=== PATIENT | female | born 1955 | race Caucasian/White ===

== ENCOUNTER 2017-03-21 12:44 | Emergency (ER) | payer MEDICARE ==
[2017-03-21 12:50] VITALS: RESP 18; TEMP 99
--- NOTE | 2017-03-21 13:31 | ED ---
General Adult HPI - General Chief complaint: Psychiatric Symptoms Stated complaint: Petitioned-Mental Health Time Seen by Provider: 03/21/17 13:18 Source: patient, RN notes reviewed Mode of arrival: ambulatory Limitations: no limitations - History of Present Illness Initial comments: Patient is a pleasant 61-year-old female presenting by EMS with police escort for mental health evaluation. Patient is unclear why she is here. Patient admits to not taking her medication. Patient admits to having agitation at times and confrontations with others. Patient admits she does not sleep much. Patient has been eating and showering. Patient denies suicidal or homicidal thoughts. Patient denies hallucinations. No alcohol or street drug use. - Related Data Home Medications Medication Instructions Recorded Confirmed Benazepril [Lotensin] 40 mg PO DAILY 03/04/14 03/21/17 HYDROcodone/APAP 10-325MG [[place] 1 tab PO BID 04/13/15 03/21/17 10-325] Cyclobenzaprine [Flexeril] 10 mg PO TID 03/21/17 03/21/17 QUEtiapine FUMARATE [Seroquel Xr] 300 mg PO HS 03/21/17 03/21/17 Allergies Allergy/AdvReac Type Severity Reaction Status Date / Time No Known Allergies Allergy Verified 03/21/17 14:36 Review of Systems ROS Statement: Those systems with pertinent positive or pertinent negative responses have been documented in the HPI. ROS Other: All systems not noted in ROS Statement are negative. Constitutional: Denies: fever Eyes: Denies: eye pain ENT: Denies: ear pain Respiratory: Denies: cough Cardiovascular: Denies: chest pain Endocrine: Denies: fatigue Gastrointestinal: Denies: abdominal pain Genitourinary: Denies: dysuria Musculoskeletal: Denies: back pain Skin: Denies: rash Neurological: Denies: weakness Psychiatric: Denies: auditory hallucinations, visual hallucinations Past Medical History Past Medical History: Hypertension Additional Past Medical History / Comment(s): chronic pain History of Any Multi-Drug Resistant Organisms: None Reported Past Surgical History: Hysterectomy Additional Past Surgical History / Comment(s): CARPAL TUNNEL, BILATERAL TOTAL KNEE REPLACEMENT Past Psychological History: Anxiety, Bipolar Smoking Status: Never smoker Past Alcohol Use History: Abuse, Daily Past Drug Use History: None Reported General Exam Limitations: no limitations General appearance: alert, in no apparent distress Head exam: Present: atraumatic, normocephalic Eye exam: Present: normal appearance, PERRL ENT exam: Present: normal oropharynx Neck exam: Present: normal inspection Respiratory exam: Present: normal lung sounds bilaterally Cardiovascular Exam: Present: regular rate, normal rhythm GI/Abdominal exam: Present: soft. Absent: tenderness Extremities exam: Present: other (Ecchymosis left leg without tenderness.) Neurological exam: Present: alert Psychiatric exam: Present: normal affect, normal mood Skin exam: Present: other (Left leg ecchymosis) Course Vital Signs 03/21/17 03/21/17 03/21/17 12:47 13:37 15:00 Temperature 99 F Pulse Rate 103 H 96 103 H Respiratory 18 18 18 Rate Blood Pressure 179/95 171/96 166/77 O2 Sat by Pulse 96 97 96 Oximetry 03/21/17 18:20 Temperature Pulse Rate 79 Respiratory 18 Rate Blood Pressure 157/97 O2 Sat by Pulse 97 Oximetry Medical Decision Making - Medical Decision Making Patient was seen by mental health services who does recommend discharge. Patient is agreeable to follow-up with her doctor this week. - Lab Data Lab Results 03/21/17 Range/Units 14:00 Urine Opiates Screen Not Detected (NotDetected) Ur Oxycodone Screen Not Detected (NotDetected) Urine Methadone Screen Not Detected (NotDetected) Ur Propoxyphene Screen Not Detected (NotDetected) Ur Barbiturates Screen Not Detected (NotDetected) U Tricyclic Antidepress Not Detected (NotDetected) Ur Phencyclidine Scrn Not Detected (NotDetected) Ur Amphetamines Screen Not Detected (NotDetected) U Methamphetamines Scrn Detected H (NotDetected) U Benzodiazepines Scrn Detected H (NotDetected) Urine Cocaine Screen Detected H (NotDetected) U Marijuana (THC) Screen Detected H (NotDetected) Disposition Clinical Impression: Poor mental health Disposition: HOME SELF-CARE Condition: Stable Instructions: Depression (ED) Additional Instructions: Please follow-up with your doctor this week. Return for thoughts of self-harm, not eating or sleeping, worsening symptoms or other concerns. Referrals: Adrianna Coates DO [Primary Care Provider] - 1-2 days Time of Disposition: 18:41
[2017-03-21 18:21] VITALS: BP 157/97; PULSE 79
== END 2017-03-21 18:58 | disposition home or self-care (01) ==
LOC: EC 12:44
DX: F99 Mental disorder, not otherwise specified (principal); T50.906A Underdosing of unspecified drugs, medicaments and biological substances, initial encounter; Z91.128 Patient's intentional underdosing of medication regimen for other reason; I10 Essential (primary) hypertension; G89.29 Other chronic pain; F41.9 Anxiety disorder, unspecified; F31.9 Bipolar disorder, unspecified; F14.90 Cocaine use, unspecified, uncomplicated; F12.90 Cannabis use, unspecified, uncomplicated; Z79.891 Long term (current) use of opiate analgesic; Z79.899 Other long term (current) drug therapy; Z72.89 Other problems related to lifestyle
CPT/HCPCS: 80306; 82075; 99285

== ENCOUNTER 2024-07-06 00:05 | Inpatient (IN) | payer MEDICARE, OTHER ==
--- NOTE | 2024-07-06 00:14 | ED ---
Altered Mental Status HPI - General Stated Complaint: AMS Time Seen by Provider: 07/06/24 00:10 Source: family, EMS Mode of arrival: EMS Limitations: altered mental status - History of Present Illness Initial Comments: This patient is a 69-year-old woman who arrives by ambulance to have evaluation of altered mental status. The patient does appear intoxicated/delirious and not able to give history. EMS reports that they were told patient frequently drinks. MD Complaint: altered mental status -: unknown Severity: severe Consistency of Symptoms: unknown Context: alcohol abuse Treatments Prior to Arrival: oxygen - Related Data Previous Rx's Medication Instructions Recorded Acetaminophen Tab [Tylenol] 650 mg PO Q6HR PRN tab 07/12/24 Furosemide [Lasix] 40 mg PO DAILY #7 tablet 07/12/24 HYDROcodone/APAP 5-325MG [[place] 1 tab PO Q4HR PRN 3 Days #18 tab 07/12/24 5-325] Ondansetron Odt [Zofran Odt] 4 mg PO Q8HR PRN #20 tab 07/12/24 Pantoprazole [Protonix] 40 mg PO BID #60 tab 07/12/24 Allergies Allergy/AdvReac Type Severity Reaction Status Date / Time No Known Allergies Allergy Verified 07/06/24 08:15 Review of Systems ROS Statement: Those systems with pertinent positive or pertinent negative responses have been documented in the HPI. ROS Other: All systems not noted in ROS Statement are negative. Limitations: ROS unobtainable due to patients medical condition Past Medical History Past Medical History: Hypertension Additional Past Medical History / Comment(s): chronic pain History of Any Multi-Drug Resistant Organisms: None Reported Past Surgical History: Hysterectomy Additional Past Surgical History / Comment(s): CARPAL TUNNEL, BILATERAL TOTAL KNEE REPLACEMENT Past Psychological History: Anxiety, Bipolar Past Alcohol Use History: Abuse, Daily Past Drug Use History: Cocaine, Marijuana, Methamphetamine General Exam General appearance: appears intoxicated, obtunded Head exam: Present: atraumatic, normocephalic Eye exam: Present: normal appearance, PERRL, EOMI, nystagmus. Absent: scleral icterus, conjunctival injection ENT exam: Present: normal oropharynx, mucous membranes dry Neck exam: Present: normal inspection, full ROM. Absent: tenderness, meningismus Respiratory exam: Present: normal lung sounds bilaterally. Absent: respiratory distress, wheezes, rales, rhonchi, stridor, accessory muscle use Cardiovascular Exam: Present: regular rate, normal rhythm, normal heart sounds. Absent: systolic murmur, diastolic murmur, rubs, gallop GI/Abdominal exam: Present: soft. Absent: distended, tenderness, guarding, rebound, rigid, mass Extremities exam: Present: normal inspection, normal capillary refill. Absent: pedal edema, calf tenderness Back exam: Present: normal inspection. Absent: CVA tenderness (R), CVA tenderness (L) Neurological exam: Present: altered, CN II-XII intact. Absent: motor sensory deficit Expanded Neurological exam: Present: protecting the airway Cranial nerves: EOM's Intact: Normal, Gag Reflex: Normal Motor strength exam: RUE: 5, LUE: 5, RLE: 5, LLE: 5 Eye Response: (3) open to voice Motor Response: (5) localizes to pain Verbal Response: incomprehensible sounds Estephanie Total: 10 Skin exam: Present: warm, dry, intact, pallor. Absent: rash Course Vital Signs 07/06/24 07/06/24 07/06/24 00:10 02:02 03:06 Temperature 97.5 F L Pulse Rate 91 97 96 Respiratory 20 20 20 Rate Blood Pressure 90/44 78/41 76/43 O2 Sat by Pulse 94 L 95 96 Oximetry 07/06/24 07/06/24 07/06/24 04:11 04:21 04:41 Temperature 97.3 F L 98.4 F Pulse Rate 104 H 106 H 102 H Respiratory 20 20 20 Rate Blood Pressure 68/39 82/51 82/47 O2 Sat by Pulse 99 98 Oximetry 07/06/24 07/06/24 07/06/24 05:28 05:57 06:12 Temperature 99 F Pulse Rate 98 104 H 105 H Respiratory 20 20 18 Rate Blood Pressure 88/58 109/61 110/74 O2 Sat by Pulse 100 98 99 Oximetry 07/06/24 07/06/24 07/06/24 06:38 06:48 06:52 Temperature 98.6 F 98.9 F 98.9 F Pulse Rate 105 H 104 H 104 H Respiratory 18 18 18 Rate Blood Pressure 98/55 107/77 107/77 O2 Sat by Pulse 100 98 98 Oximetry 07/06/24 07/06/24 07/06/24 07:42 08:39 17:37 Temperature 98.3 F Pulse Rate 100 98 78 Respiratory 18 18 20 Rate Blood Pressure 116/81 131/79 124/64 O2 Sat by Pulse 98 99 Oximetry Medical Decision Making - Medical Decision Making The patient had chest x-ray that interpreted as negative for acute infiltrate, pneumothorax, congestive heart failure The patient had CT scan of the brain that I interpreted as negative for acute bony injury, negative for acute intracranial hemorrhage or mass effect Patient is 69-year-old woman brought for altered mental status. Patient does appear intoxicated. Also at the initial exam there is dark stool suggestive of GI bleeding and the patient also has pallor. The patient subsequently found to be anemic and transfusion is ordered. IV Protonix ordered. Patient will be admitted for coverage against DTs and also to have additional workup for GI bleeding and anemia. Throughout the course in the emergency department the patient's family subsequently arrived and provided additional history that she is a regular drinker. The patient also became more alert and was able to follow commands. Was pt. sent in by a medical professional or institution ([facility], [employer], urgent care, hospital, or halfway...) When possible be specific @ -[No] Did you speak to anyone other than the patient for history (EMS, parent, family, police, friend...)? What history was obtained from this source @ -[EMS gave the initial history. Family member subsequently arrived and confirmed most details Did you review nursing and triage notes (agree or disagree)? Why? @ -[I reviewed and agree with nursing and triage notes] Were old charts reviewed (outside hosp., previous admission, EMS record, old EKG, old radiological studies, urgent care reports/EKG's, halfway records)? Report findings @ -[No old charts were reviewed] Differential Diagnosis (chest pain, altered mental status, abdominal pain women, abdominal pain men, vaginal bleeding, weakness, fever, dyspnea, syncope, headache, dizziness, GI bleed, back pain, seizure, CVA, palpatations, mental health, musculoskeletal)? @ -[Differential Altered Mental Status: Hypoglycemia, DKA, hypercapnia, ETOH, overdose, CO poisoning, trauma, myxedema coma, HTN encephalopathy, infection, encephalitis, psychosis, intercranial hemorrhage, hepatic encephalopathy, meningitis, CVA, this is not meant to be an all-inclusive list EKG interpreted by me (3pts min.). @ -[I interpreted as above] X-rays interpreted by me (1pt min.). @ -I interpreted as above CT interpreted by me (1pt min.). @ -[I interpreted as above U/S interpreted by me (1pt. min.). @ -[None done] What testing was considered but not performed or refused? (CT, X-rays, U/S, labs)? Why? @ -[None] What meds were considered but not given or refused? Why? @ -[None] Did you discuss the management of the patient with other professionals (professionals i.e. DrTerrance, PA, [employer], lab, RT, psych nurse, social sciences chair, comic artist, teacher, aviation ordnance officer, housing case manager)? Give summary @ -Case discussed with admitting physician and treatment recommendations are incorporated Was smoking cessation discussed for >3mins.? @ -[No] Was critical care preformed (if so, how long)? @ -[Yes, 40 minutes Were there social determinants of health that impacted care today? How? (Homelessness, low income, unemployed, alcoholism, drug addiction, transportation, low edu. Level, literacy, decrease access to med. care, half-way, rehab)? @ -[Suspect alcoholism Was there de-escalation of care discussed even if they declined (Discuss DNR or withdrawal of care, Hospice)? DNR status @ -[No] What co-morbidities impacted this encounter? (DM, HTN, Smoking, COPD, CAD, Cancer, CVA, ARF, Chemo, Hep., AIDS, mental health diagnosis, sleep apnea, morbid obesity)? @ -[None] Was patient admitted / discharged? Hospital course, mention meds given and route, prescriptions, significant lab abnormalities, going to OR and other pertinent info. @ -[Patient is a 69-year-old woman arriving to have evaluation for altered mental status. The patient also found to have significant anemia due to probable GI bleeding. The patient also with electrolyte abnormalities and will be admitted to have DT prophylaxis as well as workup of GI bleeding. Undiagnosed new problem with uncertain prognosis? @ -[No] Drug Therapy requiring intensive monitoring for toxicity (Heparin, Nitro, Insulin, Cardizem)? @ -[Yes, IV potassium, also blood transfusion Were any procedures done? @ -[No] Diagnosis/symptom? @ -[Acute altered mental status Acute alcohol intoxication Acute GI bleeding Acute anemia Acute hypokalemia Acute, or Chronic, or Acute on Chronic? @ -[Acute Uncomplicated (without systemic symptoms) or Complicated (systemic symptoms)? @ -[default] Side effects of treatment? @ -[No] Exacerbation, Progression, or Severe Exacerbation? @ -[No] Poses a threat to life or bodily function? How? (Chest pain, USA, VT, pneumonia, PE, COPD, DKA, ARF, appy, cholecystitis, CVA, Diverticulitis, Homicidal, Suicidal, threat to staff... and all critical care pts) @ -[Yes, there is risk of exsanguination. There is risk of DTs with significant morbidity and mortality. Note that this is a repeat document as the original appears to have been lost from the system - Lab Data Result diagrams: 07/11/24 02:56 07/11/24 02:56 Lab Results 07/06/24 07/06/24 07/06/24 Range/Units 00:21 00:21 00:21 WBC 10.7 H (3.8-10.6) k/uL RBC 1.22 L (3.80-5.40) m/uL Hgb 4.1 L* (11.4-16.0) gm/dL Hct 12.1 L* (34.0-46.0) % MCV 99.5 (80.0-100.0) fL MCH 33.5 (25.0-35.0) pg MCHC 33.6 (31.0-37.0) g/dL RDW 13.6 (11.5-15.5) % Plt Count 220 (150-450) k/uL MPV 8.2 Neutrophils % 67 % Lymphocytes % 24 % Monocytes % 6 % Eosinophils % 1 % Basophils % 0 % Neutrophils # 7.1 (1.3-7.7) k/uL Lymphocytes # 2.5 (1.0-4.8) k/uL Monocytes # 0.7 (0-1.0) k/uL Eosinophils # 0.1 (0-0.7) k/uL Basophils # 0.0 (0-0.2) k/uL PT (10.0-12.5) sec INR (<1.2) APTT (22.0-30.0) sec Sodium 138 (137-145) mmol/L Potassium 2.5 L* (3.5-5.1) mmol/L Chloride 93 L (98-107) mmol/L Carbon Dioxide 38 H (22-30) mmol/L Anion Gap 7 mmol/L BUN 45 H (7-17) mg/dL Creatinine 1.62 H (0.52-1.04) mg/dL Est GFR (CKD-EPI)AfAm 37 (>60 ml/min/1.73 sqM) Est GFR (CKD-EPI)NonAf 32 (>60 ml/min/1.73 sqM) Glucose 146 H (74-99) mg/dL POC Glucose (mg/dL) (70-110) mg/dL POC Glu Finishing Range Feeder ID Calcium 6.6 L (8.4-10.2) mg/dL Total Bilirubin <0.1 L (0.2-1.3) mg/dL AST 18 (14-36) U/L ALT 8 (4-34) U/L Alkaline Phosphatase 37 L (38-126) U/L Ammonia (<30) umol/L Troponin I 0.013 (0.000-0.034) ng/mL Total Protein 3.8 L (6.3-8.2) g/dL Albumin 2.1 L (3.5-5.0) g/dL Serum Alcohol 121 mg/dL Blood Type Blood Type Confirm Blood Type Recheck Bld Type Recheck Status Antibody Screen Crossmatch Spec Expiration Date 07/06/24 07/06/24 07/06/24 Range/Units 00:21 00:27 00:50 WBC (3.8-10.6) k/uL RBC (3.80-5.40) m/uL Hgb (11.4-16.0) gm/dL Hct (34.0-46.0) % MCV (80.0-100.0) fL MCH (25.0-35.0) pg MCHC (31.0-37.0) g/dL RDW (11.5-15.5) % Plt Count (150-450) k/uL MPV Neutrophils % % Lymphocytes % % Monocytes % % Eosinophils % % Basophils % % Neutrophils # (1.3-7.7) k/uL Lymphocytes # (1.0-4.8) k/uL Monocytes # (0-1.0) k/uL Eosinophils # (0-0.7) k/uL Basophils # (0-0.2) k/uL PT 11.8 (10.0-12.5) sec INR 1.1 (<1.2) APTT 22.8 (22.0-30.0) sec Sodium (137-145) mmol/L Potassium (3.5-5.1) mmol/L Chloride (98-107) mmol/L Carbon Dioxide (22-30) mmol/L Anion Gap mmol/L BUN (7-17) mg/dL Creatinine (0.52-1.04) mg/dL Est GFR (CKD-EPI)AfAm (>60 ml/min/1.73 sqM) Est GFR (CKD-EPI)NonAf (>60 ml/min/1.73 sqM) Glucose (74-99) mg/dL POC Glucose (mg/dL) 186 H (70-110) mg/dL POC Glu Finishing Range Feeder ID Burgess Arnold Calcium (8.4-10.2) mg/dL Total Bilirubin (0.2-1.3) mg/dL AST (14-36) U/L ALT (4-34) U/L Alkaline Phosphatase (38-126) U/L Ammonia <9 (<30) umol/L Troponin I (0.000-0.034) ng/mL Total Protein (6.3-8.2) g/dL Albumin (3.5-5.0) g/dL Serum Alcohol mg/dL Blood Type Blood Type Confirm Blood Type Recheck Bld Type Recheck Status Antibody Screen Crossmatch Spec Expiration Date 07/06/24 07/06/24 Range/Units 00:50 01:12 WBC (3.8-10.6) k/uL RBC (3.80-5.40) m/uL Hgb (11.4-16.0) gm/dL Hct (34.0-46.0) % MCV (80.0-100.0) fL MCH (25.0-35.0) pg MCHC (31.0-37.0) g/dL RDW (11.5-15.5) % Plt Count (150-450) k/uL MPV Neutrophils % % Lymphocytes % % Monocytes % % Eosinophils % % Basophils % % Neutrophils # (1.3-7.7) k/uL Lymphocytes # (1.0-4.8) k/uL Monocytes # (0-1.0) k/uL Eosinophils # (0-0.7) k/uL Basophils # (0-0.2) k/uL PT (10.0-12.5) sec INR (<1.2) APTT (22.0-30.0) sec Sodium (137-145) mmol/L Potassium (3.5-5.1) mmol/L Chloride (98-107) mmol/L Carbon Dioxide (22-30) mmol/L Anion Gap mmol/L BUN (7-17) mg/dL Creatinine (0.52-1.04) mg/dL Est GFR (CKD-EPI)AfAm (>60 ml/min/1.73 sqM) Est GFR (CKD-EPI)NonAf (>60 ml/min/1.73 sqM) Glucose (74-99) mg/dL POC Glucose (mg/dL) (70-110) mg/dL POC Glu Finishing Range Feeder ID Calcium (8.4-10.2) mg/dL Total Bilirubin (0.2-1.3) mg/dL AST (14-36) U/L ALT (4-34) U/L Alkaline Phosphatase (38-126) U/L Ammonia (<30) umol/L Troponin I (0.000-0.034) ng/mL Total Protein (6.3-8.2) g/dL Albumin (3.5-5.0) g/dL Serum Alcohol mg/dL Blood Type A Positive Blood Type Confirm A Positive Blood Type Recheck No Previous Record Bld Type Recheck Status CABO Indicated Antibody Screen NEGATIVE Crossmatch See Detail Spec Expiration Date 07/09/20242349 - EKG Data -: EKG Interpreted by Me EKG shows normal: sinus rhythm, axis (Normal), intervals, ST-T waves (Possible inferolateral ischemia, other T waves 1, aVL, 2, aVF, V3 through V6) Rate: normal (89 bpm) Disposition Clinical Impression: Altered mental status, Alcoholic intoxication, Anemia, Hypokalemia Disposition: ADMITTED IP TO THIS [facility] Condition: Serious Is patient prescribed a controlled substance at d/c from ED?: No
[2024-07-06 00:28] LABS: Glucose,Whole Blood 186 mg/dL (70-110)
[2024-07-06 00:32] LABS: Basophils % (A) 0 %; Eosinophils # (A) 0.1 k/uL (0-0.7); Eosinophils % (A) 1 %; Lymphocytes # (A) 2.5 k/uL (1.0-4.8); Lymphocytes % (A) 24 %; MCH 33.5 pg (25.0-35.0); MCHC 33.6 g/dL (31.0-37.0); MCV 99.5 fL (80.0-100.0); Mean Platelet Volume 8.2; Monocytes # (A) 0.7 k/uL (0-1.0); Monocytes % (A) 6 %; Neutrophils # (A) 7.1 k/uL (1.3-7.7); Neutrophils % (A) 67 %; Platelet Count 220 k/uL (150-450); RBC 1.22 m/uL (3.80-5.40); RDW 13.6 % (11.5-15.5); WBC 10.7 k/uL (3.8-10.6)
[2024-07-06 00:49] LABS: HCT 12.1 % (34.0-46.0); HGB 4.1 gm/dL (11.4-16.0)
[2024-07-06 00:54] LABS: ALT 8 U/L (4-34); AST 18 U/L (14-36); African American GFR (CKD) 37 (>60 ml/min/1.73 sqM); Albumin 2.1 g/dL (3.5-5.0); Alkaline Phosphatase 37 U/L (38-126); Blood Urea Nitrogen 45 mg/dL (7-17); Calcium 6.6 mg/dL (8.4-10.2); Chloride 93 mmol/L (98-107); Glucose 146 mg/dL (74-99); Non-African American GFR(CKD) 32 (>60 ml/min/1.73 sqM); Sodium 138 mmol/L (137-145); Total Bilirubin <0.1 mg/dL (0.2-1.3); Total Protein 3.8 g/dL (6.3-8.2)
[2024-07-06 01:00] LABS: Anion Gap 7 mmol/L
[2024-07-06 01:28] LABS: Alcohol 121 mg/dL; Carbon Dioxide 38 mmol/L (22-30); Potassium 2.5 mmol/L (3.5-5.1)
[2024-07-06] MEDS: SODIUM CHLORIDE 0.9% 500 ML 500 ML IV ONE (01:28)
[2024-07-06 01:38] LABS: INR 1.1 (<1.2); Partial Thromboplastin Time 22.8 sec (22.0-30.0); Prothrombin Time 11.8 sec (10.0-12.5)
[2024-07-06] MEDS: LORazepam 2 MG/ML INJ IV STA (01:58)
--- NOTE | 2024-07-06 02:08 | XR ---
EXAMINATION TYPE: XR chest 1V portable DATE OF EXAM: 07/06/2024 COMPARISON: CTA chest 2011 HISTORY: Altered mental status TECHNIQUE: Single frontal view of the chest is obtained. FINDINGS: There is no focal air space opacity, pleural effusion, or pneumothorax seen. The cardiac silhouette size is upper limits of normal. There is a healing or healed fracture of the posterior lef t fifth rib. IMPRESSION: No acute process. [facility], , 07/06/2024 2:05 AM
--- NOTE | 2024-07-06 02:09 | CT ---
EXAMINATION TYPE: CT brain wo con DATE OF EXAM: 07/06/2024 HISTORY: Pt coming from home. Pt AMS. Pt smells strong of alcohol. Pt arrived to the ER soiled with s tool. Automated Exposure Control for Dose Reduction was Utilized. TECHNIQUE: CT scan of the head is performed without contrast. COMPARISON: CT brain 2014. FINDINGS: There is no acute intracranial hemorrhage or midline shift identified. There is mild diff use ventricular and sulcal prominence . There is [id number] low-attenuation in the periventric ular white matter on the current study. The globes are intact and the visualized sinuses are clear. IMPRESSION: No acute intracranial hemorrhage or midline shift. There is mild diffuse age-related ce rebral atrophy and [id number] chronic small vessel ischemic change noted. [facility], , 07/06/2024 2:07 AM
[2024-07-06] MEDS ORDERED: NALOXONE 0.4 MG/ML 1 ML VIAL IV PRN (02:44)
[2024-07-06] MEDS: SODIUM CHLORIDE 0.9% 1,000 ML IV SCH (03:00)
[2024-07-06] MEDS: PANTOPRAZOLE 40 MG/10 ML VIAL IV SCH (03:00)
[2024-07-06] MEDS: LORazepam 2 MG/ML INJ IV PRN ×2 (03:04→04:17)
--- NOTE | 2024-07-06 04:00 | P.HPIM ---
History of Present Illness H&P Date: 07/06/24 Patient is a 69-year-old female with a PMH of alcohol abuse who was brought into the emergency room by EMS after she was found unresponsive at home by family members. The history is provided by the ED provider and from the family at the bedside (2 daughters). The patient was a lifelong history of alcohol abuse had been complaining of feeling somewhat under the weather over the past 2 to 3 days. The patient had cut down her daily alcohol intake during this time and she felt weak. She had also endorsed noticing some blood in her stools over the past several weeks to her daughters. Earlier this evening, the daughters went to her home to find her unresponsive on her couch with minimal bleeding. One of her daughters started CPR and activated EMS. Upon EMS arrival, the patient was noted to have soiled herself with bloody stools. In the emergency room, no meaningful history could be obtained from the patient as she was agitated and oriented only to self and not answering questions appropriately. CT brain was revealed mild to moderate chronic small vessel ischemic changes with chest x-ray unremarkable. EKG revealed sinus rhythm at [address] segment depression in leads V3 to V6 as well as lead II. There was diffuse T wave flattening. Laboratory evaluation was remarkable for hemoglobin 4.1 (previously 12.9 in 2017), potassium 2.5, chloride 93, CO2 38, BUN 45, creatinine 1.62, glucose 146, serum alcohol level 121 with troponin 0.013. Fecal occult blood was positive as per the ED provider. ED documentation reviewed and case discussed with ED provider. Review of systems: Pertinent positives and negatives as discussed in HPI, a complete review of systems was performed and all other systems are negative. Physical examination: Vital signs reviewed General: non toxic, no distress, appears at stated age, normal weight Derm: no unusual rashes/lesions, warm Head: atraumatic, normocephalic, symmetric Eyes: EOMI, no lid lag, anicteric sclera, pupils equal round reactive to light ENT: Nose and ears atraumatic Neck: No cervical lymphadenopathy, trachea midline, supple Mouth: no lip lesion, mucus membranes moist Cardiovascular: S1S2 reg, no murmur, positive dorsalis pedis pulse bilateral, no edema Lungs: CTA bilateral, no rhonchi, no rales, no accessory muscle use Abdominal: soft, nontender to palpation, no guarding Ext: muscle strength 5 out of 5 in all 4 extremities grossly, no gross muscle atrophy, no contractures Neuro: Agitated, no gross focal neuro deficits, moving all extremities, no notable facial droop Psych: Agitated, removing acutely attempting to remove all leads and monitors, oriented only to self Assessment: Severe anemia, suspect due to GI bleeding Altered mental status, suspect delirium tremens in setting of chronic alcohol abuse Hypokalemia Kidney injury, acute versus chronic Imaging: CT brain was revealed mild to moderate chronic small vessel ischemic changes with chest x-ray unremarkable. EKG revealed sinus rhythm at [address] segment depression in leads V3 to V6 as well as lead II. There was diffuse T wave flattening. Data Review: Laboratory evaluation was remarkable for hemoglobin 4.1 (previously 12.9 in 2017), potassium 2.5, chloride 93, CO2 38, BUN 45, creatinine 1.62, glucose 146, serum alcohol level 121 with troponin 0.013. Fecal occult blood was positive as per the ED provider. Plan: 2 unit of PRBCs ordered GI consulted Clear liquid diet Continue with Protonix IV every 12 hourly 40 mg Continue IV fluids with normal saline 125 cc/h Check magnesium levels Replace potassium Monitor BMP Fall and aspiration precautions CIWA protocol DVT prophylaxis: IPCDs The patient is admitted with an anticipated greater than 2 midnight stay for evaluation of anemia CODE STATUS: Full Code Discussed with: Patient Anticipated discharge place: Home Past Medical History Past Medical History: Hypertension Additional Past Medical History / Comment(s): chronic pain History of Any Multi-Drug Resistant Organisms: None Reported Past Surgical History: Hysterectomy Additional Past Surgical History / Comment(s): CARPAL TUNNEL, BILATERAL TOTAL KNEE REPLACEMENT Past Psychological History: Anxiety, Bipolar Past Alcohol Use History: Abuse, Daily Past Drug Use History: Cocaine, Marijuana, Methamphetamine Medications and Allergies Home Medications Medication Instructions Recorded Confirmed Type Amoxicillin/Potassium Clav 1 each PO Q12HR #20 tab 07/23/17 Rx [Augmentin 875-125 Tablet] RX: Naproxen Sodium [Naprelan] 500 mg PO BID #20 tab 07/23/17 Rx Allergies Allergy/AdvReac Type Severity Reaction Status Date / Time No Known Allergies Allergy Verified 07/23/17 10:46 Physical Exam Vitals: Vital Signs Temp Pulse Resp BP Pulse Ox 07/06/24 03:06 96 20 76/43 96 07/06/24 02:02 97 20 78/41 95 07/06/24 00:10 97.5 F L 91 20 90/44 94 L Intake and Output 07/05/24 07/05/24 07/06/24 14:59 22:59 06:59 Other: Weight 65.771 kg Results CBC & Chem 7: 07/06/24 00:21 07/06/24 00:21 Labs: Abnormal Lab Results - Last 24 Hours (Table) 07/06/24 07/06/24 07/06/24 Range/Units 00:21 00:21 00:27 WBC 10.7 H (3.8-10.6) k/uL RBC 1.22 L (3.80-5.40) m/uL Hgb 4.1 L* (11.4-16.0) gm/dL Hct 12.1 L* (34.0-46.0) % Potassium 2.5 L* (3.5-5.1) mmol/L Chloride 93 L (98-107) mmol/L Carbon Dioxide 38 H (22-30) mmol/L BUN 45 H (7-17) mg/dL Creatinine 1.62 H (0.52-1.04) mg/dL Glucose 146 H (74-99) mg/dL POC Glucose (mg/dL) 186 H (70-110) mg/dL Calcium 6.6 L (8.4-10.2) mg/dL Total Bilirubin <0.1 L (0.2-1.3) mg/dL Alkaline Phosphatase 37 L (38-126) U/L Total Protein 3.8 L (6.3-8.2) g/dL Albumin 2.1 L (3.5-5.0) g/dL Crossmatch 07/06/24 Range/Units 00:50 WBC (3.8-10.6) k/uL RBC (3.80-5.40) m/uL Hgb (11.4-16.0) gm/dL Hct (34.0-46.0) % Potassium (3.5-5.1) mmol/L Chloride (98-107) mmol/L Carbon Dioxide (22-30) mmol/L BUN (7-17) mg/dL Creatinine (0.52-1.04) mg/dL Glucose (74-99) mg/dL POC Glucose (mg/dL) (70-110) mg/dL Calcium (8.4-10.2) mg/dL Total Bilirubin (0.2-1.3) mg/dL Alkaline Phosphatase (38-126) U/L Total Protein (6.3-8.2) g/dL Albumin (3.5-5.0) g/dL Crossmatch See Detail
[2024-07-06] MEDS: POTASSIUM CHLORIDE 10 MEQ in WATER FOR INJECTION 1 100ML.BAG IVPB SCH ×2 (04:23→13:16)
[2024-07-06] MEDS: Acetaminophen-Codeine 300-30mg TAB PO STA (07:47)
[2024-07-06 10:25] LABS: HCT 21.1 % (34.0-46.0); MCH 32.3 pg (25.0-35.0); MCHC 33.8 g/dL (31.0-37.0); MCV 95.5 fL (80.0-100.0); Mean Platelet Volume 8.6; Platelet Count 184 k/uL (150-450); RBC 2.21 m/uL (3.80-5.40); RDW 15.6 % (11.5-15.5); WBC 13.4 k/uL (3.8-10.6)
[2024-07-06 10:31] LABS: African American GFR (CKD) 44 (>60 ml/min/1.73 sqM); Anion Gap 0 mmol/L; Blood Urea Nitrogen 47 mg/dL (7-17); Calcium 6.7 mg/dL (8.4-10.2); Carbon Dioxide 34 mmol/L (22-30); Chloride 105 mmol/L (98-107); Glucose 127 mg/dL (74-99); Non-African American GFR(CKD) 38 (>60 ml/min/1.73 sqM); Potassium 3.3 mmol/L (3.5-5.1); Sodium 139 mmol/L (137-145)
[2024-07-06 10:34] LABS: HGB 7.1 gm/dL (11.4-16.0)
--- NOTE | 2024-07-06 11:56 | P.CONS ---
History of Present Illness - Reason for Consult Consult date: 07/06/24 GI bleed Requesting physician: Amador Norton - Chief Complaint GI bleed, altered mental status changes - History of Present Illness This a pleasant 69-year-old white female who was brought into the emergency department yesterday after being found unresponsive by her family. Apparently patient had not been feeling well for last several days with nausea and vomiting as well as diarrhea. Reportedly patient had episode of coffee-ground emesis yesterday and 2 bowel movements that were black. Past medical history includes alcohol abuse, history of drug use, and hypertension. She denies any previous history of GI bleed. States she had no abdominal pain associated with it. States she did feel like she had fevers and chills. She was noted to have a hemoglobin of 4.2 on admission and gastroenterology was consulted for GI bleed. Patient was currently having a bowel movement, she had a small formed brown bowel movement. She has had no further notable dark stool since yesterday. No further emesis. Denies any history of peptic ulcer disease, no previous upper endoscopy. Last colonoscopy she reports in 1995. States that she has been taking quite a bit of Advil over the last couple weeks duration due to not feeling well. Denies any abdominal pain, no nausea or vomiting currently. States that she drinks 2 tall beers daily. States only current drug use is marijuana. States she has been drinking all of her life. She used to be a heavier drinker but has cut back recently. She is status post 2 units of blood Admitting labs WBC 10.7 hemoglobin 4.1 hematocrit 12.1 platelet count 220,000 INR 1.1 sodium 138 potassium 2.5 BUN 45 creatinine 1.6 total bilirubin less than 0.1 AST 18 ALT 8 alkaline phosphatase 37 ammonia less than 9 serum alcohol level 121 Review of Systems REVIEW OF SYSTEMS: CARDIOPULMONARY: No chest pain or shortness of breath. Gastrointestinal: No abdominal pain. No nausea or vomiting. No hematemesis, reported coffee-ground emesis x 1. No rectal bleeding, reported melena. GENITOURINARY: No dysuria or hematuria. MUSCULOSKELETAL: Reports normal range of motion. SKIN: No rashes. No jaundice. ENDOCRINE: No chills, fevers. No excessive weight gain or loss. No polydipsia or polyuria. PSYCHIATRIC: Unremarkable. NEUROLOGY: No change in mental status. Denies dizziness, headache. ENT: Vision unremarkable. CONSTITUTIONAL: No recent weight loss. No fever, chills, night sweats. Past Medical History Past Medical History: Hypertension Additional Past Medical History / Comment(s): chronic pain History of Any Multi-Drug Resistant Organisms: None Reported Past Surgical History: Hysterectomy Additional Past Surgical History / Comment(s): CARPAL TUNNEL, BILATERAL TOTAL KNEE REPLACEMENT Past Psychological History: Anxiety, Bipolar Past Alcohol Use History: Abuse, Daily Past Drug Use History: Cocaine, Marijuana, Methamphetamine Medications and Allergies Home Medications Medication Instructions Recorded Confirmed Type Ibuprofen [Motrin Ib] 200 mg PO Q6H PRN 07/06/24 07/06/24 History Allergies Allergy/AdvReac Type Severity Reaction Status Date / Time No Known Allergies Allergy Verified 07/06/24 08:15 Physical Exam Vitals: Vital Signs Temp Pulse Resp BP Pulse Ox 07/06/24 06:52 98.9 F 104 H 18 107/77 98 07/06/24 06:48 98.9 F 104 H 18 107/77 98 07/06/24 06:38 98.6 F 105 H 18 98/55 100 07/06/24 06:12 99 F 105 H 18 110/74 99 07/06/24 05:57 104 H 20 109/61 98 07/06/24 05:28 98 20 88/58 100 07/06/24 04:41 102 H 20 82/47 07/06/24 04:21 98.4 F 106 H 20 82/51 98 07/06/24 04:11 97.3 F L 104 H 20 68/39 99 07/06/24 03:06 96 20 76/43 96 07/06/24 02:02 97 20 78/41 95 07/06/24 00:10 97.5 F L 91 20 90/44 94 L Intake and Output 07/05/24 07/06/24 07/06/24 22:59 06:59 14:59 Intake Total 310 Balance 310 Intake: Blood Product 310 Rc As-1 Unit 0 [id number] Rc As-1 Unit 310 [id number] Other: Weight 65.771 kg General appearance: The patient is alert, oriented, appears in no acute distress. HET: Head is normocephalic and atraumatic. Pupils are equal and reactive. Neck: Supple. Heart: Regular. Lungs: Equal expansion, normal respiratory effort. Abdomen: Soft, nontender, nondistended. Extremities: Normal skin color and turgor. Neurological: No focal deficits. Alert and oriented x 3 Results CBC & Chem 7: 07/06/24 09:47 07/06/24 09:47 Labs: Abnormal Lab Results - Last 24 Hours (Table) 07/06/24 07/06/24 07/06/24 Range/Units 00:21 00:21 00:27 WBC 10.7 H (3.8-10.6) k/uL RBC 1.22 L (3.80-5.40) m/uL Hgb 4.1 L* (11.4-16.0) gm/dL Hct 12.1 L* (34.0-46.0) % Potassium 2.5 L* (3.5-5.1) mmol/L Chloride 93 L (98-107) mmol/L Carbon Dioxide 38 H (22-30) mmol/L BUN 45 H (7-17) mg/dL Creatinine 1.62 H (0.52-1.04) mg/dL Glucose 146 H (74-99) mg/dL POC Glucose (mg/dL) 186 H (70-110) mg/dL Calcium 6.6 L (8.4-10.2) mg/dL Total Bilirubin <0.1 L (0.2-1.3) mg/dL Alkaline Phosphatase 37 L (38-126) U/L Total Protein 3.8 L (6.3-8.2) g/dL Albumin 2.1 L (3.5-5.0) g/dL Crossmatch 07/06/24 Range/Units 00:50 WBC (3.8-10.6) k/uL RBC (3.80-5.40) m/uL Hgb (11.4-16.0) gm/dL Hct (34.0-46.0) % Potassium (3.5-5.1) mmol/L Chloride (98-107) mmol/L Carbon Dioxide (22-30) mmol/L BUN (7-17) mg/dL Creatinine (0.52-1.04) mg/dL Glucose (74-99) mg/dL POC Glucose (mg/dL) (70-110) mg/dL Calcium (8.4-10.2) mg/dL Total Bilirubin (0.2-1.3) mg/dL Alkaline Phosphatase (38-126) U/L Total Protein (6.3-8.2) g/dL Albumin (3.5-5.0) g/dL Crossmatch See Detail Assessment and Plan (1) GI bleed Narrative/Plan: 69-year-old female who is a daily drinker and was found to be unresponsive was brought into the emergency department also noted to be severely anemic with hemoglobin of 4.1. No previous GI bleed, he has not been feeling well and has been using quite a bit of NSAIDs. No anticoagulation. Reportedly had coffee-gr ound emesis well as hematemesis and dark black stools. Need to consider possible upper GI bleed with patient having hematemesis and black stool especially in the setting of alcohol abuse Current Visit: Yes Status: Acute Code(s): K92.2 - GASTROINTESTINAL HEMORRHAGE, UNSPECIFIED SNOMED Code(s): 42570715 (2) Anemia Current Visit: Yes Status: Acute Code(s): D64.9 - ANEMIA, UNSPECIFIED SNOMED Code(s): 671997831 (3) Hypokalemia Current Visit: Yes Status: Acute Code(s): E87.6 - HYPOKALEMIA SNOMED Code(s): 67975522 (4) Acute kidney injury Current Visit: Yes Status: Acute Code(s): N17.9 - ACUTE KIDNEY FAILURE, UNSPECIFIED SNOMED Code(s): 42933222 (5) Alcohol abuse Current Visit: Yes Status: Acute Code(s): F10.10 - ALCOHOL ABUSE, UNCOMPLICATED SNOMED Code(s): 74293902 Plan: 1. Continue symptomatic and supportive care 2. Protonix 40 mg daily 3. Avoid NSAIDs 4. Avoid anticoagulation 5. Patient may have clear liquid diet 6. Replace potassium per protocol 7. Repeat H&H, transfuse for hemoglobin less than 7 8. Will plan for EGD tomorrow 9. NPO. after midnight Thank you for this consultation, we will continue to follow. Dr. Lucila Singh I agree with the dictator's note, documented as a scribe by Jovita Cabrera.
[2024-07-06] MEDS: MAGNESIUM SULFATE-D5W PMX 1 GM in DEXTROSE/WATER 1 100ML.BAG IVPB SCH (13:17)
[2024-07-06 13:45] LABS: Appearance,Urine Clear (Clear); Bilirubin,Urine Negative (Negative); Blood,Urine Small (Negative); Color,Urine Colorless; Glucose,Urine (UA) Trace (Negative); Ketones,Urine Negative (Negative); Leukocyte Esterase,Urine Large (Negative); Nitrite,Urine Negative (Negative); PH, Urine 8.5 (5.0-8.0); Protein,Urine Trace (Negative); RBC,Urine 6 /hpf (0-5); Specific Gravity,Urine 1.015 (1.001-1.035); Squamous Epithelial Cell,Urine 4 /hpf (0-4); Urobilinogen,Urine <2.0 mg/dL (<2.0); WBC,Urine 23 /hpf (0-5)
[2024-07-06] MEDS: ACETAMINOPHEN TAB 325 MG TAB PO PRN (13:47)
[2024-07-06 13:58] LABS: Amphetamine Screen,Urine Not Detected (NotDetected); Barbiturate Screen,Urine Not Detected (NotDetected); Benzodiazepines Screen,Urine Detected (NotDetected); Cocaine Screen,Urine Not Detected (NotDetected); Methadone Screen, Urine Not Detected (NotDetected); Opiate Screen,Urine Detected (NotDetected); Oxycodone Screen, Urine Not Detected (NotDetected); Phencyclidine Screen,Urine Not Detected (NotDetected); Tricyclic Antidepressant,Urine Detected (NotDetected); Urn Cannabinoid Scrn Detected (NotDetected)
[2024-07-06 14:47] LABS: HCT 21.5 % (34.0-46.0); HGB 7.4 gm/dL (11.4-16.0); MCH 32.9 pg (25.0-35.0); MCHC 34.5 g/dL (31.0-37.0); MCV 95.5 fL (80.0-100.0); Mean Platelet Volume 9.4; Platelet Count 181 k/uL (150-450); Poikilocytosis Slight; RBC 2.25 m/uL (3.80-5.40); RDW 15.9 % (11.5-15.5); WBC 14.7 k/uL (3.8-10.6)
[2024-07-06] MEDS ORDERED: PEG 3350 (236 GM/BTL) + LYTES 4,000 ML BOTTLE PO ONE (17:00)
[2024-07-06] MEDS: LACTATED RINGERS 1,000 ML IV SCH (18:50)
[2024-07-06 23:27] LABS: Anisocytosis Slight; HGB 7.2 gm/dL (11.4-16.0); MCH 33.4 pg (25.0-35.0); MCHC 34.5 g/dL (31.0-37.0); MCV 96.7 fL (80.0-100.0); Macrocytosis Slight; Mean Platelet Volume 8.8; Platelet Count 182 k/uL (150-450); Poikilocytosis Slight; RBC 2.17 m/uL (3.80-5.40); RDW 16.4 % (11.5-15.5); WBC 15.7 k/uL (3.8-10.6)
[2024-07-07] MEDS: LORazepam 2 MG/ML INJ IV PRN (04:02)
[2024-07-07 04:04] LABS: Glucose,Whole Blood 110 mg/dL (70-110)
[2024-07-07] MEDS: PANTOPRAZOLE 40 MG/10 ML VIAL IV SCH (09:27)
[2024-07-07] MEDS: THIAMINE 100 MG TAB PO SCH (09:27)
[2024-07-07 09:40] LABS: Anisocytosis Slight; HGB 7.4 gm/dL (11.4-16.0); MCH 32.5 pg (25.0-35.0); MCHC 33.6 g/dL (31.0-37.0); MCV 96.8 fL (80.0-100.0); Macrocytosis Slight; Platelet Count 181 k/uL (150-450); Poikilocytosis Slight; RBC 2.27 m/uL (3.80-5.40); RDW 16.3 % (11.5-15.5); WBC 14.1 k/uL (3.8-10.6)
[2024-07-07 09:59] LABS: African American GFR (CKD) 70 (>60 ml/min/1.73 sqM); Anion Gap 1 mmol/L; Blood Urea Nitrogen 27 mg/dL (7-17); Calcium 7.6 mg/dL (8.4-10.2); Carbon Dioxide 24 mmol/L (22-30); Chloride 111 mmol/L (98-107); Glucose 83 mg/dL (74-99); Non-African American GFR(CKD) 61 (>60 ml/min/1.73 sqM); Potassium 3.9 mmol/L (3.5-5.1); Sodium 136 mmol/L (137-145)
--- NOTE | 2024-07-07 11:58 | P.PN ---
Subjective Progress Note Date: 07/07/24 69-year-old female with a PMH of alcohol abuse who was brought into the emergency room by EMS after she was found unresponsive at home by family members. Endorsed noticing some blood in her stools over the past several weeks to her daughters. Earlier this evening, the daughters went to her home to find her unresponsive on her couch with minimal bleeding. One of her daughters started CPR and activated EMS. Upon EMS arrival, the patient was noted to have soiled herself with bloody stools. CT brain was revealed mild to moderate chronic small vessel ischemic changes with chest x-ray unremarkable. EKG revealed sinus rhythm at [address] segment depression in leads V3 to V6 as well as lead II. There was diffuse T wave flattening. Laboratory evaluation was remarkable for hemoglobin 4.1 (previously 12.9 in 2017), potassium 2.5, chloride 93, CO2 38, BUN 45, creatinine 1.62, glucose 146, serum alcohol level 121 with troponin 0.013. Fecal occult blood was positive as per the ED provider. Patient was transfused 2 unit PRBC and started on Protonix IV. GI consulted, plans for EGD and C-scope. 07/07 Patient was seen and examined. No more bloody bowel movements or emesis. CBC, BMP this AM significant for WBC 14.1, RBC 2.27, Hg 7.4, Hct 22, Na 136, Cl 111, BUN 27, Ca 7.6. Mag 2. Plans for EGD + C-scope at 1PM. General: non toxic, no distress, appears at stated age Derm: warm, dry Head: atraumatic, normocephalic, symmetric Eyes: EOMI, no lid lag, anicteric sclera Mouth: no lip lesion, mucus membranes moist Cardiovascular: S1S2 reg, no murmur Lungs: Clear to auscultation bilateral, no rhonchi, no rales, no accessory muscle use Ext: no gross muscle atrophy, no edema, no contractures Neuro: no focal neuro deficits Psych: Alert, oriented, appropriate affect Based on my assessment of this patient, this patient meets a high complexity level of care. GI bleed: Protonix 40 mg IV QD. CBC Q8H. Transfuse if Hg < 7. Obtain Iron studies. GI plans for C-scope and EGD today. Acute metabolic encephalopathy: Likely related to EtOH withdrawal. Improving. Aspiration and Fall precautions. Obtain TSH, B12, Folate. Alcohol withdrawal: CIWA protocol with ativan PRN. Leukocytosis: Likely reactive. No signs of active infection. Monitor fever profile. Kidney injury, acute versus chronic: Continue NS at 130 cc/hr. Resolved: HypoMg, HypoK, Met alk CODE STATUS: FULL CODE DVT Prophylaxis: SCD GI Prophylaxis: Protonix. Designated medical POA if patient is not able to make medical decisions for themselves: I have reviewed the following strategy execution consultant notes: GI. I have reviewed the results of the following tests: CBC, BMP, Mag. I have ordered the following tests: I have discussed the care of this patient with the following independent historian: LEXUS Melchor. I have independently interpreted the following test below: Objective - Vital Signs Vital signs: Vital Signs Temp 98.3 F 07/07/24 08:07 Pulse 94 07/07/24 08:07 Resp 20 07/07/24 08:07 BP 174/87 07/07/24 08:07 Pulse Ox 95 07/07/24 08:07 FiO2 Intake & Output 07/06/24 07/07/24 07/07/24 18:59 06:59 18:59 Intake Total 310 Balance 310 Weight 65.771 kg 67.5 kg Intake: Blood Product 310 Rc As-1 Unit 310 [id number] Other: Voiding Method Bedpan # Voids 1 # Bowel Movements 1 - Labs CBC & Chem 7: 07/07/24 08:42 07/07/24 08:42 Labs: Abnormal Lab Results - Last 24 Hours (Table) 07/06/24 07/06/24 07/06/24 Range/Units 09:47 09:47 09:47 WBC 13.4 H (3.8-10.6) k/uL RBC 2.21 L (3.80-5.40) m/uL Hgb 7.1 L D (11.4-16.0) gm/dL Hct 21.1 L (34.0-46.0) % RDW 15.6 H (11.5-15.5) % Potassium 3.3 L (3.5-5.1) mmol/L Carbon Dioxide 34 H (22-30) mmol/L BUN 47 H (7-17) mg/dL Creatinine 1.42 H (0.52-1.04) mg/dL Glucose 127 H (74-99) mg/dL Calcium 6.7 L (8.4-10.2) mg/dL Magnesium 1.5 L (1.6-2.3) mg/dL Urine pH (5.0-8.0) Urine Protein (Negative) Urine Glucose (UA) (Negative) Urine Blood (Negative) Ur Leukocyte Esterase (Negative) Urine RBC (0-5) /hpf Urine WBC (0-5) /hpf Stool Occult Blood (Negative) Urine Opiates Screen (NotDetected) U Tricyclic Antidepress (NotDetected) U Benzodiazepines Scrn (NotDetected) U Marijuana (THC) Screen (NotDetected) 07/06/24 07/06/24 07/06/24 Range/Units 13:33 13:33 14:30 WBC 14.7 H (3.8-10.6) k/uL RBC 2.25 L (3.80-5.40) m/uL Hgb 7.4 L (11.4-16.0) gm/dL Hct 21.5 L (34.0-46.0) % RDW 15.9 H (11.5-15.5) % Potassium (3.5-5.1) mmol/L Carbon Dioxide (22-30) mmol/L BUN (7-17) mg/dL Creatinine (0.52-1.04) mg/dL Glucose (74-99) mg/dL Calcium (8.4-10.2) mg/dL Magnesium (1.6-2.3) mg/dL Urine pH 8.5 H (5.0-8.0) Urine Protein Trace H (Negative) Urine Glucose (UA) Trace H (Negative) Urine Blood Small H (Negative) Ur Leukocyte Esterase Large H (Negative) Urine RBC 6 H (0-5) /hpf Urine WBC 23 H (0-5) /hpf Stool Occult Blood (Negative) Urine Opiates Screen Detected H (NotDetected) U Tricyclic Antidepress Detected H (NotDetected) U Benzodiazepines Scrn Detected H (NotDetected) U Marijuana (THC) Screen Detected H (NotDetected) 07/06/24 07/06/24 Range/Units 20:29 22:58 WBC 15.7 H (3.8-10.6) k/uL RBC 2.17 L (3.80-5.40) m/uL Hgb 7.2 L (11.4-16.0) gm/dL Hct 21.0 L (34.0-46.0) % RDW 16.4 H (11.5-15.5) % Potassium (3.5-5.1) mmol/L Carbon Dioxide (22-30) mmol/L BUN (7-17) mg/dL Creatinine (0.52-1.04) mg/dL Glucose (74-99) mg/dL Calcium (8.4-10.2) mg/dL Magnesium (1.6-2.3) mg/dL Urine pH (5.0-8.0) Urine Protein (Negative) Urine Glucose (UA) (Negative) Urine Blood (Negative) Ur Leukocyte Esterase (Negative) Urine RBC (0-5) /hpf Urine WBC (0-5) /hpf Stool Occult Blood Positive H (Negative) Urine Opiates Screen (NotDetected) U Tricyclic Antidepress (NotDetected) U Benzodiazepines Scrn (NotDetected) U Marijuana (THC) Screen (NotDetected)
[2024-07-07] MEDS: IV FLUID CONTINUATION 1,000 ML IV ONE (12:30)
[2024-07-07] MEDS ORDERED: LIDOCAINE 1% INJ 10MG/ML (20 ML MDV) ONE ×2 (12:32→18:13)
[2024-07-07] MEDS ORDERED: PROPOFOL 10 MG/ML 20 ML VIAL IV ONE ×2 (12:32→18:13)
--- NOTE | 2024-07-07 12:51 | P.PCN ---
Date of Procedure: 07/07/24 Procedure(s) Performed: BRIEF HISTORY: Patient is a 69-year-old, pleasant, white female admitted to hospital with severe symptomatic anemia and hemoglobin of 4.5 g/dL requiring 3 years of biopsy transfusion. She has been having nausea vomiting coffee-ground emesis and black tarry stools for 2 days. History of alcohol abuse. Also takes Motrin on a regular basis.. PROCEDURE PERFORMED: Esophagogastroduodenoscopy with biopsy. PREOPERATIVE DIAGNOSIS: Acute upper GI bleed. IV sedation per anesthesia. PROCEDURE: After informed consent was obtained, the patient was brought into the endoscopy unit. IV sedation was administered by Anesthesia under continuous monitoring. Initially the Olympus GIF-140 video endoscope was inserted into the mouth. Esophagus intubated without any difficulty. It was gradually advanced into the stomach and duodenum and carefully examined. The bulb and the second part of the duodenum appeared normal. The scope at this time was withdrawn to the stomach, adequately insufflated with air, and upon careful examination, mucosa of the antrum, normal. There was a 2 cm deep ulceration along the incisura angularis with a brown pigmented spot but no active bleeding. Biopsies were done from the margin of the ulcer. Rest of the body, cardia and the fundus appeared normal. The scope was then withdrawn into the esophagus. Small hiatal hernia. The GE junction was located at 39 cm from the incisors. There was a short segment of Anaya's esophagus extending 3 mm proximal to the GE junction that was biopsied. The esophagus appeared normal. There were no erosions or ulcerations seen and the patient tolerated the procedure well. IMPRESSION: 1. 2 cm deep gastric ulceration with a brown pigmented spot but no active bleeding along the incisura angularis status post biopsy. 2. Short segment Anaya's esophagus s/p biopsy and small hiatal hernia RECOMMENDATIONS: The findings of this examination were discussed with the patient as well as her family. Follow-up with the biopsy results. She will continue with Protonix 40 mg twice daily.. Avoid NSAIDs. Start on a clear liquid diet and advance as tolerated. Recommend repeat upper endoscopy in 3 months to evaluate for ulcer healing.
[2024-07-07 14:12] LABS: Anisocytosis Slight; HCT 22.2 % (34.0-46.0); HGB 7.4 gm/dL (11.4-16.0); MCH 32.3 pg (25.0-35.0); MCHC 33.5 g/dL (31.0-37.0); MCV 96.3 fL (80.0-100.0); Mean Platelet Volume 8.7; Platelet Count 195 k/uL (150-450); Poikilocytosis Slight; RDW 16.3 % (11.5-15.5); WBC 14.2 k/uL (3.8-10.6)
[2024-07-07 17:14] LABS: Glucose,Whole Blood 132 mg/dL (70-110)
[2024-07-07 18:13] LABS: Anisocytosis Slight; MCH 32.6 pg (25.0-35.0); MCHC 33.9 g/dL (31.0-37.0); MCV 96.3 fL (80.0-100.0); Mean Platelet Volume 9.3; Platelet Count 203 k/uL (150-450); Poikilocytosis Slight; RBC 1.99 m/uL (3.80-5.40); RDW 16.3 % (11.5-15.5)
[2024-07-07 18:21] LABS: HCT 19.2 % (34.0-46.0); HGB 6.5 gm/dL (11.4-16.0)
[2024-07-07] MEDS: EPINEPHrine (PF) 1 MG/ML AMP MISCELLANE ONE (18:22)
--- NOTE | 2024-07-07 19:01 | P.PCN ---
Date of Procedure: 07/07/24 Procedure(s) Performed: BRIEF HISTORY: Patient is a 63-year-old, pleasant, white female admitted to hospital with acute upper GI bleed. She had an upper endoscopy done this afternoon around 1 PM and was noted to have a 2 cm deep antral ulcer along the incisura angularis with no active bleeding. There was a small pigmented spot noted but since there was no active bleeding no endoscopy intervention was performed except for biopsies. At 5:30 PM she had an episode of massive hematemesis and was transferred to the intensive care unit. Repeat CBC was 6.5 g/dL. Currently receiving 2 units of PRBC transfusion. She is scheduled for a repeat upper endoscopy in an emergency basis in the intensive care unit. PROCEDURE PERFORMED: Esophagogastroduodenoscopy with injection epinephrine and Endo Clip placement. PREOPERATIVE DIAGNOSIS: Acute upper GI bleed. IV sedation per anesthesia. PROCEDURE: After informed consent was obtained, the patient was brought into the endoscopy unit. IV sedation was administered by Anesthesia under continuous monitoring. Initially the Olympus GIF-140 video endoscope was inserted into the mouth. Esophagus intubated without any difficulty. It was gradually advanced into the stomach and duodenum and carefully examined. The bulb and the second part of the duodenum appeared normal. The scope at this time was withdrawn to the stomach, adequately insufflated with air, and upon careful examination, mucosa of the antrum, appeared normal. The previously noted gastric ulcer along the incisura angularis was noted which was actively bleeding. There was large clots noted in the fundus of the stomach with very aspirated. Therapeutic upper scope was used to aspirate all the clots. Following this the regular scope was used and was advanced into the stomach. 1 in 10,000 epinephrine was injected at the base of the ulcer until hemostasis was achieved. Following this 3 endoclips were placed on the bleeding ulcer and no further bleeding was noted and at this time the procedure was terminated. . Patient tolerated the procedure well. IMPRESSION: 1. Actively bleeding gastric ulceration measuring 2 cm in size along the incisura angularis status post injection epinephrine followed by Endo Clip placement with good hemostasis. RECOMMENDATIONS: The findings of this examination were discussed with the patient as well as her family. NG tube was placed. CBC will be performed every 6 hours. Transfused 2 units of blood. Continue IV Protonix 40 mg every 12 h ours. Surgical consultation is being requested as a standby at this time.
[2024-07-07] MEDS: PANTOPRAZOLE 40 MG/10 ML VIAL IVP STA (20:56)
--- NOTE | 2024-07-07 21:31 | XR ---
EXAMINATION TYPE: XR chest 1V portable DATE OF EXAM: 07/07/2024 9:15 PM CLINICAL INDICATION: Female, 69 years old with history of NG placement; COMPARISON: 07/06/2024 TECHNIQUE: XR chest 1V portable Frontal view of the chest. FINDINGS: Lungs/Pleura: There is no evidence of pleural effusion, focal consolidation, or pneumothorax. Pulmonary vascularity: Unremarkable. Heart/mediastinum: Cardiomediastinal silhouette is unremarkable. Musculoskeletal: No acute osseous pathology. Other findings: None IMPRESSION: No acute cardiopulmonary disease/process. [facility] Clare Murrell, , 07/07/2024 9:28 PM
[2024-07-08] MEDS: ACETAMINOPHEN IV (For NPO) 1,000 MG in EMPTY BAG 1 BAG IVPB ONE (01:44)
[2024-07-08 02:48] LABS: Basophils % (A) 0 %; Eosinophils # (A) 0.1 k/uL (0-0.7); Eosinophils % (A) 1 %; HCT 24.5 % (34.0-46.0); Lymphocytes # (A) 1.3 k/uL (1.0-4.8); Lymphocytes % (A) 11 %; MCH 32.1 pg (25.0-35.0); MCHC 34.3 g/dL (31.0-37.0); MCV 93.7 fL (80.0-100.0); Mean Platelet Volume 9.7; Monocytes # (A) 0.4 k/uL (0-1.0); Monocytes % (A) 3 %; Neutrophils # (A) 9.7 k/uL (1.3-7.7); Neutrophils % (A) 84 %; Platelet Count 153 k/uL (150-450); RBC 2.62 m/uL (3.80-5.40); RDW 15.6 % (11.5-15.5); WBC 11.5 k/uL (3.8-10.6)
[2024-07-08 03:08] LABS: HGB 8.4 gm/dL (11.4-16.0)
--- NOTE | 2024-07-08 04:56 | P.CNPUL ---
History of Present Illness Consult date: 07/08/24 Requesting physician: Yesenia Singh Reason for consult: other Chief complaint: GI bleeding, ICU management History of present illness: Patient is a 69-year-old white female with past medical history significant for alcoholism, polysubstance abuse. Patient has not followed with a primary care provider in over 4 years. Reportedly was found unresponsive on the ground by her family at home. Family briefly attempted CPR before calling EMS. According to the patient, she was having several days worth of black tarry stools. Apparently, had some abdominal discomfort and was treating this with Motrin [id number] every 4 hours. Denies anticoagulants. She denies any history of GI bleed. On arrival to the ED on 07/06/2024, her hemoglobin was critically low at 4.1 g/dL. Dr. Manjarrez did take the patient for EGD yesterday found a 2 cm deep gastric ulceration, but no active bleeding. This area was biopsied. There was also short segment Anaya esophagus. Patient was admitted to the selective care unit for observation. While on the floor, developed hematemesis. Rapid response team was initiated. Underwent bedside EGD, and is status post epinephrine injection and Endo Clip placement. Patient has received a total of 3 units PRBCs, an additional unit of packed red blood cells was infusing at the moment. She is now being evaluated in the intensive care unit. No further GI bleeding noted by nursing staff. Most recent hemoglobin is up to 6.5 g/dL. Denies shortness of breath, chest pain, lightheadedness. Blood pressure normotensive. Nontachycardic. Patient is currently tearful. Reportedly drinks 2, 24 ounce beers per day. Serum alcohol level was 121 on arrival. Patient is on the [facility] protocol. Urine toxicology screen positive for opiates, TCAs, benzodiazepines, and marijuana. CBC: WBC count 13, hemoglobin 6.5, hematocrit 19.2, platelets 203. CMP: Sodium 136, potassium 3.9, chloride 111, serum bicarb 24, BUN 27, creatinine 0.96, glucose 132. LFTs unremarkable on arrival. Ammonia less than 9. Troponin 0.013. Normal saline infusing at 125 mL/h. Not on any vasopressors. Review of Systems Constitutional: Denies chills, Denies fever, Denies weight gain, Denies weight loss Ears, nose, mouth and throat: Denies dysphagia (Still waiting Bella or having any trouble swallowing at home), Denies nasal discharge (Throat pain into because of the then NG tube because of the tube going 9-year-old), Denies swelling in mouth ( no), Denies swelling in throat, Denies sore throat Cardiovascular: Reports syncope, Denies chest pain, Denies leg edema, Denies lightheadedness, Denies shortness of breath Respiratory: Denies cough, Denies dyspnea, Denies hemoptysis Gastrointestinal: Reports abdominal pain, Reports diarrhea, Reports hematemesis, Reports melena, Reports nausea, Reports vomiting, Denies coffee ground emesis, Denies hematochezia Genitourinary: Denies dysuria Musculoskeletal: Denies limitation of motion Integumentary: Denies rash Neurological: Reports memory loss, Reports syncope, Denies confusion Psychiatric: Reports anxiety, Denies depression, Denies suicidal ideation Past Medical History Past Medical History: Hypertension Additional Past Medical History / Comment(s): chronic pain, ETOH, GI bleed. History of Any Multi-Drug Resistant Organisms: None Reported Past Surgical History: Hysterectomy Additional Past Surgical History / Comment(s): CARPAL TUNNEL, BILATERAL TOTAL KNEE REPLACEMENT Past Anesthesia/Blood Transfusion Reactions: No Reported Reaction Past Psychological History: Anxiety, Bipolar Smoking Status: Current some day smoker Past Alcohol Use History: Abuse, Daily Additional Past Alcohol Use History / Comment(s): Per pt. and daughter, pt. has been sober x1 year and relapsed today Past Drug Use History: Cocaine, Marijuana, Methamphetamine Medications and Allergies Home Medications Medication Instructions Recorded Confirmed Type Ibuprofen [Motrin Ib] 200 mg PO Q6H PRN 07/06/24 07/06/24 History Allergies Allergy/AdvReac Type Severity Reaction Status Date / Time No Known Allergies Allergy Verified 07/06/24 08:15 Physical Exam Vitals: Vital Signs Temp Pulse Pulse Resp BP BP Pulse Ox 07/07/24 23:19 98.5 F 85 23 177/90 96 07/07/24 23:00 86 15 144/76 97 07/07/24 22:45 84 23 148/70 99 07/07/24 22:30 84 23 138/74 97 07/07/24 22:15 85 22 143/68 99 07/07/24 22:00 85 24 151/76 98 07/07/24 21:45 86 22 159/78 99 07/07/24 21:39 99.1 F 88 18 159/78 99 07/07/24 21:30 88 24 171/86 100 07/07/24 21:19 98.6 F 91 16 171/86 98 07/07/24 21:15 89 22 162/85 99 07/07/24 21:07 98.5 F 90 24 165/87 98 07/07/24 21:04 98.4 F 90 24 162/85 96 07/07/24 21:00 86 22 97 07/07/24 20:45 118 H 24 98 07/07/24 20:30 85 16 97 07/07/24 20:15 83 22 97 07/07/24 20:00 98.5 F 89 17 155/79 96 07/07/24 19:45 85 22 144/77 97 07/07/24 19:30 86 24 130/66 97 07/07/24 19:15 84 24 139/68 96 07/07/24 19:00 84 12 115/61 98 07/07/24 18:45 79 12 91/46 96 07/07/24 18:39 98.1 F 85 12 100/58 07/07/24 18:30 87 12 101/53 97 07/07/24 18:19 97.6 F 87 18 133/72 97 07/07/24 18:15 93 27 H 129/65 96 07/07/24 18:00 92 36 H 131/74 94 L 07/07/24 17:45 97.4 F L 95 19 131/74 96 07/07/24 17:08 97.5 F L 110 H 20 148/76 97 07/07/24 16:00 97.3 F L 87 20 149/70 96 07/07/24 10:48 98.6 F 85 24 164/83 95 07/07/24 08:07 98.3 F 94 20 174/87 95 07/07/24 08:00 98.3 F 94 20 174/87 95 07/07/24 04:00 85 22 149/76 92 L 07/07/24 02:00 87 18 Intake and Output 07/07/24 07/07/24 07/08/24 14:59 22:59 06:59 Intake Total 100 907 435 Output Total 600 0 0 Balance -500 907 435 Intake: IV 100 625 125 Sodium Chloride 0.9% 1, 625 125 000 ml @ 125 mls/hr IV . Q8H [facility] Rx#:[id number] Blood Product 282 310 Rc As-1 Unit 0 310 [id number] Rc Pheresis 2 As3 Unit 282 [id number] Output: Urine 600 0 0 Other: Voiding Method Bedpan GENERAL EXAM: Alert, 69-year-old white female, laying on her left lateral side, NG tube to LIS, comfortable in no apparent distress. HEAD: Normocephalic and atraumatic EYES: Normal reaction of pupils, equal size. NOSE: Clear with pink turbinates. THROAT: No erythema or exudates. NECK: No masses, no JVD. CHEST: No chest wall deformity. LUNGS: Equal air entry with no crackles, wheeze, rhonchi or dullness. On room air. No conversational dyspnea or accessory muscle use.. CVS: S1 and S2 normal with no audible murmur, regular rhythm. No extra heart sounds ABDOMEN: No hepatosplenomegaly, active bowel sounds, no guarding or rigidity. SPINE: No scoliosis or deformity SKIN: No rashes CENTRAL NERVOUS SYSTEM: No focal deficits, tone is normal in all 4 extremities. EXTREMITIES: There is no peripheral edema, clubbing, or cyanosis. Peripheral pulses are intact. Results - Laboratory Findings CBC and BMP: 07/08/24 01:24 07/07/24 08:42 PT/INR, D-dimer PT 11.8 sec (10.0-12.5) 07/06/24 00:50 INR 1.1 (<1.2) 07/06/24 00:50 Abnormal lab findings: Abnormal Labs 07/06/24 07/06/24 07/06/24 00:21 00:21 00:27 WBC 10.7 H RBC 1.22 L Hgb 4.1 L* Hct 12.1 L* RDW Sodium Potassium 2.5 L* Chloride 93 L Carbon Dioxide 38 H BUN 45 H Creatinine 1.62 H Glucose 146 H POC Glucose (mg/dL) 186 H Calcium 6.6 L Magnesium Total Bilirubin <0.1 L Alkaline Phosphatase 37 L Total Protein 3.8 L Albumin 2.1 L Urine pH Urine Protein Urine Glucose (UA) Urine Blood Ur Leukocyte Esterase Urine RBC Urine WBC Stool Occult Blood Urine Opiates Screen U Tricyclic Antidepress U Benzodiazepines Scrn U Marijuana (THC) Screen Crossmatch 07/06/24 07/06/24 07/06/24 00:50 09:47 09:47 WBC 13.4 H RBC 2.21 L Hgb 7.1 L D Hct 21.1 L RDW 15.6 H Sodium Potassium Chloride Carbon Dioxide BUN Creatinine Glucose POC Glucose (mg/dL) Calcium Magnesium 1.5 L Total Bilirubin Alkaline Phosphatase Total Protein Albumin Urine pH Urine Protein Urine Glucose (UA) Urine Blood Ur Leukocyte Esterase Urine RBC Urine WBC Stool Occult Blood Urine Opiates Screen U Tricyclic Antidepress U Benzodiazepines Scrn U Marijuana (THC) Screen Crossmatch See Detail 07/06/24 07/06/24 07/06/24 09:47 13:33 13:33 WBC RBC Hgb Hct RDW Sodium Potassium 3.3 L Chloride Carbon Dioxide 34 H BUN 47 H Creatinine 1.42 H Glucose 127 H POC Glucose (mg/dL) Calcium 6.7 L Magnesium Total Bilirubin Alkaline Phosphatase Total Protein Albumin Urine pH 8.5 H Urine Protein Trace H Urine Glucose (UA) Trace H Urine Blood Small H Ur Leukocyte Esterase Large H Urine RBC 6 H Urine WBC 23 H Stool Occult Blood Urine Opiates Screen Detected H U Tricyclic Antidepress Detected H U Benzodiazepines Scrn Detected H U Marijuana (THC) Screen Detected H Crossmatch 07/06/24 07/06/24 07/06/24 14:30 20:29 22:58 WBC 14.7 H 15.7 H RBC 2.25 L 2.17 L Hgb 7.4 L 7.2 L Hct 21.5 L 21.0 L RDW 15.9 H 16.4 H Sodium Potassium Chloride Carbon Dioxide BUN Creatinine Glucose POC Glucose (mg/dL) Calcium Magnesium Total Bilirubin Alkaline Phosphatase Total Protein Albumin Urine pH Urine Protein Urine Glucose (UA) Urine Blood Ur Leukocyte Esterase Urine RBC Urine WBC Stool Occult Blood Positive H Urine Opiates Screen U Tricyclic Antidepress U Benzodiazepines Scrn U Marijuana (THC) Screen Crossmatch 07/07/24 07/07/24 07/07/24 08:42 08:42 13:52 WBC 14.1 H 14.2 H RBC 2.27 L 2.30 L Hgb 7.4 L 7.4 L Hct 22.0 L 22.2 L RDW 16.3 H 16.3 H Sodium 136 L Potassium Chloride 111 H Carbon Dioxide BUN 27 H Creatinine Glucose POC Glucose (mg/dL) Calcium 7.6 L Magnesium Total Bilirubin Alkaline Phosphatase Total Protein Albumin Urine pH Urine Protein Urine Glucose (UA) Urine Blood Ur Leukocyte Esterase Urine RBC Urine WBC Stool Occult Blood Urine Opiates Screen U Tricyclic Antidepress U Benzodiazepines Scrn U Marijuana (THC) Screen Crossmatch 07/07/24 07/07/24 17:13 17:22 WBC 13.0 H RBC 1.99 L Hgb 6.5 L* Hct 19.2 L* RDW 16.3 H Sodium Potassium Chloride Carbon Dioxide BUN Creatinine Glucose POC Glucose (mg/dL) 132 H Calcium Magnesium Total Bilirubin Alkaline Phosphatase Total Protein Albumin Urine pH Urine Protein Urine Glucose (UA) Urine Blood Ur Leukocyte Esterase Urine RBC Urine WBC Stool Occult Blood Urine Opiates Screen U Tricyclic Antidepress U Benzodiazepines Scrn U Marijuana (THC) Screen Crossmatch - Diagnostic Findings Chest x-ray: image reviewed Assessment and Plan Assessment: Acute upper GI bleeding, status post EGD x 2, found to have antral gastric ulcer status post epi injection and Endo Clip. Hemostasis achieved. No further active bleeding noted per nursing staff. Has received a total of 3 units PRBCs so far Acute blood loss anemia, secondary to above, most recent hemoglobin up to 6.5 g/dL, an additional unit of PRBCs is infusing at the moment Syncopal event Anaya's esophagus Acute alcohol intoxication, reportedly drinks 2, 24 ounce beers per day, serum EtOH level was 121 on arrival History of alcoholism Polysubstance abuse, urine toxicology screen positive for opiates, TCAs, benzodiazepines, and marijuana. History of cocaine/methamphetamine use in the past Remote history of tobacco use Plan: Patient's medications, labs, imaging were reviewed Patient was admitted for acute upper GI bleed, status post EGD x 2. Currently being monitored in the intensive care unit. Most recent hemoglobin up to 6.5 grams per deciliter, and patient is receiving an additional unit of packed red blood cells. Blood pressure and hemodynamics have remained stable throughout, not requiring any vasopressor support. Patient's gastric ulcer likely exacerbated by frequent NSAID use, Patient was educated on abstaining from further NSAID use Continue Protonix twice daily Monitor CIWA per protocol We will continue to follow the patient while in the intensive care unit I have personally seen and examined the patient, performed the documentation and the assessment and plan as written. Number of minutes spent on the visit:20 Time with Patient: Greater than 30
[2024-07-08 06:48] LABS: HCT 23.8 % (34.0-46.0); HGB 8.4 gm/dL (11.4-16.0); MCH 33.3 pg (25.0-35.0); MCHC 35.2 g/dL (31.0-37.0); MCV 94.5 fL (80.0-100.0); Mean Platelet Volume 8.8; Platelet Count 140 k/uL (150-450); Poikilocytosis Slight; RBC 2.52 m/uL (3.80-5.40); RDW 15.8 % (11.5-15.5)
[2024-07-08 07:30] LABS: African American GFR (CKD) 78 (>60 ml/min/1.73 sqM); Anion Gap 3 mmol/L; Blood Urea Nitrogen 26 mg/dL (7-17); Calcium 7.1 mg/dL (8.4-10.2); Carbon Dioxide 20 mmol/L (22-30); Chloride 114 mmol/L (98-107); Glucose 87 mg/dL (74-99); Non-African American GFR(CKD) 68 (>60 ml/min/1.73 sqM); Potassium 3.6 mmol/L (3.5-5.1); Sodium 137 mmol/L (137-145)
[2024-07-08] MEDS: ONDANSETRON 4 MG/2 ML VIAL IVP PRN (09:13)
[2024-07-08] MEDS: THIAMINE 100 MG/ML 2 ML VIAL IVP SCH (11:05)
--- NOTE | 2024-07-08 13:27 | P.GSCN ---
History of Present Illness Consult date: 07/08/24 History of present illness: CHIEF COMPLAINT: Altered mental status HISTORY OF PRESENT ILLNESS: This is a 69-year-old female who was found unresponsive by her family. She had not been feeling well for the last several days with nausea and vomiting. Patient was having coffee ground emesis with melanotic stools. She was initially evaluated by GI service and had EGD c ompleted yesterday which did reveal a 2 cm deep gastric ulceration with no active bleeding and a short segment of Anaya's esophagus and a small hiatal hernia. In the evening patient had a massive episode of hematemesis and required transfer to the ICU. Hemoglobin at that time was 6.5 and she received 2 units of blood. Another emergent EGD done yesterday ending by GI service that had shown an active bleeding gastric ulcer and is status post epinephrine injection with clip. Patient's hemoglobin on admission was 4.1. Patient has received a total of 4 units of blood during this admission and is currently in the ICU. Likely will be transferred out of the ICU this afternoon. She did have another black stool and a small amount of maroon output through NG tube. Surgical service has been consulted remain on standby due to patient's GI bleed. Patient does have history of alcohol dependence. PAST MEDICAL HISTORY: See below PAST SURGICAL HISTORY: See below MEDICATIONS: See below ALLERGIES: See below SOCIAL HISTORY: No illicit drug use. Daily alcohol use, cocaine, marijuana and methamphetamines REVIEW OF SYSTEMS: CONSTITUTIONAL: Denies fever or chills. HEENT: Denies blurred vision, vision changes, or eye pain. Denies hemoptysis CARDIOVASCULAR: Denies chest pain or pressure. RESPIRATORY: No shortness of breath. GASTROINTESTINAL: See HPI for pertinent findings HEMATOLOGIC: Denies bleeding disorders. GENITOURINARY: Denies any blood in urine or increased urinary frequency. SKIN: Denies pruitis. Denies rash. PHYSICAL EXAM: VITAL SIGNS: Reviewed GENERAL: Well-developed in no acute distress. HEENT: No sclera icterus. Extraocular movements grossly intact. Moist buccal mucosa. Head is atraumatic, normocephalic. No nasal drainage. ABDOMEN: Soft. Nondistended. Mild tenderness epigastric area NEUROLOGIC: Alert and oriented. Cranial nerves II through XII grossly intact. LABORATORY DATA: WBC 11 Hgb 4.1 and did go up to 7.4 then down to 6.5 yesterday and now up to 8.4 after blood transfusion Platelets 140 Sodium 137 potassium 3.6 creatinine 0.88 IMAGING: ASSESSMENT: 1. Acute GI bleed with a 2 cm bleeding gastric ulcer status post epinephrine injection and clip by GI service 2. Acute blood loss anemia due to bleeding gastric ulcer 3. Daily alcohol use 4. Polysubstance abuse PLAN: -Surgical service will remain on standby -Continue to follow -Continue to monitor for any signs or symptoms of bleeding -Continue to monitor hemoglobin -Continue IV Protonix -Keep patient n.p.o. Physician Counter Hand note has been reviewed by physician. Signing provider agrees with the documented findings, assessment, and plan of care. Past Medical History Past Medical History: Hypertension Additional Past Medical History / Comment(s): chronic pain, ETOH, GI bleed. History of Any Multi-Drug Resistant Organisms: None Reported Past Surgical History: Hysterectomy Additional Past Surgical History / Comment(s): CARPAL TUNNEL, BILATERAL TOTAL KNEE REPLACEMENT Past Anesthesia/Blood Transfusion Reactions: No Reported Reaction Past Psychological History: Anxiety, Bipolar Smoking Status: Current some day smoker Past Alcohol Use History: Abuse, Daily Additional Past Alcohol Use History / Comment(s): Per pt. and daughter, pt. has been sober x1 year and relapsed today Past Drug Use History: Cocaine, Marijuana, Methamphetamine Medications and Allergies Home Medications Medication Instructions Recorded Confirmed Type Ibuprofen [Motrin Ib] 200 mg PO Q6H PRN 07/06/24 07/06/24 History Allergies Allergy/AdvReac Type Severity Reaction Status Date / Time No Known Allergies Allergy Verified 07/06/24 08:15 Surgical - Exam Osteopathic Statement: *. No significant issues noted on an osteopathic structural exam other than those noted in the History and Physical/Consult. Vital Signs Temp Pulse Resp BP Pulse Ox 97.5 F L 91 20 90/44 94 L 07/06/24 00:10 07/06/24 00:10 07/06/24 00:10 07/06/24 00:10 07/06/24 00:10 Results - Labs 07/08/24 06:17 07/08/24 06:17 Abnormal Lab Results - Last 24 Hours (Table) 07/06/24 07/07/24 07/07/24 Range/Units 00:50 13:52 17:13 WBC 14.2 H (3.8-10.6) k/uL RBC 2.30 L (3.80-5.40) m/uL Hgb 7.4 L (11.4-16.0) gm/dL Hct 22.2 L (34.0-46.0) % RDW 16.3 H (11.5-15.5) % Plt Count (150-450) k/uL Neutrophils # (1.3-7.7) k/uL Chloride (98-107) mmol/L Carbon Dioxide (22-30) mmol/L BUN (7-17) mg/dL POC Glucose (mg/dL) 132 H (70-110) mg/dL Calcium (8.4-10.2) mg/dL Crossmatch See Detail 07/07/24 07/08/24 07/08/24 Range/Units 17:22 01:24 06:17 WBC 13.0 H 11.5 H 11.0 H (3.8-10.6) k/uL RBC 1.99 L 2.62 L 2.52 L (3.80-5.40) m/uL Hgb 6.5 L* 8.4 L D 8.4 L (11.4-16.0) gm/dL Hct 19.2 L* 24.5 L 23.8 L (34.0-46.0) % RDW 16.3 H 15.6 H 15.8 H (11.5-15.5) % Plt Count 140 L (150-450) k/uL Neutrophils # 9.7 H (1.3-7.7) k/uL Chloride (98-107) mmol/L Carbon Dioxide (22-30) mmol/L BUN (7-17) mg/dL POC Glucose (mg/dL) (70-110) mg/dL Calcium (8.4-10.2) mg/dL Crossmatch 07/08/24 Range/Units 06:17 WBC (3.8-10.6) k/uL RBC (3.80-5.40) m/uL Hgb (11.4-16.0) gm/dL Hct (34.0-46.0) % RDW (11.5-15.5) % Plt Count (150-450) k/uL Neutrophils # (1.3-7.7) k/uL Chloride 114 H (98-107) mmol/L Carbon Dioxide 20 L (22-30) mmol/L BUN 26 H (7-17) mg/dL POC Glucose (mg/dL) (70-110) mg/dL Calcium 7.1 L (8.4-10.2) mg/dL Crossmatch Diabetes panel 07/08/24 Range/Units 06:17 Sodium 137 (137-145) mmol/L Potassium 3.6 (3.5-5.1) mmol/L Chloride 114 H (98-107) mmol/L Carbon Dioxide 20 L (22-30) mmol/L BUN 26 H (7-17) mg/dL Creatinine 0.88 (0.52-1.04) mg/dL Glucose 87 (74-99) mg/dL Calcium 7.1 L (8.4-10.2) mg/dL Calcium panel 07/08/24 Range/Units 06:17 Calcium 7.1 L (8.4-10.2) mg/dL Pituitary panel 07/08/24 Range/Units 06:17 Sodium 137 (137-145) mmol/L Potassium 3.6 (3.5-5.1) mmol/L Chloride 114 H (98-107) mmol/L Carbon Dioxide 20 L (22-30) mmol/L BUN 26 H (7-17) mg/dL Creatinine 0.88 (0.52-1.04) mg/dL Glucose 87 (74-99) mg/dL Calcium 7.1 L (8.4-10.2) mg/dL Adrenal panel 07/08/24 Range/Units 06:17 Sodium 137 (137-145) mmol/L Potassium 3.6 (3.5-5.1) mmol/L Chloride 114 H (98-107) mmol/L Carbon Dioxide 20 L (22-30) mmol/L BUN 26 H (7-17) mg/dL Creatinine 0.88 (0.52-1.04) mg/dL Glucose 87 (74-99) mg/dL Calcium 7.1 L (8.4-10.2) mg/dL Assessment and Plan Assessment: 69 yo female w/ 2cm gastric ulcer s/p clip/injection -will continue to monitor for signs of perforation -no surgical intervention at this time, defer to GI for diet Time with Patient: Less than 30
[2024-07-08] MEDS: BENZOCAINE/MENTHOL LOZENG 1 EACH LOZENGE MUCOUS MEM PRN (13:28)
--- NOTE | 2024-07-08 13:33 | P.PN ---
Subjective Progress Note Date: 07/08/24 69-year-old female with a PMH of alcohol abuse who was brought into the emergency room by EMS after she was found unresponsive at home by family members. Endorsed noticing some blood in her stools over the past several weeks to her daughters. Earlier this evening, the daughters went to her home to find her unresponsive on her couch with minimal bleeding. One of her daughters started CPR and activated EMS. Upon EMS arrival, the patient was noted to have soiled herself with bloody stools. CT brain was revealed mild to moderate chronic small vessel ischemic changes with chest x-ray unremarkable. EKG revealed sinus rhythm at [address] segment depression in leads V3 to V6 as well as lead II. There was diffuse T wave flattening. Laboratory evaluation was remarkable for hemoglobin 4.1 (previously 12.9 in 2017), potassium 2.5, chloride 93, CO2 38, BUN 45, creatinine 1.62, glucose 146, serum alcohol level 121 with troponin 0.013. Fecal occult blood was positive as per the ED provider. Patient was transfused 2 unit PRBC and started on Protonix IV. GI consulted, underwent EGD which showed 2 cm deep gastric ulceration with a brown pigmented spot but no active bleeding along the incisura angularis. Around 5:30PM, she started to have profuse hematemesis (2L per RN). Patient was transferred to the ICU and transfused another [address] Singh performed a bedside EGD which showed actively bleeding gastric ulceration measuring 2 cm in size along the incisura angularis status post injection epinephrine followed by Endo Clip placement with good hemostasis. 07/08 Patient was seen and examined. No more hematemesis since EGD. Currently with NG tube. CBC, BMP significant for WBC 11, RBC 2.52, Hg 8.4, Hct 23.8, Plt 140, Cl 114, bicarb 20, BUN 26, Ca 7.1. General: non toxic, no distress, appears at stated age Derm: warm, dry Head: atraumatic, normocephalic, symmetric, NG tube in place. Eyes: EOMI, no lid lag, anicteric sclera Mouth: no lip lesion, mucus membranes moist Cardiovascular: S1S2 reg, no murmur Lungs: Clear to auscultation bilateral, no rhonchi, no rales, no accessory muscle use Ext: no gross muscle atrophy, no edema, no contractures Neuro: no focal neuro deficits Psych: Alert, oriented, appropriate affect Based on my assessment of this patient, this patient meets a high complexity level of care. GI bleed: Status post 4 unit PRBC. Status post GD which showed actively bleeding gastric ulceration measuring 2 cm in size along the incisura angularis status post injection epinephrine followed by Endo Clip placement with good hemostasis. Protonix 40 mg IV BID. Transfuse if Hg < 7. GI on board. Acute metabolic encephalopathy: Likely related to EtOH withdrawal and severe anemia. Improved. Aspiration and Fall precautions. Alcohol withdrawal: CIWA protocol with ativan PRN. Leukocytosis: Likely reactive. No signs of active infection. Monitor fever profi le. Prerenal azotemia: DC IVF and encourage hydration by mouth. Resolved: HypoMg, HypoK, Acute metabolic encephalopathy CODE STATUS: FULL CODE DVT Prophylaxis: SCD GI Prophylaxis: Protonix. Designated medical POA if patient is not able to make medical decisions for themselves: I have reviewed the following valuation consultant notes: GI, Pulmonary I have reviewed the results of the following tests: CBC, BMP I have ordered the following tests: CBC I have discussed the care of this patient with the following independent historian: I have independently interpreted the following test below: Objective - Vital Signs Vital signs: Vital Signs Temp 98.6 F 07/08/24 08:00 Pulse 82 07/08/24 08:00 Resp 25 H 07/08/24 08:00 BP 164/91 07/08/24 08:00 Pulse Ox 95 07/08/24 08:00 FiO2 Intake & Output 07/07/24 07/08/24 07/08/24 18:59 06:59 18:59 Intake Total 225 2092 125 Output Total 600 2000 0 Balance -375 92 125 Weight 67.3 kg Intake: IV 225 1500 125 Sodium Chloride 0.9% 1, 125 1500 125 000 ml @ 125 mls/hr IV . Q8H [facility] Rx#:[id number] Blood Product 0 592 Rc As-1 Unit 310 [id number] Rc Pheresis 2 As3 Unit 0 282 [id number] Output: Urine 600 2000 0 Other: Voiding Method Bedpan # Voids 1 # Bowel Movements 1 - Labs CBC & Chem 7: 07/08/24 06:17 07/08/24 06:17 Labs: Abnormal Lab Results - Last 24 Hours (Table) 07/06/24 07/07/24 07/07/24 Range/Units 00:50 08:42 08:42 WBC 14.1 H (3.8-10.6) k/uL RBC 2.27 L (3.80-5.40) m/uL Hgb 7.4 L (11.4-16.0) gm/dL Hct 22.0 L (34.0-46.0) % RDW 16.3 H (11.5-15.5) % Plt Count (150-450) k/uL Neutrophils # (1.3-7.7) k/uL Sodium 136 L (137-145) mmol/L Chloride 111 H (98-107) mmol/L Carbon Dioxide (22-30) mmol/L BUN 27 H (7-17) mg/dL POC Glucose (mg/dL) (70-110) mg/dL Calcium 7.6 L (8.4-10.2) mg/dL Crossmatch See Detail 07/07/24 07/07/24 07/07/24 Range/Units 13:52 17:13 17:22 WBC 14.2 H 13.0 H (3.8-10.6) k/uL RBC 2.30 L 1.99 L (3.80-5.40) m/uL Hgb 7.4 L 6.5 L* (11.4-16.0) gm/dL Hct 22.2 L 19.2 L* (34.0-46.0) % RDW 16.3 H 16.3 H (11.5-15.5) % Plt Count (150-450) k/uL Neutrophils # (1.3-7.7) k/uL Sodium (137-145) mmol/L Chloride (98-107) mmol/L Carbon Dioxide (22-30) mmol/L BUN (7-17) mg/dL POC Glucose (mg/dL) 132 H (70-110) mg/dL Calcium (8.4-10.2) mg/dL Crossmatch 07/08/24 07/08/24 07/08/24 Range/Units 01:24 06:17 06:17 WBC 11.5 H 11.0 H (3.8-10.6) k/uL RBC 2.62 L 2.52 L (3.80-5.40) m/uL Hgb 8.4 L D 8.4 L (11.4-16.0) gm/dL Hct 24.5 L 23.8 L (34.0-46.0) % RDW 15.6 H 15.8 H (11.5-15.5) % Plt Count 140 L (150-450) k/uL Neutrophils # 9.7 H (1.3-7.7) k/uL Sodium (137-145) mmol/L Chloride 114 H (98-107) mmol/L Carbon Dioxide 20 L (22-30) mmol/L BUN 26 H (7-17) mg/dL POC Glucose (mg/dL) (70-110) mg/dL Calcium 7.1 L (8.4-10.2) mg/dL Crossmatch
--- NOTE | 2024-07-08 13:42 | P.PN ---
Subjective Progress Note Date: 07/08/24 Principal diagnosis: GI bleed This a pleasant 69-year-old white female who was brought into the emergency department yesterday after being found unresponsive by her family. Apparently patient had not been feeling well for last several days with nausea and vomiting as well as diarrhea. Reportedly patient had episode of coffee-ground emesis yesterday and 2 bowel movements that were black. Past medical history includes alcohol abuse, history of drug use, and hypertension. She denies any previous history of GI bleed. States she had no abdominal pain associated with it. S tates she did feel like she had fevers and chills. She was noted to have a hemoglobin of 4.2 on admission and gastroenterology was consulted for GI bleed. Patient was currently having a bowel movement, she had a small formed brown bowel movement. She has had no further notable dark stool since yesterday. No further emesis. Denies any history of peptic ulcer disease, no previous upper endoscopy. Last colonoscopy she reports in 1995. States that she has been taking quite a bit of Advil over the last couple weeks duration due to not feeling well. Denies any abdominal pain, no nausea or vomiting currently. States that she drinks 2 tall beers daily. States only current drug use is marijuana. States she has been drinking all of her life. She used to be a heavier drinker but has cut back recently. She is status post 2 units of blood Admitting labs WBC 10.7 hemoglobin 4.1 hematocrit 12.1 platelet count 220,000 INR 1.1 sodium 138 potassium 2.5 BUN 45 creatinine 1.6 total bilirubin less than 0.1 AST 18 ALT 8 alkaline phosphatase 37 ammonia less than 9 serum alcohol level 121 07/08/2024 Patient seen and examined today as a follow-up. Yesterday evening she ended up going back for another endoscopy as she had vomited blood yesterday. She was found to have an actively bleeding gastric ulcer measuring 2 cm in size status post injection of epinephrine followed by Endo Clip placement with good hemostasis. Patient denies any further vomiting. She has 100 cc of dark maroon-colored output from NG tube. Does complain of some epigastric pain. Objective - Vital Signs Vital signs: Vital Signs Temp 98.6 F 07/08/24 08:00 Pulse 82 07/08/24 08:00 Resp 25 H 07/08/24 08:00 BP 164/91 07/08/24 08:00 Pulse Ox 95 07/08/24 08:00 FiO2 Intake & Output 07/07/24 07/08/24 07/08/24 18:59 06:59 18:59 Intake Total 225 2092 125 Output Total 600 2000 0 Balance -375 92 125 Weight 67.3 kg Intake: IV 225 1500 125 Sodium Chloride 0.9% 1, 125 1500 125 000 ml @ 125 mls/hr IV . Q8H [facility] Rx#:[id number] Blood Product 0 592 Rc As-1 Unit 310 [id number] Rc Pheresis 2 As3 Unit 0 282 [id number] Output: Urine 600 2000 0 Other: Voiding Method Bedpan # Voids 1 # Bowel Movements 1 - Exam General appearance: The patient is alert, oriented, appears in no acute distress. HET: Head is normocephalic and atraumatic. Conjunctiva pink. Sclera anicteric. Neck: Supple without lymphadenopathy. Abdomen: Soft, epigastric tenderness, nondistended. Extremities: Normal skin color and turgor. No pedal edema Skin: No rashes, no jaundice Neurological: No focal deficits. Alert and oriented. - Labs CBC & Chem 7: 07/08/24 06:17 07/08/24 06:17 Labs: Abnormal Lab Results - Last 24 Hours (Table) 07/06/24 07/07/24 07/07/24 Range/Units 00:50 08:42 08:42 WBC 14.1 H (3.8-10.6) k/uL RBC 2.27 L (3.80-5.40) m/uL Hgb 7.4 L (11.4-16.0) gm/dL Hct 22.0 L (34.0-46.0) % RDW 16.3 H (11.5-15.5) % Plt Count (150-450) k/uL Neutrophils # (1.3-7.7) k/uL Sodium 136 L (137-145) mmol/L Chloride 111 H (98-107) mmol/L Carbon Dioxide (22-30) mmol/L BUN 27 H (7-17) mg/dL POC Glucose (mg/dL) (70-110) mg/dL Calcium 7.6 L (8.4-10.2) mg/dL Crossmatch See Detail 07/07/24 07/07/24 07/07/24 Range/Units 13:52 17:13 17:22 WBC 14.2 H 13.0 H (3.8-10.6) k/uL RBC 2.30 L 1.99 L (3.80-5.40) m/uL Hgb 7.4 L 6.5 L* (11.4-16.0) gm/dL Hct 22.2 L 19.2 L* (34.0-46.0) % RDW 16.3 H 16.3 H (11.5-15.5) % Plt Count (150-450) k/uL Neutrophils # (1.3-7.7) k/uL Sodium (137-145) mmol/L Chloride (98-107) mmol/L Carbon Dioxide (22-30) mmol/L BUN (7-17) mg/dL POC Glucose (mg/dL) 132 H (70-110) mg/dL Calcium (8.4-10.2) mg/dL Crossmatch 07/08/24 07/08/24 07/08/24 Range/Units 01:24 06:17 06:17 WBC 11.5 H 11.0 H (3.8-10.6) k/uL RBC 2.62 L 2.52 L (3.80-5.40) m/uL Hgb 8.4 L D 8.4 L (11.4-16.0) gm/dL Hct 24.5 L 23.8 L (34.0-46.0) % RDW 15.6 H 15.8 H (11.5-15.5) % Plt Count 140 L (150-450) k/uL Neutrophils # 9.7 H (1.3-7.7) k/uL Sodium (137-145) mmol/L Chloride 114 H (98-107) mmol/L Carbon Dioxide 20 L (22-30) mmol/L BUN 26 H (7-17) mg/dL POC Glucose (mg/dL) (70-110) mg/dL Calcium 7.1 L (8.4-10.2) mg/dL Crossmatch Assessment and Plan (1) GI bleed Narrative/Plan: 69-year-old female who is a daily drinker and was found to be unresponsive was brought into the emergency department also noted to be severely anemic with hemoglobin of 4.1. No previous GI bleed, he has not been feeling well and has been using quite a bit of NSAIDs. No anticoagulation. Reportedly had coffee- ground emesis well as hematemesis and dark black stools. Need to consider possible upper GI bleed with patient having hematemesis and black stool especially in the setting of alcohol abuse Current Visit: Yes Status: Acute Code(s): K92.2 - GASTROINTESTINAL HEMORRHAGE, UNSPECIFIED SNOMED Code(s): 44477617 (2) Anemia Current Visit: Yes Status: Acute Code(s): D64.9 - ANEMIA, UNSPECIFIED SNOMED Code(s): 255886231 (3) Hypokalemia Current Visit: Yes Status: Acute Code(s): E87.6 - HYPOKALEMIA SNOMED Code(s): 30324880 (4) Acute kidney injury Current Visit: Yes Status: Acute Code(s): N17.9 - ACUTE KIDNEY FAILURE, UNSPECIFIED SNOMED Code(s): 98154212 (5) Alcohol abuse Current Visit: Yes Status: Acute Code(s): F10.10 - ALCOHOL ABUSE, UNCOMPLICATED SNOMED Code(s): 48409677 (6) Gastric ulcer Narrative/Plan: Patient had second look endoscopy for hematemesis with findings of a 2 cm actively bleeding gastric ulcer status post epinephrine injection and Endo Clip placement Current Visit: Yes Status: Acute Code(s): K25.9 - GASTRIC ULCER, UNSP ACUTE OR CHRONIC, W/O HEMOR OR PERF SNOMED Code(s): 819381579 Plan: 1. Continue symptomatic and supportive care 2. Protonix 40 mg twice daily 3. Avoid NSAIDs 4. Avoid anticoagulation 5. DC NG tube 6. Advance to clear liquid diet 7. Daily CBC, transfuse for hemoglobin less than 7 Thank you for this consultation, we will continue to follow. Dr. Lucila Singh I agree with the dictator's note, documented as a scribe by Jovita Cabrera.
[2024-07-08] MEDS: MORPHINE SULFATE 2 MG/ML SYRINGE IVP PRN (14:03)
[2024-07-08] MEDS ORDERED: Potassium Replacement Protocol 1 EACH MISC MISCELLANE PRN (19:11)
[2024-07-08] MEDS: POTASSIUM BICARBONATE/CIT AC 20 MEQ TABLET.EFF NG-TUBE SCH (20:02)
[2024-07-09 07:42] LABS: Basophils % (A) 0 %; Eosinophils # (A) 0.2 k/uL (0-0.7); Eosinophils % (A) 3 %; HCT 25.2 % (34.0-46.0); HGB 8.1 gm/dL (11.4-16.0); Hypochromasia Slight; Lymphocytes # (A) 0.9 k/uL (1.0-4.8); Lymphocytes % (A) 10 %; MCH 31.3 pg (25.0-35.0); MCHC 32.2 g/dL (31.0-37.0); MCV 97.3 fL (80.0-100.0); Mean Platelet Volume 8.5; Monocytes # (A) 0.3 k/uL (0-1.0); Monocytes % (A) 4 %; Neutrophils # (A) 7.1 k/uL (1.3-7.7); Neutrophils % (A) 81 %; Platelet Count 170 k/uL (150-450); RBC 2.59 m/uL (3.80-5.40); RDW 15.6 % (11.5-15.5); WBC 8.8 k/uL (3.8-10.6)
[2024-07-09 08:00] LABS: African American GFR (CKD) 84 (>60 ml/min/1.73 sqM); Anion Gap 3 mmol/L; Blood Urea Nitrogen 16 mg/dL (7-17); Calcium 7.6 mg/dL (8.4-10.2); Carbon Dioxide 20 mmol/L (22-30); Chloride 111 mmol/L (98-107); Glucose 79 mg/dL (74-99); Non-African American GFR(CKD) 73 (>60 ml/min/1.73 sqM); Potassium 3.5 mmol/L (3.5-5.1); Sodium 134 mmol/L (137-145)
[2024-07-09] MEDS ORDERED: POTASSIUM CHLORIDE 10 MEQ in WATER FOR INJECTION 1 100ML.BAG IVPB SCH (09:00)
[2024-07-09] MEDS: POTASSIUM CHLORIDE 10 MEQ in SODIUM CHLORIDE 0.9% 100 ML IVPB SCH (09:44)
--- NOTE | 2024-07-09 11:35 | P.PN ---
Subjective Progress Note Date: 07/09/24 SURGICAL PROGRESS NOTE CHIEF COMPLAINT: 2 cm bleeding gastric ulcer HISTORY OF PRESENT ILLNESS: Patient is status post epinephrine injection and clipping yesterday by GI service for the 2 cm bleeding gastric ulcer. Patient reports no further bleeding. Hemoglobin is stable at 8.1. Her main complaint i s she is going through DTs. Vital stable. PHYSICAL EXAM: VITAL SIGNS: Reviewed. GENERAL: Well-developed in no acute distress. ABDOMEN: Soft. Nondistended. NEUROLOGIC: Alert and oriented. Cranial nerves II through XII grossly intact. ASSESSMENT: 1. Acute GI bleed with a 2 cm bleeding gastric ulcer status post epinephrine injection and clip by GI service 2. Acute blood loss anemia due to bleeding gastric ulcer 3. Daily alcohol use 4. Polysubstance abuse PLAN: -Surgical service will continue to follow -Continue to monitor for any signs or symptoms of bleeding -Continue to monitor hemoglobin -Continue IV Protonix Physician Grill Attendant note has been reviewed by physician. Signing provider agrees with the documented findings, assessment, and plan of care. Attestation Patient seen and examined at bedside. Hemoglobin currently 8.1. Patient denying any further blood in her stool. She is complaining that she is going through DTs and is being managed by ICU for this. Continue with IV Protonix. Continue to monitor hemoglobin. Continue GI recommendations. Will continue to follow. Yony Rhoades, Objective - Vital Signs Vital signs: Vital Signs Temp 98.9 F 07/09/24 08:00 Pulse 85 07/09/24 09:00 Resp 25 H 07/09/24 09:00 BP 157/91 07/09/24 09:00 Pulse Ox 95 07/09/24 09:00 FiO2 Intake & Output 07/08/24 07/09/24 07/09/24 18:59 06:59 18:59 Intake Total 1150 240 Output Total 1802 1400 400 Balance -652 -1160 -400 Weight 67.3 kg Intake: IV 850 Sodium Chloride 0.9% 1, 850 000 ml @ 125 mls/hr IV . Q8H [facility] Rx#:[id number] Oral 300 240 Output: Gastric Drainage 100 Urine 1700 1400 400 Stool 2 Other: Voiding Method Bedside Commode Bedside Commode Bedside Commode Bedpan # Voids 1 1 # Bowel Movements 1 - Labs CBC & Chem 7: 07/09/24 06:33 07/09/24 06:33 Labs: Abnormal Lab Results - Last 24 Hours (Table) 07/09/24 07/09/24 Range/Units 06:33 06:33 RBC 2.59 L (3.80-5.40) m/uL Hgb 8.1 L (11.4-16.0) gm/dL Hct 25.2 L (34.0-46.0) % RDW 15.6 H (11.5-15.5) % Lymphocytes # 0.9 L (1.0-4.8) k/uL Sodium 134 L (137-145) mmol/L Chloride 111 H (98-107) mmol/L Carbon Dioxide 20 L (22-30) mmol/L Calcium 7.6 L (8.4-10.2) mg/dL
--- NOTE | 2024-07-09 12:08 | P.PN ---
Subjective Progress Note Date: 07/09/24 Principal diagnosis: GI bleed This a pleasant 69-year-old white female who was brought into the emergency department yesterday after being found unresponsive by her family. Apparently patient had not been feeling well for last several days with nausea and vomiting as well as diarrhea. Reportedly patient had episode of coffee-ground emesis yesterday and 2 bowel movements that were black. Past medical history includes alcohol abuse, history of drug use, and hypertension. She denies any previous history of GI bleed. States she had no abdominal pain associated with it. S tates she did feel like she had fevers and chills. She was noted to have a hemoglobin of 4.2 on admission and gastroenterology was consulted for GI bleed. Patient was currently having a bowel movement, she had a small formed brown bowel movement. She has had no further notable dark stool since yesterday. No further emesis. Denies any history of peptic ulcer disease, no previous upper endoscopy. Last colonoscopy she reports in 1995. States that she has been taking quite a bit of Advil over the last couple weeks duration due to not feeling well. Denies any abdominal pain, no nausea or vomiting currently. States that she drinks 2 tall beers daily. States only current drug use is marijuana. States she has been drinking all of her life. She used to be a heavier drinker but has cut back recently. She is status post 2 units of blood Admitting labs WBC 10.7 hemoglobin 4.1 hematocrit 12.1 platelet count 220,000 INR 1.1 sodium 138 potassium 2.5 BUN 45 creatinine 1.6 total bilirubin less than 0.1 AST 18 ALT 8 alkaline phosphatase 37 ammonia less than 9 serum alcohol level 121 07/08/2024 Patient seen and examined today as a follow-up. Yesterday evening she ended up going back for another endoscopy as she had vomited blood yesterday. She was found to have an actively bleeding gastric ulcer measuring 2 cm in size status post injection of epinephrine followed by Endo Clip placement with good hemostasis. Patient denies any further vomiting. She has 100 cc of dark maroon-colored output from NG tube. Does complain of some epigastric pain. 07/09/2024 Patient is seen and examined today as a follow-up. Patient is shaky and states she has pain all over feels like she is going through alcohol withdrawal right now. Stated she had some nausea but no vomiting. No hematemesis and no blood in her stool. Hemoglobin currently stable at 8.1 platelet count 170,000 BUN 16 creatinine 0.8 Objective - Vital Signs Vital signs: Vital Signs Temp 98.8 F 07/09/24 04:00 Pulse 81 07/09/24 07:00 Resp 24 07/09/24 07:00 BP 151/78 07/09/24 07:00 Pulse Ox 96 07/09/24 07:00 FiO2 Intake & Output 07/08/24 07/09/24 07/09/24 18:59 06:59 18:59 Intake Total 1150 240 Output Total 1802 1400 200 Balance -652 -1160 -200 Weight 67.3 kg Intake: IV 850 Sodium Chloride 0.9% 1, 850 000 ml @ 125 mls/hr IV . Q8H [facility] Rx#:[id number] Oral 300 240 Output: Gastric Drainage 100 Urine 1700 1400 200 Stool 2 Other: Voiding Method Bedside Commode Bedside Commode # Voids 1 1 # Bowel Movements 1 - Exam General appearance: The patient is alert, oriented, patient is shaky, appears to having withdrawal symptoms, appears in no acute distress. HET: Head is normocephalic and atraumatic. Conjunctiva pink. Sclera anicteric. Neck: Supple without lymphadenopathy. Abdomen: Soft, epigastric tenderness, nondistended. Extremities: Normal skin color and turgor. No pedal edema Skin: No rashes, no jaundice Neurological: No focal deficits. Alert and oriented. - Labs CBC & Chem 7: 07/09/24 06:33 07/09/24 06:33 Labs: Abnormal Lab Results - Last 24 Hours (Table) 07/09/24 07/09/24 Range/Units 06:33 06:33 RBC 2.59 L (3.80-5.40) m/uL Hgb 8.1 L (11.4-16.0) gm/dL Hct 25.2 L (34.0-46.0) % RDW 15.6 H (11.5-15.5) % Lymphocytes # 0.9 L (1.0-4.8) k/uL Sodium 134 L (137-145) mmol/L Chloride 111 H (98-107) mmol/L Carbon Dioxide 20 L (22-30) mmol/L Calcium 7.6 L (8.4-10.2) mg/dL Assessment and Plan (1) GI bleed Narrative/Plan: 69-year-old female who is a daily drinker and was found to be unresponsive was brought into the emergency department also noted to be severely anemic with hemoglobin of 4.1. No previous GI bleed, he has not been feeling well and has been using quite a bit of NSAIDs. No anticoagulation. Reportedly had coffee- ground emesis well as hematemesis and dark black stools. Need to consider possible upper GI bleed with patient having hematemesis and black stool especially in the setting of alcohol abuse Current Visit: Yes Status: Acute Code(s): K92.2 - GASTROINTESTINAL HEMORRHAGE, UNSPECIFIED SNOMED Code(s): 61549587 (2) Anemia Current Visit: Yes Status: Acute Code(s): D64.9 - ANEMIA, UNSPECIFIED SNOMED Code(s): 426644476 (3) Hypokalemia Current Visit: Yes Status: Acute Code(s): E87.6 - HYPOKALEMIA SNOMED Code(s): 86921371 (4) Acute kidney injury Current Visit: Yes Status: Acute Code(s): N17.9 - ACUTE KIDNEY FAILURE, UNSPECIFIED SNOMED Code(s): 66864595 (5) Alcohol abuse Current Visit: Yes Status: Acute Code(s): F10.10 - ALCOHOL ABUSE, UNCOMPLICATED SNOMED Code(s): 45331762 (6) Gastric ulcer Narrative/Plan: Patient had second look endoscopy for hematemesis with findings of a 2 cm actively bleeding gastric ulcer status post epinephrine injection and Endo Clip placement Continue with further management per general surgery Current Visit: Yes Status: Acute Code(s): K25.9 - GASTRIC ULCER, UNSP ACUTE OR CHRONIC, W/O HEMOR OR PERF SNOMED Code(s): 154441102 Plan: 1. Continue symptomatic and supportive care 2. Protonix 40 mg twice daily 3. Avoid NSAIDs 4. Avoid anticoagulation 5. Advance to full liquid diet then advance as tolerated 6. Daily CBC, transfuse for hemoglobin less than 7 7. Monitor for alcohol withdrawal symptoms, CIWA protocol 8. Continue with further recommendations from general surgery Thank you for allowing us to participate in the care of the patient, the GI service will sign off, gastroenterology will not be available at the hospital this weekend and through next week. If further evaluation by gastroenterology is required the patient will need transfer as per the primary team's discretion. Dr. Lucila Singh I agree with the dictator's note, documented as a scribe by Jovita Cabrera.
--- NOTE | 2024-07-09 12:24 | P.PN ---
Subjective Progress Note Date: 07/09/24 Principal diagnosis: Acute upper GI bleeding Patient is a 69-year-old white female with past medical history significant for alcoholism, polysubstance abuse. Patient has not followed with a primary care provider in over 4 years. Reportedly was found unresponsive on the ground by her family at home. Family briefly attempted CPR before calling EMS. According to the patient, she was having several days worth of black tarry stools. Apparently, had some abdominal discomfort and was treating this with Motrin [id number] every 4 hours. Denies anticoagulants. She denies any history of GI bleed. On arrival to the ED on 07/06/2024, her hemoglobin was critically low at 4.1 g/dL. Dr. Manjarrez did take the patient for EGD yesterday found a 2 cm deep gastric ulceration, but no active bleeding. This area was biopsied. There was also short segment Anaya esophagus. Patient was admitted to the selective care unit for observation. While on the floor, developed hematemesis. Rapid response team was initiated. Underwent bedside EGD, and is status post epinephrine injection and Endo Clip placement. Patient has received a total of 3 units PRBCs, an additional unit of packed red blood cells was infusing at the moment. She is now being evaluated in the intensive care unit. No further GI bleeding noted by nursing staff. Most recent hemoglobin is up to 6.5 g/dL. Den ies shortness of breath, chest pain, lightheadedness. Blood pressure normotensive. Nontachycardic. Patient is currently tearful. Reportedly drinks 2, 24 ounce beers per day. Serum alcohol level was 121 on arrival. Patient is on the CIWA protocol. Urine toxicology screen positive for opiates, TCAs, benzodiazepines, and marijuana. CBC: WBC count 13, hemoglobin 6.5, hematocrit 19.2, platelets 203. CMP: Sodium 136, potassium 3.9, chloride 111, serum bicarb 24, BUN 27, creatinine 0.96, glucose 132. LFTs unremarkable on arrival. Ammonia less than 9. Troponin 0.013. Normal saline infusing at 125 mL/h. Not on any vasopressors. Patient seen today on 07/09/2024, patient remains in the ICU, on 2 L nasal cannula, patient is a bit restless agitated with known history of alcohol abuse, her CIWA score is 8. No further episodes of GI bleeding, her hemoglobin is stable, patient is hemodynamically stable, not in any pulmonary distress, hence I will arrange for the patient to transfer out of the ICU to the medical surgical floor. In the meantime we need to continue CIWA protocol for her h istory of alcohol abuse. WBC count is 8.8 hemoglobin is 8.1 electrolytes are normal renal profile is normal Objective - Vital Signs Vital signs: Vital Signs Temp 98.9 F 07/09/24 08:00 Pulse 85 07/09/24 09:00 Resp 25 H 07/09/24 09:00 BP 157/91 07/09/24 09:00 Pulse Ox 95 07/09/24 09:00 FiO2 Intake & Output 07/08/24 07/09/24 07/09/24 18:59 06:59 18:59 Intake Total 1150 240 Output Total 1802 1400 400 Balance -652 -1160 -400 Weight 67.3 kg Intake: IV 850 Sodium Chloride 0.9% 1, 850 000 ml @ 125 mls/hr IV . Q8H [facility] Rx#:[id number] Oral 300 240 Output: Gastric Drainage 100 Urine 1700 1400 400 Stool 2 Other: Voiding Method Bedside Commode Bedside Commode Bedside Commode Bedpan # Voids 1 1 # Bowel Movements 1 - Exam GENERAL EXAM: 69-year-old female in no distress HEAD: Normocephalic and atraumatic EYES: Normal reaction of pupils, equal size. NOSE: Clear with pink turbinates. THROAT: No erythema or exudates. NECK: No masses, no JVD. CHEST: No chest wall deformity. LUNGS: Equal air entry with no crackles, wheeze, rhonchi or dullness. On room air. No conversational dyspnea or accessory muscle use.. CVS: S1 and S2 normal with no audible murmur, regular rhythm. No extra heart sounds ABDOMEN: No hepatosplenomegaly, active bowel sounds, no guarding or rigidity. SKIN: No rashes CENTRAL NERVOUS SYSTEM: Alert oriented x 3 no gross focal deficit EXTREMITIES: No clubbing edema or cyanosis - Labs CBC & Chem 7: 07/09/24 06:33 07/09/24 06:33 Labs: Abnormal Lab Results - Last 24 Hours (Table) 07/09/24 07/09/24 Range/Units 06:33 06:33 RBC 2.59 L (3.80-5.40) m/uL Hgb 8.1 L (11.4-16.0) gm/dL Hct 25.2 L (34.0-46.0) % RDW 15.6 H (11.5-15.5) % Lymphocytes # 0.9 L (1.0-4.8) k/uL Sodium 134 L (137-145) mmol/L Chloride 111 H (98-107) mmol/L Carbon Dioxide 20 L (22-30) mmol/L Calcium 7.6 L (8.4-10.2) mg/dL Assessment and Plan Assessment: Impression: Acute upper GI bleeding secondary to antral gastric ulcers status post epinephrine injection and Endo Clip, hemostasis achieved. Patient had a total of 4 units of packed RBCs for this acute blood loss. Acute blood loss anemia, secondary to above Syncopal event Anaya's esophagus Acute alcohol intoxication, reportedly drinks 2, 24 ounce beers per day, serum EtOH level was 121 on arrival History of alcoholism Polysubstance abuse, urine toxicology screen positive for opiates, TCAs, benzodiazepines, and marijuana. History of cocaine/methamphetamine use in the past Remote history of tobacco use Recommendation: Transfer patient out of the ICU today to medical surgical floor Continue CIWA protocol Continue to monitor for any active GI bleeding Continue Protonix twice daily Will continue to follow Time with Patient: Less than 30
--- NOTE | 2024-07-09 12:28 | P.PN ---
Subjective Progress Note Date: 07/09/24 69-year-old female with a PMH of alcohol abuse who was brought into the emergency room by EMS after she was found unresponsive at home by family members. Endorsed noticing some blood in her stools over the past several weeks to her daughters. Earlier this evening, the daughters went to her home to find her unresponsive on her couch with minimal bleeding. One of her daughters started CPR and activated EMS. Upon EMS arrival, the patient was noted to have soiled herself with bloody stools. CT brain was revealed mild to moderate chronic small vessel ischemic changes with chest x-ray unremarkable. EKG revealed sinus rhythm at [address] segment depression in leads V3 to V6 as well as lead II. There was diffuse T wave flattening. Laboratory evaluation was remarkable for hemoglobin 4.1 (previously 12.9 in 2017), potassium 2.5, chloride 93, CO2 38, BUN 45, creatinine 1.62, glucose 146, serum alcohol level 121 with troponin 0.013. Fecal occult blood was positive as per the ED provider. Patient was transfused 2 unit PRBC and started on Protonix IV. GI consulted, underwent EGD which showed 2 cm deep gastric ulceration with a brown pigmented spot but no active bleeding along the incisura angularis. Around 5:30PM, she started to have profuse hematemesis (2L per RN). Patient was transferred to the ICU and transfused another [address] Snigh performed a bedside EGD which showed actively bleeding gastric ulceration measuring 2 cm in size along the incisura angularis status post injection epinephrine followed by Endo Clip placement with good hemostasis. 07/08 Patient was seen and examined. No more hematemesis since EGD. Currently with NG tube. CBC, BMP significant for WBC 11, RBC 2.52, Hg 8.4, Hct 23.8, Plt 140, Cl 114, bicarb 20, BUN 26, Ca 7.1. 07/09 Patient was seen and examined. She reports lower back pain. She reports a cough. Daughter reports multiple falls prior to admission. No more hematemesis. She did require Ativan this morning for CIWA of 8 this morning. CBC and BMP significant for RBC 2.59, Hg 8.1, Hct 25.2, Na 134, Cl 111, bicarb 20, Ca 7.6. General: non toxic, no distress, appears at stated age Derm: warm, dry Head: atraumatic, normocephalic, symmetric, NG tube in place. Eyes: EOMI, no lid lag, anicteric sclera Mouth: no lip lesion, mucus membranes moist Cardiovascular: S1S2 reg, no murmur Lungs: Clear to auscultation bilateral, no rhonchi, no rales, no accessory muscle use Ext: no gross muscle atrophy, no edema, no contractures Neuro: no focal neuro deficits Psych: Alert, oriented, anxious Based on my assessment of this patient, this patient meets a high complexity level of care. GI bleed: Status post 4 unit PRBC. Status post GD which showed actively bleeding gastric ulceration measuring 2 cm in size along the incisura angularis status post injection epinephrine followed by Endo Clip placement with good hemostasis. Protonix 40 mg IV BID. Transfuse if Hg < 7. GI on board. Acute metabolic encephalopathy: Likely related to EtOH withdrawal and severe anemia. Improved. Aspiration and Fall precautions. Alcohol withdrawal: CIWA protocol with ativan PRN. Cough: CXR ordered. Back pain: Thoracic and Lumbar XR ordered. Resolved: HypoMg, HypoK, Acute metabolic encephalopathy, Leukocytosis, prerenal azotemia CODE STATUS: FULL CODE DVT Prophylaxis: SCD GI Prophylaxis: Protonix. Designated medical POA if patient is not able to make medical decisions for themselves: I have reviewed the following solutions consultant notes: GI, Pulmonary I have reviewed the results of the following tests: CBC, BMP I have ordered the following tests: CXR, T+L spine I have discussed the care of this patient with the following independent historian: I have independently interpreted the following test below: Objective - Vital Signs Vital signs: Vital Signs Temp 98.9 F 07/09/24 08:00 Pulse 85 07/09/24 09:00 Resp 25 H 07/09/24 09:00 BP 157/91 07/09/24 09:00 Pulse Ox 95 07/09/24 09:00 FiO2 Intake & Output 07/08/24 07/09/24 07/09/24 18:59 06:59 18:59 Intake Total 1150 240 Output Total 1802 1400 400 Balance -652 -1160 -400 Weight 67.3 kg Intake: IV 850 Sodium Chloride 0.9% 1, 850 000 ml @ 125 mls/hr IV . Q8H [facility] Rx#:[id number] Oral 300 240 Output: Gastric Drainage 100 Urine 1700 1400 400 Stool 2 Other: Voiding Method Bedside Commode Bedside Commode Bedside Commode Bedpan # Voids 1 1 # Bowel Movements 1 - Labs CBC & Chem 7: 07/09/24 06:33 07/09/24 06:33 Labs: Abnormal Lab Results - Last 24 Hours (Table) 07/09/24 07/09/24 Range/Units 06:33 06:33 RBC 2.59 L (3.80-5.40) m/uL Hgb 8.1 L (11.4-16.0) gm/dL Hct 25.2 L (34.0-46.0) % RDW 15.6 H (11.5-15.5) % Lymphocytes # 0.9 L (1.0-4.8) k/uL Sodium 134 L (137-145) mmol/L Chloride 111 H (98-107) mmol/L Carbon Dioxide 20 L (22-30) mmol/L Calcium 7.6 L (8.4-10.2) mg/dL
--- NOTE | 2024-07-09 14:44 | XR ---
EXAMINATION TYPE: XR chest 1V portable DATE OF EXAM: 07/09/2024 COMPARISON: 07/07/2024 HISTORY: Cough TECHNIQUE: Single frontal view of the chest is obtained. FINDINGS: There is moderate cardiomegaly, moderate pulmonary vascular congestion and interstitial ed lamar. There is no pleural effusion or pneumothorax. There is no airspace consolidation. The osseous st ructures are intact IMPRESSION: Development of acute cardiopulmonary disease, most typical of CHF. Clinical correlation recommended [facility], Workstation: LAURIE 07/09/2024 2:41 PM
--- NOTE | 2024-07-09 14:45 | XR ---
Thoracic spine HISTORY: Back pain following fall. COMPARISON: None TECHNIQUE: 3 views of the thoracic spine were obtained. FINDINGS: The thoracic vertebral segments are normal in height and alignment and there is no fracture or sublux ation. There is mild disc space narrowing and spondylosis throughout indicating mild degenerative dis ease. The paraspinal soft tissues are unremarkable. IMPRESSION: 1. No evidence of acute thoracic spine trauma. 2. Mild diffuse degenerative disc disease. [facility], , 07/09/2024 2:43 PM
--- NOTE | 2024-07-09 15:13 | XR ---
EXAMINATION TYPE: XR lumbar spine 3V DATE OF EXAM: 07/09/2024 Comparison: CT 01/28/2013 Clinical History: 69-year-old female back pain, fall Findings: A couple surgical clips projecting at the left upper quadrant. Pelvic phleboliths. Small T12 ribs. Moderate degenerative disc disease throughout leg narrowed and desiccated disc and scattered endplate spondylosis. Degenerative grade 1 anterolisthesis L3-L4 may be slightly increased from 2014. There is moderate to advanced hypertrophic facet arthropathy throughout. Vertebral body heights are preserved. Remaining a lignment is maintained. Impression: 1. Moderate multilevel degenerative disc disease. Moderate to advanced hypertrophic facet arthropathy throughout. 2. A degenerative grade 1 anterolisthesis at L3-L4 may be slightly progressed from 2014. 3. No vertebral compression collapse. [facility], , 07/09/2024 3:11 PM
[2024-07-09] MEDS: LORazepam 1 MG TAB PO PRN (18:39)
[2024-07-09] MEDS: FUROSEMIDE 10 MG/ML 4 ML VIAL IV SCH (22:34)
[2024-07-10] MEDS: LORazepam 0.5 MG TAB PO PRN (02:32)
[2024-07-10] MEDS: guaiFENesin SYRUP 100MG/5ML 200 MG/10 ML CUP PO PRN (06:17)
[2024-07-10 09:53] LABS: HCT 24.7 % (34.0-46.0); HGB 8.2 gm/dL (11.4-16.0); MCH 32.1 pg (25.0-35.0); MCHC 33.3 g/dL (31.0-37.0); MCV 96.2 fL (80.0-100.0); Mean Platelet Volume 10.2; Platelet Count 182 k/uL (150-450); RBC 2.57 m/uL (3.80-5.40); RDW 15.4 % (11.5-15.5); WBC 7.5 k/uL (3.8-10.6)
[2024-07-10 10:11] LABS: African American GFR (CKD) 74 (>60 ml/min/1.73 sqM); Anion Gap 0 mmol/L; Blood Urea Nitrogen 11 mg/dL (7-17); Calcium 7.7 mg/dL (8.4-10.2); Carbon Dioxide 26 mmol/L (22-30); Chloride 108 mmol/L (98-107); Glucose 111 mg/dL (74-99); Non-African American GFR(CKD) 64 (>60 ml/min/1.73 sqM); Potassium 3.5 mmol/L (3.5-5.1); Sodium 134 mmol/L (137-145)
--- NOTE | 2024-07-10 12:32 | P.PN ---
Subjective Progress Note Date: 07/10/24 Patient seen and examined at bedside. No acute events. Denies any further blood or black stool. Objective - Vital Signs Vital signs: Vital Signs Temp 99.2 F 07/10/24 06:59 Pulse 76 07/10/24 06:59 Resp 14 07/10/24 06:59 BP 128/72 07/10/24 06:59 Pulse Ox 97 07/10/24 06:59 FiO2 Intake & Output 07/09/24 07/10/24 07/10/24 18:59 06:59 18:59 Intake Total 250 Output Total 400 Balance -150 Intake: Oral 250 Output: Urine 400 Other: Voiding Method Bedside Commode Bedside Commode Bedpan Bedpan # Voids 1 1 - Constitutional General appearance: Present: cooperative, no acute distress - Gastrointestinal Gastrointestinal Comment(s): Soft, nontender, nondistended, no rebound, no guarding - Labs CBC & Chem 7: 07/10/24 09:42 07/10/24 09:42 Labs: Abnormal Lab Results - Last 24 Hours (Table) 07/06/24 07/10/24 07/10/24 Range/Units 00:50 09:42 09:42 RBC 2.57 L (3.80-5.40) m/uL Hgb 8.2 L (11.4-16.0) gm/dL Hct 24.7 L (34.0-46.0) % Sodium 134 L (137-145) mmol/L Chloride 108 H (98-107) mmol/L Glucose 111 H (74-99) mg/dL Calcium 7.7 L (8.4-10.2) mg/dL Crossmatch See Detail Assessment and Plan Plan: 69-year-old female with bleed secondary to gastric ulcer. Patient appears to have no further active bleeding. Hemoglobin 8.2. Continue to advance diet as tolerated. Continue Protonix.
--- NOTE | 2024-07-10 12:40 | P.PN ---
Subjective Progress Note Date: 07/10/24 Patient is a 69-year-old white female with past medical history significant for alcoholism, polysubstance abuse. Patient has not followed with a primary care provider in over 4 years. Reportedly was found unresponsive on the ground by her family at home. Family briefly attempted CPR before calling EMS. According to the patient, she was having several days worth of black tarry stools. Apparently, had some abdominal discomfort and was treating this with Motrin [id number] every 4 hours. Denies anticoagulants. She denies any history of GI bleed. On arrival to the ED on 07/06/2024, her hemoglobin was critically low at 4.1 g/dL. Dr. Manjarrez did take the patient for EGD yesterday found a 2 cm d eep gastric ulceration, but no active bleeding. This area was biopsied. There was also short segment Anaya esophagus. Patient was admitted to the selective care unit for observation. While on the floor, developed hematemesis. Rapid response team was initiated. Underwent bedside EGD, and is status post epinephrine injection and Endo Clip placement. Patient has received a total of 3 units PRBCs, an additional unit of packed red blood cells was infusing at the moment. She is now being evaluated in the intensive care unit. No further GI bleeding noted by nursing staff. Most recent hemoglobin is up to 6.5 g/dL. Denies shortness of breath, chest pain, lightheadedness. Blood pressure norm otensive. Nontachycardic. Patient is currently tearful. Reportedly drinks 2, 24 ounce beers per day. Serum alcohol level was 121 on arrival. Patient is on the CIWA protocol. Urine toxicology screen positive for opiates, TCAs, benzodiazepines, and marijuana. CBC: WBC count 13, hemoglobin 6.5, hematocrit 19.2, platelets 203. CMP: Sodium 136, potassium 3.9, chloride 111, serum bicarb 24, BUN 27, creatinine 0.96, glucose 132. LFTs unremarkable on arrival. Ammonia less than 9. Troponin 0.013. Normal saline infusing at 125 mL/h. Not on any vasopressors. Patient seen today on 07/09/2024, patient remains in the ICU, on 2 L nasal cannula, patient is a bit restless agitated with known history of alcohol abuse, her CIWA score is 8. No further episodes of GI bleeding, her hemoglobin is st able, patient is hemodynamically stable, not in any pulmonary distress, hence I will arrange for the patient to transfer out of the ICU to the medical surgical floor. In the meantime we need to continue CIWA protocol for her history of alcohol abuse. WBC count is 8.8 hemoglobin is 8.1 electrolytes are normal renal profile is normal The patient is seen today July 10, 2024 in follow-up on the regular medical floor. She was transferred out of the ICU yesterday. She is awake and alert in no acute distress. She is maintaining O2 saturations in the 90s on 2 L/min per nasal cannula. She is status post 4 units of packed red blood cells this admission. Current hemoglobin 8.2. White count 7.5. Platelets 182. Sodium 134. Potassium 3.5. Bicarb 26. BUN 11. Creatinine 0.92. Glucose 111. Chest x-ray reveals moderate cardiomegaly with pulmonary vascular congestion and interstitial edema. She has been on Lasix 40 mg IV every 12 hours. She is in a negative balance currently. She remains on the CIWA protocol. Objective - Vital Signs Vital signs: Vital Signs Temp 99.2 F 07/10/24 06:59 Pulse 76 07/10/24 06:59 Resp 14 07/10/24 06:59 BP 128/72 07/10/24 06:59 Pulse Ox 97 07/10/24 06:59 FiO2 Intake & Output 07/09/24 07/10/24 07/10/24 18:59 06:59 18:59 Intake Total 250 Output Total 400 Balance -150 Intake: Oral 250 Output: Urine 400 Other: Voiding Method Bedside Commode Bedside Commode Bedpan Bedpan # Voids 1 1 - Exam GENERAL EXAM: Alert, 69-year-old female, on 2 L nasal cannula, comfortable in no apparent distress. HEAD: Normocephalic. EYES: Normal reaction of pupils, equal size. NOSE: Clear with pink turbinates. THROAT: No erythema or exudates. NECK: No masses, no JVD. CHEST: No chest wall deformity. LUNGS: Equal air entry with crackles in the bilateral bases. CVS: S1 and S2 normal with no audible murmur, regular rhythm. ABDOMEN: No hepatosplenomegaly, normal bowel sounds, no guarding or rigidity. SPINE: No scoliosis or deformity SKIN: No rashes CENTRAL NERVOUS SYSTEM: No focal deficits, tone is normal in all 4 extremities. EXTREMITIES: There is no peripheral edema. No clubbing, no cyanosis. Peripheral pulses are intact. - Labs CBC & Chem 7: 07/10/24 09:42 07/10/24 09:42 Labs: Abnormal Lab Results - Last 24 Hours (Table) 07/06/24 07/10/24 07/10/24 Range/Units 00:50 09:42 09:42 RBC 2.57 L (3.80-5.40) m/uL Hgb 8.2 L (11.4-16.0) gm/dL Hct 24.7 L (34.0-46.0) % Sodium 134 L (137-145) mmol/L Chloride 108 H (98-107) mmol/L Glucose 111 H (74-99) mg/dL Calcium 7.7 L (8.4-10.2) mg/dL Crossmatch See Detail Assessment and Plan Assessment: Acute upper GI bleeding secondary to antral gastric ulcers status post epinephrine injection and Endo Clip, hemostasis achieved. Had a total of 4 units of packed RBCs for this acute blood loss Acute blood loss anemia, secondary to above Syncopal event Anaya's esophagus Acute alcohol intoxication, reportedly drinks 2, 24 ounce beers per day, serum EtOH level was 121 on arrival History of alcoholism Polysubstance abuse, urine toxicology screen positive for opiates, TCAs, benzodiazepines, and marijuana. History of cocaine/methamphetamine use in the past Remote history of tobacco use Plan: The patient was seen and evaluated Labs and medications reviewed No active bleeding Hemoglobin stable Continued on Protonix Continued on the CIWA protocol Titrate down the FiO2 as tolerated Plan is for possible subacute rehab at discharge I have personally seen and examined the patient, performed the documentation and the assessment and plan as written. Number of minutes spent on the visit: 10 Dictation was produced using [employer] dictation software. Please excuse any grammatical, word or spelling errors.
--- NOTE | 2024-07-10 12:57 | P.PN ---
Subjective Progress Note Date: 07/10/24 69-year-old female with a PMH of alcohol abuse who was brought into the emergency room by EMS after she was found unresponsive at home by family members. Endorsed noticing some blood in her stools over the past several weeks to her daughters. Earlier this evening, the daughters went to her home to find her unresponsive on her couch with minimal bleeding. One of her daughters started CPR and activated EMS. Upon EMS arrival, the patient was noted to have soiled herself with bloody stools. CT brain was revealed mild to moderate chronic small vessel ischemic changes with chest x-ray unremarkable. EKG revealed sinus rhythm at [address] segment depression in leads V3 to V6 as well as lead II. There was diffuse T wave flattening. Laboratory evaluation was remarkable for hemoglobin 4.1 (previously 12.9 in 2017), potassium 2.5, chloride 93, CO2 38, BUN 45, creatinine 1.62, glucose 146, serum alcohol level 121 with troponin 0.013. Fecal occult blood was positive as per the ED provider. Patient was transfused 2 unit PRBC and started on Protonix IV. GI consulted, underwent EGD which showed 2 cm deep gastric ulceration with a brown pigmented spot but no active bleeding along the incisura angularis. Around 5:30PM, she started to have profuse hematemesis (2L per RN). Patient was transferred to the ICU and transfused another [address] Singh performed a bedside EGD which showed actively bleeding gastric ulceration measuring 2 cm in size along the incisura angularis status post injection epinephrine followed by Endo Clip placement with good hemostasis. NG tube was inserted and discontinued. No further episodes of hematemesis. She did report some shortness of breath and cou gh, CXR showed volume overload for which she was started on Lasix. 07/08 Patient was seen and examined. No more hematemesis since EGD. Currently with NG tube. CBC, BMP significant for WBC 11, RBC 2.52, Hg 8.4, Hct 23.8, Plt 140, Cl 114, bicarb 20, BUN 26, Ca 7.1. 07/09 Patient was seen and examined. She reports lower back pain. She reports a cough. Daughter reports multiple falls prior to admission. No more hematemesis. She did require Ativan this morning for CIWA of 8 this morning. CBC and BMP significant for RBC 2.59, Hg 8.1, Hct 25.2, Na 134, Cl 111, bicarb 20, Ca 7.6. 07/10 Patient was seen and examined. No more hematemesis. Still with cough and shortness of breath. CXR done 07/09 showed pulmonary vascular congestion. Patient currently on Lasix 40 mg IV BID. Thoracic and Lumbar spine XR shows no acute pathology. CBC and BMP significant for RBC 2.57, Hg 8.2, Hct 24.7, Na 134, Cl 108, glu 111, Ca 7.7. General: non toxic, no distress, appears at stated age Derm: warm, dry Head: atraumatic, normocephalic, symmetric Eyes: EOMI, no lid lag, anicteric sclera Mouth: no lip lesion, mucus membranes moist Cardiovascular: S1S2 reg, no murmur Lungs: Clear to auscultation bilateral, no rhonchi, no rales, no accessory muscle use Ext: no gross muscle atrophy, no edema, no contractures Neuro: no focal neuro deficits Psych: Alert, oriented, anxious Based on my assessment of this patient, this patient meets a high complexity level of care. Pulmonary vascular congestion: Likely underlying CHF with volume overload from multiple transfusions. Continue Lasix 40 mg IV BID. Strict intake and outtake. Daily weights. Obtain Echo if possible. Monitor renal function and electrolytes. GI bleed: Status post 4 unit PRBC. Status post GD which showed actively bleeding gastric ulceration measuring 2 cm in size along the incisura angularis status post injection epinephrine followed by Endo Clip placement with good hemostasis. Protonix 40 mg IV BID. Transfuse if Hg < 7. GI on board. Acute metabolic encephalopathy: Likely related to EtOH withdrawal and severe anemia. Improved. Aspiration and Fall precautions. Alcohol withdrawal: CIWA protocol with ativan PRN. Back pain: Thoracic and Lumbar XR as above. PT and OT on board. Add [place] 10 Q6H scheduled. Morphine 2 mg IV Q4H PRN. Resolved: HypoMg, HypoK, Acute metabolic encephalopathy, Leukocytosis, prerenal azotemia CODE STATUS: FULL CODE DVT Prophylaxis: SCD GI Prophylaxis: Protonix. Designated medical POA if patient is not able to make medical decisions for themselves: I have reviewed the following industrial methods consultant notes: Surgery, Pulmonary note I have reviewed the results of the following tests: T+ L spine, CBC, BMP I have ordered the following tests: BMP in the AM. I have discussed the care of this patient with the following independent historian: I have independently interpreted the following test below: CXR Objective - Vital Signs Vital signs: Vital Signs Temp 99.2 F 07/10/24 06:59 Pulse 76 07/10/24 06:59 Resp 14 07/10/24 06:59 BP 128/72 07/10/24 06:59 Pulse Ox 97 07/10/24 06:59 FiO2 Intake & Output 07/09/24 07/10/24 07/10/24 18:59 06:59 18:59 Intake Total 250 Output Total 400 Balance -150 Intake: Oral 250 Output: Urine 400 Other: Voiding Method Bedside Commode Bedside Commode Bedpan Bedpan # Voids 1 - Labs CBC & Chem 7: 07/10/24 09:42 07/10/24 09:42 Labs: Abnormal Lab Results - Last 24 Hours (Table) 07/06/24 Range/Units 00:50 Crossmatch See Detail
[2024-07-10] MEDS: HYDROcodone/APAP 10-325MG 1 EACH TAB PO SCH (14:02)
[2024-07-10] MEDS ORDERED: ZINC OXIDE PASTE (Z-GUARD) 1 APPLIC TOPICAL PRN (16:24)
[2024-07-10] MEDS: QUEtiapine 25 MG TAB PO SCH (20:52)
[2024-07-11 03:28] LABS: HCT 24.3 % (34.0-46.0); HGB 8.1 gm/dL (11.4-16.0); MCH 31.8 pg (25.0-35.0); MCHC 33.5 g/dL (31.0-37.0); Platelet Count 203 k/uL (150-450); Poikilocytosis Slight; RBC 2.55 m/uL (3.80-5.40); RDW 15.6 % (11.5-15.5); WBC 6.6 k/uL (3.8-10.6)
[2024-07-11 03:39] LABS: African American GFR (CKD) 69 (>60 ml/min/1.73 sqM); Anion Gap 3 mmol/L; Blood Urea Nitrogen 13 mg/dL (7-17); Calcium 7.7 mg/dL (8.4-10.2); Carbon Dioxide 25 mmol/L (22-30); Chloride 106 mmol/L (98-107); Glucose 100 mg/dL (74-99); Non-African American GFR(CKD) 60 (>60 ml/min/1.73 sqM); Potassium 3.6 mmol/L (3.5-5.1); Sodium 134 mmol/L (137-145)
--- NOTE | 2024-07-11 09:15 | P.PN ---
Subjective Progress Note Date: 07/11/24 Patient seen and examined at bedside. No acute events. Denies any further bleeding in her bowel function. Objective - Vital Signs Vital signs: Vital Signs Temp 98.4 F 07/11/24 06:58 Pulse 78 07/11/24 06:58 Resp 14 07/11/24 06:58 BP 123/76 07/11/24 06:58 Pulse Ox 99 07/11/24 06:58 FiO2 Intake & Output 07/10/24 07/11/24 07/11/24 18:59 06:59 18:59 Intake Total 200 Output Total 900 Balance -700 Weight 72 kg Intake: Oral 200 Output: Urine 900 Other: Voiding Method Bedpan Bedpan # Voids 1 - Constitutional General appearance: Present: cooperative - Respiratory Details: No difficulty with respiration - Gastrointestinal Gastrointestinal Comment(s): Soft, nontender, nondistended, no rebound, no guarding - Labs CBC & Chem 7: 07/11/24 02:56 07/11/24 02:56 Labs: Abnormal Lab Results - Last 24 Hours (Table) 07/10/24 07/10/24 07/11/24 Range/Units 09:42 09:42 02:56 RBC 2.57 L 2.55 L (3.80-5.40) m/uL Hgb 8.2 L 8.1 L (11.4-16.0) gm/dL Hct 24.7 L 24.3 L (34.0-46.0) % RDW 15.6 H (11.5-15.5) % Sodium 134 L (137-145) mmol/L Chloride 108 H (98-107) mmol/L Glucose 111 H (74-99) mg/dL Calcium 7.7 L (8.4-10.2) mg/dL 07/11/24 Range/Units 02:56 RBC (3.80-5.40) m/uL Hgb (11.4-16.0) gm/dL Hct (34.0-46.0) % RDW (11.5-15.5) % Sodium 134 L (137-145) mmol/L Chloride (98-107) mmol/L Glucose 100 H (74-99) mg/dL Calcium 7.7 L (8.4-10.2) mg/dL Assessment and Plan Plan: 69-year-old female with bleed secondary to gastric ulcer. Patient appears to have no further active bleeding. Hemoglobin 8.1 and has been stable in the eights for the past 72 hours. Tolerating diet. Continue Protonix.
[2024-07-11] MEDS: PIPERACILLIN-TAZOBACTAM 3.375 GM in SODIUM CHLORIDE 0.9% 100 ML IVPB SCH (11:07)
--- NOTE | 2024-07-11 12:42 | P.PN ---
Subjective Progress Note Date: 07/11/24 Patient is a 69-year-old white female with past medical history significant for alcoholism, polysubstance abuse. Patient has not followed with a primary care provider in over 4 years. Reportedly was found unresponsive on the ground by her family at home. Family briefly attempted CPR before calling EMS. According to the patient, she was having several days worth of black tarry stools. Apparently, had some abdominal discomfort and was treating this with Motrin [id number] every 4 hours. Denies anticoagulants. She denies any history of GI bleed. On arrival to the ED on 07/06/2024, her hemoglobin was critically low at 4.1 g/dL. Dr. Manjarrez did take the patient for EGD yesterday found a 2 cm d eep gastric ulceration, but no active bleeding. This area was biopsied. There was also short segment Anaya esophagus. Patient was admitted to the selective care unit for observation. While on the floor, developed hematemesis. Rapid response team was initiated. Underwent bedside EGD, and is status post epinephrine injection and Endo Clip placement. Patient has received a total of 3 units PRBCs, an additional unit of packed red blood cells was infusing at the moment. She is now being evaluated in the intensive care unit. No further GI bleeding noted by nursing staff. Most recent hemoglobin is up to 6.5 g/dL. Denies shortness of breath, chest pain, lightheadedness. Blood pressure norm otensive. Nontachycardic. Patient is currently tearful. Reportedly drinks 2, 24 ounce beers per day. Serum alcohol level was 121 on arrival. Patient is on the CIWA protocol. Urine toxicology screen positive for opiates, TCAs, benzodiazepines, and marijuana. CBC: WBC count 13, hemoglobin 6.5, hematocrit 19.2, platelets 203. CMP: Sodium 136, potassium 3.9, chloride 111, serum bicarb 24, BUN 27, creatinine 0.96, glucose 132. LFTs unremarkable on arrival. Ammonia less than 9. Troponin 0.013. Normal saline infusing at 125 mL/h. Not on any vasopressors. Patient seen today on 07/09/2024, patient remains in the ICU, on 2 L nasal cannula, patient is a bit restless agitated with known history of alcohol abuse, her CIWA score is 8. No further episodes of GI bleeding, her hemoglobin is st able, patient is hemodynamically stable, not in any pulmonary distress, hence I will arrange for the patient to transfer out of the ICU to the medical surgical floor. In the meantime we need to continue CIWA protocol for her history of alcohol abuse. WBC count is 8.8 hemoglobin is 8.1 electrolytes are normal renal profile is normal The patient is seen today July 10, 2024 in follow-up on the regular medical floor. She was transferred out of the ICU yesterday. She is awake and alert in no acute distress. She is maintaining O2 saturations in the 90s on 2 L/min per nasal cannula. She is status post 4 units of packed red blood cells this admission. Current hemoglobin 8.2. White count 7.5. Platelets 182. Sodium 134. Potassium 3.5. Bicarb 26. BUN 11. Creatinine 0.92. Glucose 111. Chest x-ray reveals moderate cardiomegaly with pulmonary vascular congestion and interstitial edema. She has been on Lasix 40 mg IV every 12 hours. She is in a negative balance currently. She remains on the CIWA protocol. The patient is seen today July 11, 2024 in follow-up on the regular medical floor. She is currently sitting up in bed. Awake and alert in no acute distress. He is having increased cough and congestion. She is a former tobacco smoker. Admits to smoking marijuana recently. No further GI bleeding noted. Continued on IV Protonix. She remains on IV diuretics. Remains on the CIWA protocol. Currently in a negative balance. Objective - Vital Signs Vital signs: Vital Signs Temp 98.4 F 07/11/24 06:58 Pulse 78 07/11/24 06:58 Resp 14 07/11/24 06:58 BP 123/76 07/11/24 06:58 Pulse Ox 99 07/11/24 06:58 FiO2 Intake & Output 07/10/24 07/11/24 07/11/24 18:59 06:59 18:59 Intake Total 200 480 Output Total 900 Balance -700 480 Weight 72 kg Intake: Oral 200 480 Output: Urine 900 Other: Voiding Method Bedpan Bedpan # Voids 1 2 - Exam GENERAL EXAM: Alert, 69-year-old female, sitting up in bed, on 2 L nasal cannula, comfortable in no apparent distress. HEAD: Normocephalic. EYES: Normal reaction of pupils, equal size. NOSE: Clear with pink turbinates. THROAT: No erythema or exudates. NECK: No masses, no JVD. CHEST: No chest wall deformity. LUNGS: Equal air entry with crackles in the bilateral bases. CVS: S1 and S2 normal with no audible murmur, regular rhythm. ABDOMEN: No hepatosplenomegaly, normal bowel sounds, no guarding or rigidity. SPINE: No scoliosis or deformity SKIN: No rashes CENTRAL NERVOUS SYSTEM: No focal deficits, tone is normal in all 4 extremities. EXTREMITIES: There is no peripheral edema. No clubbing, no cyanosis. Peripheral pulses are intact. - Labs CBC & Chem 7: 07/11/24 02:56 07/11/24 02:56 Labs: Abnormal Lab Results - Last 24 Hours (Table) 07/11/24 07/11/24 Range/Units 02:56 02:56 RBC 2.55 L (3.80-5.40) m/uL Hgb 8.1 L (11.4-16.0) gm/dL Hct 24.3 L (34.0-46.0) % RDW 15.6 H (11.5-15.5) % Sodium 134 L (137-145) mmol/L Glucose 100 H (74-99) mg/dL Calcium 7.7 L (8.4-10.2) mg/dL Assessment and Plan Assessment: Acute upper GI bleeding secondary to antral gastric ulcers status post epinephrine injection and Endo Clip, hemostasis achieved. Had a total of 4 units of packed RBCs for this acute blood loss Acute blood loss anemia, secondary to above Syncopal event Anaya's esophagus Acute alcohol intoxication, reportedly drinks 2, 24 ounce beers per day, serum EtOH level was 121 on arrival History of alcoholism Polysubstance abuse, urine toxicology screen positive for opiates, TCAs, benzodiazepines, and marijuana. History of cocaine/methamphetamine use in the past Remote history of tobacco use Plan: The patient was seen and evaluated Labs and medications reviewed Hemoglobin stable Continued on Protonix Continued on the CIWA protocol Titrate down the FiO2 as tolerated Echocardiogram pending Continued on IV diuretics Follow-up chest x-ray in a.m. Check a procalcitonin, proBNP We will continue to follow I have personally seen and examined the patient, performed the documentation and the assessment and plan as written. Number of minutes spent on the visit: 10 Dictation was produced using Phizzleation software. Please excuse any grammatical, word or spelling errors.
--- NOTE | 2024-07-11 12:48 | P.PN ---
Subjective Progress Note Date: 07/11/24 69-year-old female with a PMH of alcohol abuse who was brought into the emergency room by EMS after she was found unresponsive at home by family members. Endorsed noticing some blood in her stools over the past several weeks to her daughters. Earlier this evening, the daughters went to her home to find her unresponsive on her couch with minimal bleeding. One of her daughters started CPR and activated EMS. Upon EMS arrival, the patient was noted to have soiled herself with bloody stools. CT brain was revealed mild to moderate chronic small vessel ischemic changes with chest x-ray unremarkable. EKG revealed sinus rhythm at [address] segment depression in leads V3 to V6 as well as lead II. There was diffuse T wave flattening. Laboratory evaluation was remarkable for hemoglobin 4.1 (previously 12.9 in 2017), potassium 2.5, chloride 93, CO2 38, BUN 45, creatinine 1.62, glucose 146, serum alcohol level 121 with troponin 0.013. Fecal occult blood was positive as per the ED provider. Patient was transfused 2 unit PRBC and started on Protonix IV. GI consulted, underwent EGD which showed 2 cm deep gastric ulceration with a brown pigmented spot but no active bleeding along the incisura angularis. Around 5:30PM, she started to have profuse hematemesis (2L per RN). Patient was transferred to the ICU and transfused another [address] Singh performed a bedside EGD which showed actively bleeding gastric ulceration measuring 2 cm in size along the incisura angularis status post injection epinephrine followed by Endo Clip placement with good hemostasis. NG tube was inserted and discontinued. No further episodes of hematemesis. She did report some shortness of breath and cou gh, CXR showed volume overload for which she was started on Lasix. 07/08 Patient was seen and examined. No more hematemesis since EGD. Currently with NG tube. CBC, BMP significant for WBC 11, RBC 2.52, Hg 8.4, Hct 23.8, Plt 140, Cl 114, bicarb 20, BUN 26, Ca 7.1. 07/09 Patient was seen and examined. She reports lower back pain. She reports a cough. Daughter reports multiple falls prior to admission. No more hematemesis. She did require Ativan this morning for CIWA of 8 this morning. CBC and BMP significant for RBC 2.59, Hg 8.1, Hct 25.2, Na 134, Cl 111, bicarb 20, Ca 7.6. 07/10 Patient was seen and examined. No more hematemesis. Still with cough and shortness of breath. CXR done 07/09 showed pulmonary vascular congestion. Patient currently on Lasix 40 mg IV BID. Thoracic and Lumbar spine XR shows no acute pathology. CBC and BMP significant for RBC 2.57, Hg 8.2, Hct 24.7, Na 134, Cl 108, glu 111, Ca 7.7. 07/11 Patient was seen and examined. Diuresing well on Lasix 40 mg IV BID. Pain better. Cough better. CBC and BMP significant for RBC 2.55, Hg 8.1, Hct 24.3, Na 134, glu 100, Ca 7.7. General: non toxic, no distress, appears at stated age Derm: warm, dry Head: atraumatic, normocephalic, symmetric Eyes: EOMI, no lid lag, anicteric sclera Mouth: no lip lesion, mucus membranes moist Cardiovascular: S1S2 reg, no murmur Lungs: Clear to auscultation bilateral, no rhonchi, no rales, no accessory muscle use Ext: no gross muscle atrophy, no edema, no contractures Neuro: no focal neuro deficits Psych: Alert, oriented, anxious Based on my assessment of this patient, this patient meets a high complexity level of care. Pulmonary vascular congestion: Likely underlying CHF with volume overload from multiple transfusions. Decrease Lasix to 40 mg IV QD. Strict intake and outtake. Daily weights. Obtain Echo if possible. Monitor renal function and electrolytes. GI bleed: Status post 4 unit PRBC. Status post GD which showed actively bleeding gastric ulceration measuring 2 cm in size along the incisura angularis status post injection epinephrine followed by Endo Clip placement with good hemostasis. Protonix 40 mg IV BID. Transfuse if Hg < 7. GI on board. Acute metabolic encephalopathy: Likely related to EtOH withdrawal and severe anemia. Improved. Aspiration and Fall precautions. Alcohol withdrawal: CIWA protocol with ativan PRN. Back pain: Thoracic and Lumbar XR as above. PT and OT on board. [place] 10 Q6H scheduled. Morphine 2 mg IV Q4H PRN. Resolved: HypoMg, HypoK, Acute metabolic encephalopathy, Leukocytosis, prerenal azotemia Doing well. Lasix for one more day. PT and OT evaluation tomorrow as patient appears debilitated. Plans for discharge home versus SNF on Friday. CODE STATUS: FULL CODE DVT Prophylaxis: SCD GI Prophylaxis: Protonix. Designated medical POA if patient is not able to make medical decisions for themselves: I have reviewed the following talent development consultant notes: Surgery, Pulmonary note I have reviewed the results of the following tests: CBC, BMP I have ordered the following tests: BMP in the AM. I have discussed the care of this patient with the following independent historian: I have independently interpreted the following test below: Objective - Vital Signs Vital signs: Vital Signs Temp 98.4 F 07/11/24 06:58 Pulse 78 07/11/24 06:58 Resp 14 07/11/24 06:58 BP 123/76 07/11/24 06:58 Pulse Ox 99 07/11/24 06:58 FiO2 Intake & Output 07/10/24 07/11/24 07/11/24 18:59 06:59 18:59 Intake Total 200 Output Total 900 Balance -700 Weight 72 kg Intake: Oral 200 Output: Urine 900 Other: Voiding Method Bedpan Bedpan # Voids 1 - Labs CBC & Chem 7: 07/11/24 02:56 07/11/24 02:56 Labs: Abnormal Lab Results - Last 24 Hours (Table) 07/10/24 07/10/24 07/11/24 Range/Units 09:42 09:42 02:56 RBC 2.57 L 2.55 L (3.80-5.40) m/uL Hgb 8.2 L 8.1 L (11.4-16.0) gm/dL Hct 24.7 L 24.3 L (34.0-46.0) % RDW 15.6 H (11.5-15.5) % Sodium 134 L (137-145) mmol/L Chloride 108 H (98-107) mmol/L Glucose 111 H (74-99) mg/dL Calcium 7.7 L (8.4-10.2) mg/dL 07/11/24 Range/Units 02:56 RBC (3.80-5.40) m/uL Hgb (11.4-16.0) gm/dL Hct (34.0-46.0) % RDW (11.5-15.5) % Sodium 134 L (137-145) mmol/L Chloride (98-107) mmol/L Glucose 100 H (74-99) mg/dL Calcium 7.7 L (8.4-10.2) mg/dL
[2024-07-12] MEDS: FUROSEMIDE 10 MG/ML 4 ML VIAL IV SCH (08:08)
--- NOTE | 2024-07-12 08:27 | XR ---
EXAMINATION TYPE: XR chest 1V portable DATE OF EXAM: 07/12/2024 7:09 AM COMPARISON: Chest radiographs from CLINICAL INDICATION: Female, 69 years old with history of CHF; [facility] TECHNIQUE: XR chest 1V portable Frontal view of the chest. FINDINGS: Lungs/Pleura: There is no evidence of pleural effusion, focal consolidation, or pneumothorax. Pulmonary vascularity: Pulmonary vascular congestion. Heart/mediastinum: Cardiomediastinal silhouette is enlarged. Musculoskeletal: No acute osseous pathology. The left rib injury. Other findings: None IMPRESSION: Similar Cardiomegaly and mild pulmonary vascular congestion. [facility], , 07/12/2024 8:25 AM
--- NOTE | 2024-07-12 11:31 | CA ---
Transthoracic Echo Report Name: Angelina Nelson Age: 69 Gender: F : 1955 Exam Date: 07/12/2024 10:10 Exam Location: [facility] Ht (in): 65 Wt (lb): 148 Ordering Physician: Deisi Kunz MD Attending/Referring Phys: Drill Bit Sharpener Smita Mast RDCS Procedure CPT: Indications: chf Cardiac Hx: Technical Quality: Fair Contrast 1: Total Dose (mL): Contrast 2: Total Dose (mL): MEASUREMENTS (Male / Female) Normal Values 2D ECHO LV Diastolic Diameter PLAX 4.1 cm 4.2 - 5.9 / 3.9 - 5.3 cm LV Systolic Diameter PLAX 3.3 cm IVS Diastolic Thickness 1.2 cm 0.6 - 1.0 / 0.6 - 0.9 cm LVPW Diastolic Thickness 1.2 cm 0.6 - 1.0 / 0.6 - 0.9 cm LV Relative Wall Thickness 0.6 RV Internal Dim ED PLAX 2.0 cm LA Systolic Diameter LX 2.9 cm 3.0 - 4.0 / 2.7 - 3.8 cm LV Diastolic Volume MOD BP 32.6 cm??? 67 - 155 / 56 - 104 cm??? LV Systolic Volume MOD BP 12.3 cm??? 22 - 58 / 19 - 49 cm??? LV Ejection Fraction MOD BP 62.3 % >= 55 % LV Cardiac Index MOD BP 747.1 cm???/min???m??? LV Diastolic Volume MOD 4C 26.8 cm??? LV Systolic Volume MOD 4C 10.4 cm??? LV Ejection Fraction MOD 4C 61.1 % LV Cardiac Index MOD 4C 602.6 cm???/min???m??? LV Diastolic Length 4C 5.7 cm LV Systolic Length 4C 4.6 cm LV Diastolic Volume MOD 2C 37.6 cm??? LV Systolic Volume MOD 2C 13.4 cm??? LV Ejection Fraction MOD 2C 64.4 % LV Cardiac Index MOD 2C 891.4 cm???/min???m??? LV Diastolic Length 2C 6.1 cm LV Systolic Length 2C 4.9 cm LA Volume 82.1 cm??? 18 - 58 / 22 - 52 cm??? LA Volume Index 46.5 cm???/m??? 16 - 28 cm???/m??? M-MODE Aortic Root Diameter MM 3.2 cm LA Systolic Diameter MM 2.9 cm LA Ao Ratio MM 0.9 AV Cusp Separation MM 1.7 cm DOPPLER AV Peak Velocity 174.5 cm/s AV Peak Gradient 12.2 mmHg AV Mean Velocity 116.5 cm/s AV Mean Gradient 6.3 mmHg AV Velocity Time Integral 39.8 cm LVOT Peak Velocity 129.3 cm/s LVOT Peak Gradient 6.7 mmHg LVOT Velocity Time Integral 32.1 cm MV Area PHT 2.9 cm??? Mitral E Point Velocity 92.3 cm/s Mitral A Point Velocity 120.8 cm/s Mitral E to A Ratio 0.8 MV Deceleration Time 260.2 ms TR Peak Velocity 227.1 cm/s TR Peak Gradient 20.6 mmHg FINDINGS Left Ventricle Left ventricular ejection fraction is estimated at 55-60%. Mildly increased septal wall thickness. Mildly increased posterior wall thickness. Normal left ventricular systolic function with no obvious regional wall motion abnormalities. Right Ventricle Normal right ventricular size and function. Right ventricular systolic pressure within normal limits. Right Atrium Mild right atrial dilatation. Left Atrium Severely increased left atrial volume. Mildly increased left atrial area. Mitral Valve Structurally normal mitral valve. Mild mitral annular calcification. Mild mitral regurgitation. Aortic Valve Trileaflet aortic valve. No aortic regurgitation. No aortic stenosis. Tricuspid Valve Structurally normal tricuspid valve. Mild tricuspid regurgitation. No tricuspid stenosis. Pulmonic Valve Structurally normal pulmonic valve. Trace pulmonic regurgitation. No pulmonic stenosis. Pericardium No pericardial or pleural effusion. Aorta Normal size aortic root and proximal ascending aorta. CONCLUSIONS Normal LV function Mild mitral regurgitation Previewed by: Dr. Hayes Singh MD (Electronically Signed) Final Date: 12 July 2024 11:30
--- NOTE | 2024-07-12 12:53 | P.PN ---
Subjective Progress Note Date: 07/12/24 SURGICAL PROGRESS NOTE CHIEF COMPLAINT: 2 cm bleeding gastric ulcer HISTORY OF PRESENT ILLNESS: Patient is currently on regular floor. She does report some epigastric discomfort. She is on a regular diet. She has had no further reports of blood in the stool. Denies any nausea or vomiting. Afebrile. Hemoglobin stable at 8.1 PHYSICAL EXAM: VITAL SIGNS: Reviewed. GENERAL: Well-developed in no acute distress. ABDOMEN: Soft. Nondistended. NEUROLOGIC: Alert and oriented. Cranial nerves II through XII grossly intact. ASSESSMENT: 1. Acute GI bleed with a 2 cm bleeding gastric ulcer status post epinephrine injection and clip by GI service 2. Acute blood loss anemia due to bleeding gastric ulcer 3. Daily alcohol use 4. Polysubstance abuse PLAN: -continue to follow -Continue Protonix -Hemoglobin has remains stable. No further signs of bleeding Physician Wwe Wrestler note has been reviewed by physician. Signing provider agrees with the documented findings, assessment, and plan of care. Attestation Patient seen and examined at bedside. No acute events. Tolerating regular t. Denying any blood in her stool. Hemoglobin stable. Continue Protonix. Surgically stable for discharge. Yony Rhoades DO Objective - Vital Signs Vital signs: Vital Signs Temp 98.3 F 07/12/24 07:32 Pulse 70 07/12/24 07:32 Resp 17 07/12/24 07:32 BP 106/68 07/12/24 07:32 Pulse Ox 99 07/12/24 07:32 FiO2 Intake & Output 07/11/24 07/12/24 07/12/24 18:59 06:59 18:59 Intake Total 2100 Output Total 250 Balance 2100 -250 Weight 55 kg Intake: Oral 2100 Output: Urine 250 Other: Voiding Method Bedpan # Voids 2 1 1 - Labs CBC & Chem 7: 07/11/24 02:56 07/11/24 02:56
--- NOTE | 2024-07-12 13:01 | P.PN ---
Subjective Progress Note Date: 07/12/24 Patient is a 69-year-old white female with past medical history significant for alcoholism, polysubstance abuse. Patient has not followed with a primary care provider in over 4 years. Reportedly was found unresponsive on the ground by her family at home. Family briefly attempted CPR before calling EMS. According to the patient, she was having several days worth of black tarry stools. Apparently, had some abdominal discomfort and was treating this with Motrin [id number] every 4 hours. Denies anticoagulants. She denies any history of GI bleed. On arrival to the ED on 07/06/2024, her hemoglobin was critically low at 4.1 g/dL. Dr. Manjarrez did take the patient for EGD yesterday found a 2 cm d eep gastric ulceration, but no active bleeding. This area was biopsied. There was also short segment Anaya esophagus. Patient was admitted to the selective care unit for observation. While on the floor, developed hematemesis. Rapid response team was initiated. Underwent bedside EGD, and is status post epinephrine injection and Endo Clip placement. Patient has received a total of 3 units PRBCs, an additional unit of packed red blood cells was infusing at the moment. She is now being evaluated in the intensive care unit. No further GI bleeding noted by nursing staff. Most recent hemoglobin is up to 6.5 g/dL. Denies shortness of breath, chest pain, lightheadedness. Blood pressure norm otensive. Nontachycardic. Patient is currently tearful. Reportedly drinks 2, 24 ounce beers per day. Serum alcohol level was 121 on arrival. Patient is on the CIWA protocol. Urine toxicology screen positive for opiates, TCAs, benzodiazepines, and marijuana. CBC: WBC count 13, hemoglobin 6.5, hematocrit 19.2, platelets 203. CMP: Sodium 136, potassium 3.9, chloride 111, serum bicarb 24, BUN 27, creatinine 0.96, glucose 132. LFTs unremarkable on arrival. Ammonia less than 9. Troponin 0.013. Normal saline infusing at 125 mL/h. Not on any vasopressors. Patient seen today on 07/09/2024, patient remains in the ICU, on 2 L nasal cannula, patient is a bit restless agitated with known history of alcohol abuse, her CIWA score is 8. No further episodes of GI bleeding, her hemoglobin is st able, patient is hemodynamically stable, not in any pulmonary distress, hence I will arrange for the patient to transfer out of the ICU to the medical surgical floor. In the meantime we need to continue CIWA protocol for her history of alcohol abuse. WBC count is 8.8 hemoglobin is 8.1 electrolytes are normal renal profile is normal The patient is seen today July 10, 2024 in follow-up on the regular medical floor. She was transferred out of the ICU yesterday. She is awake and alert in no acute distress. She is maintaining O2 saturations in the 90s on 2 L/min per nasal cannula. She is status post 4 units of packed red blood cells this admission. Current hemoglobin 8.2. White count 7.5. Platelets 182. Sodium 134. Potassium 3.5. Bicarb 26. BUN 11. Creatinine 0.92. Glucose 111. Chest x-ray reveals moderate cardiomegaly with pulmonary vascular congestion and interstitial edema. She has been on Lasix 40 mg IV every 12 hours. She is in a negative balance currently. She remains on the CIWA protocol. The patient is seen today July 11, 2024 in follow-up on the regular medical floor. She is currently sitting up in bed. Awake and alert in no acute distress. He is having increased cough and congestion. She is a former tobacco smoker. Admits to smoking marijuana recently. No further GI bleeding noted. Continued on IV Protonix. She remains on IV diuretics. Remains on the CIWA protocol. Currently in a negative balance. The patient is seen today July 12, 2024 in follow-up on the regular medical floor. She is currently sitting up in a chair. Awake and alert in no acute distress. Maintaining O2 saturations in the 90s on 2 L/min per nasal cannula. Chest x-ray shows mild pulmonary vascular congestion. Procalcitonin negative at 0.09. Currently on Zosyn. Currently on IV diuretics. She remains on the CIWA protocol. Objective - Vital Signs Vital signs: Vital Signs Temp 98.3 F 07/12/24 07:32 Pulse 70 07/12/24 07:32 Resp 17 07/12/24 07:32 BP 106/68 07/12/24 07:32 Pulse Ox 99 07/12/24 07:32 FiO2 Intake & Output 07/11/24 07/12/24 07/12/24 18:59 06:59 18:59 Intake Total 2100 Output Total 250 Balance 2100 -250 Weight 55 kg Intake: Oral 2100 Output: Urine 250 Other: Voiding Method Bedpan # Voids 2 1 1 - Exam GENERAL EXAM: Alert, 69-year-old female, up in a chair, on 2 L nasal cannula, in no apparent distress. HEAD: Normocephalic. EYES: Normal reaction of pupils, equal size. NOSE: Clear with pink turbinates. THROAT: No erythema or exudates. NECK: No masses, no JVD. CHEST: No chest wall deformity. LUNGS: Equal air entry with crackles in the bilateral bases. CVS: S1 and S2 normal with no audible murmur, regular rhythm. ABDOMEN: No hepatosplenomegaly, normal bowel sounds, no guarding or rigidity. SPINE: No scoliosis or deformity SKIN: No rashes CENTRAL NERVOUS SYSTEM: No focal deficits, tone is normal in all 4 extremities. EXTREMITIES: There is no peripheral edema. No clubbing, no cyanosis. Peripheral pulses are intact. - Labs CBC & Chem 7: 07/11/24 02:56 07/11/24 02:56 Assessment and Plan Assessment: Acute upper GI bleeding secondary to antral gastric ulcers status post epinephrine injection and Endo Clip, hemostasis achieved. Had a total of 4 units of packed RBCs for this acute blood loss Acute blood loss anemia, secondary to above Syncopal event Acute hypoxic respiratory failure secondary to suspected diastolic congestive heart failure, fluid volume overload Anaya's esophagus Acute alcohol intoxication, reportedly drinks 2, 24 ounce beers per day, serum EtOH level was 121 on arrival History of alcoholism Polysubstance abuse, urine toxicology screen positive for opiates, TCAs, benzodiazepines, and marijuana. History of cocaine/methamphetamine use in the past Remote history of tobacco use Plan: The patient was seen and evaluated Chest x-ray, echocardiogram, labs and medications reviewed Continue IV diuretics Procalcitonin negative Discontinue Zosyn Continue Protonix Continue the CIWA protocol Titrate down the FiO2 as tolerated We will continue to follow I have personally seen and examined the patient, performed the documentation and the assessment and plan as written. Number of minutes spent on the visit: 10 Dictation was produced using [employer] dictation software. Please excuse any grammatical, word or spelling errors.
--- NOTE | 2024-07-12 13:13 | P.DS ---
Providers Date of admission: 07/06/24 02:44 Expected date of discharge: 07/12/24 Attending physician: Mattie Esparza MD Consults: 07/06/24 02:44 Consult Physician Routine Consulting Provider: Yesenia Singh Consult Reason/Comments: GI bleeding. Do you want consulting provider notified?: Yes 07/07/24 18:17 Consult Physician Urgent Consulting Provider: Levi Garcia Consult Reason/Comments: ICU management Do you want consulting provider notified?: Already Contacted 07/07/24 20:55 Consult Physician Routine Consulting Provider: Dario Moreno Consult Reason/Comments: GI Bleed Do you want consulting provider notified?: Yes, Notify in am Primary care physician: Stated None Hospital Course: Earlier this evening, the daughters went to her home to find her unresponsive on her couch with minimal bleeding. One of her daughters started CPR and activated EMS. Upon EMS arrival, the patient was noted to have soiled herself with bloody stools. CT brain was revealed mild to moderate chronic small vessel ischemic changes with chest x-ray unremarkable. EKG revealed sinus rhythm at [address] segment depression in leads V3 to V6 as well as lead II. There was diffuse T wave flattening. Laboratory evaluation was remarkable for hemoglobin 4.1 (previously 12.9 in 2017), potassium 2.5, chloride 93, CO2 38, BUN 45, creatinine 1.62, glucose 146, serum alcohol level 121 with troponin 0.013. Fecal occult blood was positive as per the ED provider. Patient was transfused 2 unit PRBC and started on Protonix IV. GI consulted, underwent EGD which showed 2 cm deep gastric ulceration with a brown pigmented spot but no active bleeding along the incisura angularis. Around 5:30PM, she started to have profuse hematemesis (2L per RN). Patient was transferred to the ICU and transfused another [address] Singh performed a bedside EGD which showed actively bleeding gastric ulceration measuring 2 cm in size along the incisura angularis status post injection epinephrine followed by Endo Clip placement with good hemostasis. NG tube was inserted and discontinued. No further episodes of hematemesis. She did report some shortness of breath and cough, CXR showed volume overload for which she was started on Lasix. She diuresed well. Echo showed EF 55-60%. 07/12 Patient was seen and examined. Doing well. Worked well with PT and OT requesting walker. Plans for discharge home today. Continue Lasix 40 mg PO QD x 7 days. Continue Protonix 40 mg PO BID. Follow up with GI within 1 week of discharge and PCP within 1-2 days of discharge. Avoid Ibuprofen. Patient verbalized understanding of the plan. General: non toxic, no distress, appears at stated age Derm: warm, dry Head: atraumatic, normocephalic, symmetric Eyes: EOMI, no lid lag, anicteric sclera Mouth: no lip lesion, mucus membranes moist Cardiovascular: S1S2 reg, no murmur Lungs: Clear to auscultation bilateral, no rhonchi, no rales, no accessory muscle use Ext: no gross muscle atrophy, no edema, no contractures Neuro: no focal neuro deficits Psych: Alert, oriented, anxious Discharge Diagnosis: Pulmonary vascular congestion GI bleed Acute metabolic encephalopathy Alcohol withdrawal Back pain Resolved: HypoMg, HypoK, Acute metabolic encephalopathy, Leukocytosis, prerenal azotemia This complex discharge took 35 minutes to complete. Patient Condition at Discharge: Stable Plan - Discharge Summary New Discharge Prescriptions: New Furosemide [Lasix] 40 mg PO DAILY #7 tablet HYDROcodone/APAP 5-325MG [[place] 5-325] 1 tab PO Q4HR PRN 3 Days #18 tab PRN Reason: Pain Pantoprazole [Protonix] 40 mg PO BID #60 tab Acetaminophen Tab [Tylenol] 650 mg PO Q6HR PRN tab PRN Reason: Mild Pain Or Fever > 100.5 Discontinued Ibuprofen [Motrin Ib] 200 mg PO Q6H PRN PRN Reason: Pain Or Fever > 100.5 Discharge Medication List Acetaminophen Tab [Tylenol] 650 mg PO Q6HR PRN tab 07/12/24 [Rx] Furosemide [Lasix] 40 mg PO DAILY #7 tablet 07/12/24 [Rx] HYDROcodone/APAP 5-325MG [[place] 5-325] 1 tab PO Q4HR PRN 3 Days #18 tab 07/12/24 [Rx] Pantoprazole [Protonix] 40 mg PO BID #60 tab 07/12/24 [Rx] Follow up Appointment(s)/Referral(s): [facility] [REFERRING] - Mare Alvarez NPC [REFERRING] - 1 Week (Gastroenterology follow-up for new onset is liver cirrhosis, GI bleed, ulcer) [facility] [NON-STAFF] - As Needed (luz) [facility] [NON-STAFF] - [address],[place] [NON-STAFF] - As Needed (Please call to see if they have a shower chair) Yesenia Singh MD [STAFF PHYSICIAN] - 1 Week Activity/Diet/Wound Care/Special Instructions: Diet: Regular Discharge/Stand Alone Forms: AA Meetings [facility] [place] Pamphlet, Who Do I Call?, Community Resources, Help In The Home, Outpatient Counseling, Inp Substance Abuse Facilities, Area PCPs Discharge Disposition: HOME SELF-CARE
[2024-07-12 15:22] VITALS: BP 117/74; PULSE 82; RESP 16; TEMP 97.7
== END 2024-07-12 20:13 | disposition home or self-care (01) | DRG 377 ==
LOC: EC 00:05 → 3SCARD 02:44 → EEVIPCON 02:44 → 3SCARD 13:33 → 2SICU 07-07 17:32 → 4SSUR 07-09 18:30
PROVIDERS: ADMIT Internal Medicine; ATTEND Internal Medicine
PROC: 30233N1 Transfusion of Nonautologous Red Blood Cells into Peripheral Vein, Percutaneous Approach (ICD-10-PCS; 2024-07-06)
PROC: 0DB68ZX Excision of Stomach, Via Natural or Artificial Opening Endoscopic, Diagnostic (ICD-10-PCS; 2024-07-07)
PROC: 0W3P8ZZ Control Bleeding in Gastrointestinal Tract, Via Natural or Artificial Opening Endoscopic (ICD-10-PCS; 2024-07-07)
PROC: 3E0G8GC Introduction of Other Therapeutic Substance into Upper GI, Via Natural or Artificial Opening Endoscopic (ICD-10-PCS; 2024-07-07)
PROC: 0DB58ZX Excision of Esophagus, Via Natural or Artificial Opening Endoscopic, Diagnostic (ICD-10-PCS; principal; 2024-07-07 12:20)
DX: K25.4 Chronic or unspecified gastric ulcer with hemorrhage (principal); G93.41 Metabolic encephalopathy; I50.31 Acute diastolic (congestive) heart failure; J96.01 Acute respiratory failure with hypoxia; F10.231 Alcohol dependence with withdrawal delirium; D62 Acute posthemorrhagic anemia; N17.9 Acute kidney failure, unspecified; I11.0 Hypertensive heart disease with heart failure; F10.229 Alcohol dependence with intoxication, unspecified; F19.10 Other psychoactive substance abuse, uncomplicated; D72.828 Other elevated white blood cell count; E83.42 Hypomagnesemia; K21.9 Gastro-esophageal reflux disease without esophagitis; R53.81 Other malaise; K44.9 Diaphragmatic hernia without obstruction or gangrene; K22.70 Barrett's esophagus without dysplasia; E87.6 Hypokalemia; Y90.6 Blood alcohol level of 120-199 mg/100 ml; Z96.653 Presence of artificial knee joint, bilateral; Z87.891 Personal history of nicotine dependence
CPT/HCPCS: 36415; 36430; 43239; 43255; 70450; 71045; 72072; 72100; 80048; 80053; 80306; 80320; 81001; 82140; 82272; 83735; 83880; 84145; 84484; 85025; 85027; 85610; 85730; 86850; 86900; 86901; 86920; 88305; 88342; 93005; 93306; 96361; 96365; 96366; 96367; 96368; 96375; 96376; 99291

== ENCOUNTER 2024-11-18 20:55 | Observation (INO) | payer MEDICARE, OTHER ==
[2024-11-18] MEDS: SODIUM CHLORIDE 0.9% 1,000 ML IV ONE (22:44)
[2024-11-18 22:53] LABS: Basophils % (A) 0 %; Eosinophils # (A) 0.1 k/uL (0-0.7); Eosinophils % (A) 1 %; HCT 28.9 % (34.0-46.0); HGB 9.1 gm/dL (11.4-16.0); Hypochromasia Slight; Lymphocytes # (A) 1.6 k/uL (1.0-4.8); Lymphocytes % (A) 15 %; MCH 26.1 pg (25.0-35.0); MCHC 31.4 g/dL (31.0-37.0); MCV 83.2 fL (80.0-100.0); Mean Platelet Volume 8.8; Monocytes # (A) 0.8 k/uL (0-1.0); Monocytes % (A) 8 %; Neutrophils # (A) 7.5 k/uL (1.3-7.7); Neutrophils % (A) 74 %; Platelet Count 267 k/uL (150-450); RBC 3.47 m/uL (3.80-5.40); WBC 10.2 k/uL (3.8-10.6)
[2024-11-18] MEDS: KETOROLAC 15 MG/ML 1 ML VIAL IVP STA (23:00)
[2024-11-18] MEDS: HYDROmorphone 1 MG/ML 1 ML SYRINGE IVP STA (23:01)
[2024-11-18] MEDS: ACETAMINOPHEN TAB 325 MG TAB PO STA (23:03)
[2024-11-18 23:06] LABS: ALT 10 U/L (4-34); AST 17 U/L (14-36); African American GFR (CKD) 58 (>60 ml/min/1.73 sqM); Albumin 3.5 g/dL (3.5-5.0); Alkaline Phosphatase 80 U/L (38-126); Anion Gap 7 mmol/L; Blood Urea Nitrogen 15 mg/dL (7-17); Calcium 8.4 mg/dL (8.4-10.2); Carbon Dioxide 21 mmol/L (22-30); Chloride 100 mmol/L (98-107); Glucose 99 mg/dL (74-99); Non-African American GFR(CKD) 50 (>60 ml/min/1.73 sqM); Potassium 4.9 mmol/L (3.5-5.1); Sodium 128 mmol/L (137-145); Total Bilirubin 0.4 mg/dL (0.2-1.3); Total Protein 6.4 g/dL (6.3-8.2)
--- NOTE | 2024-11-18 23:13 | ED ---
Back Pain HPI - General Chief Complaint: Back Pain/Injury Stated Complaint: Pain Time Seen by Provider: 11/18/24 23:12 Source: patient, family (daughter), RN notes reviewed, old records reviewed Mode of arrival: ambulatory Limitations: no limitations - History of Present Illness Initial Comments: 69-year-old female presented to the ER for evaluation of right buttock pain. Patient reports over the past 2 days she has been experiencing a worsening stab amisha pain to her right buttock. She does state it radiates to posterior and anterior thigh. She denies any injuries or traumas. Patient is prescribed Vicodin, gabapentin and muscle relaxers for cervical spine pain and is not having relief with these. She denies a history of lumbar spine. She states pain makes it difficult for her to ambulate and she does not want to walk due to this pain. She denies any bowel or bladder incontinence/retention, saddle paresthesias or fevers at home. Daughter reports around 4 PM she contacted mother who stated she had the chills but temperature was not taken at that time. No history of IV drug abuse. Patient denies any cough, congestion, sore throat, chest pain, shortness of breath, abdominal pain, constipation/diarrhea, urinary complaints or peripheral edema. Patient does reports she is currently on antibiotics for recent UTI prescribed 10 days ago. - Related Data Home Medications Medication Instructions Recorded Confirmed DULoxetine HCL [Cymbalta] 30 mg PO QAM 10/20/24 10/21/24 HYDROcodone/APAP 5-325MG [[place] 1 tab PO Q8H PRN 10/20/24 10/21/24 5-325] QUEtiapine [SEROquel] 100 mg PO HS 10/20/24 10/21/24 RX: Acetaminophen Tab [Tylenol] 650 mg PO DIRECTED PRN 10/20/24 10/21/24 RX: Gabapentin 600 mg PO TID 10/20/24 10/21/24 Ferrous Sulfate [Feosol] 325 mg PO DIRECTED 10/21/24 10/21/24 cefuroxime axetiL [Ceftin] 500 mg PO BID 10/22/24 10/22/24 Previous Rx's Medication Instructions Recorded Pantoprazole [Protonix] 40 mg PO BID #60 tab 07/12/24 Allergies Allergy/AdvReac Type Severity Reaction Status Date / Time No Known Allergies Allergy Verified 11/18/24 21:13 Review of Systems ROS Statement: Those systems with pertinent positive or pertinent negative responses have been documented in the HPI. ROS Other: All systems not noted in ROS Statement are negative. Past Medical History Past Medical History: GERD/Reflux, GI Bleed Additional Past Medical History / Comment(s): chronic pain, ETOH, GI bleed. History of Any Multi-Drug Resistant Organisms: None Reported Past Surgical History: Hysterectomy Additional Past Surgical History / Comment(s): CARPAL TUNNEL, BILATERAL TOTAL KNEE REPLACEMENT Past Anesthesia/Blood Transfusion Reactions: No Reported Reaction Past Psychological History: Anxiety, Bipolar Smoking Status: Never smoker General Exam Limitations: no limitations General appearance: alert, in no apparent distress Respiratory exam: Present: normal lung sounds bilaterally. Absent: respiratory distress, wheezes, rales, rhonchi, stridor Cardiovascular Exam: Present: regular rate, normal rhythm, normal heart sounds. Absent: systolic murmur, diastolic murmur, rubs, gallop, clicks GI/Abdominal exam: Present: soft, normal bowel sounds. Absent: distended, tenderness, guarding, rebound, rigid Rectal exam: Present: normal inspection, normal rectal tone Extremities exam: Present: normal inspection, full ROM (Active), normal capillary refill (2+ bilateral DP/PT pulses. Negative straight leg raise bilaterally.), other (Tenderness to right buttock). Absent: tenderness, pedal edema, joint swelling, calf tenderness Back exam: Present: normal inspection, full ROM Neurological exam: Present: alert, oriented X3, CN II-XII intact Skin exam: Present: warm, dry, intact, normal color. Absent: rash Course Vital Signs 11/18/24 11/18/24 11/19/24 21:10 22:05 00:15 Temperature 99.9 F H 100.6 F H 98.0 F Pulse Rate 88 80 Respiratory 18 18 Rate Blood Pressure 120/59 120/61 O2 Sat by Pulse 98 97 Oximetry 11/19/24 01:30 Temperature 98.3 F Pulse Rate 84 Respiratory 18 Rate Blood Pressure 110/63 O2 Sat by Pulse 98 Oximetry - Reevaluation(s) Reevaluation #1: 11/18/24 23:12 Rectal exam performed and chaperoned by Swapna OLSEN. 11/19/24 02:41 Case discussed with [facility] for admission. Medical Decision Making - Medical Decision Making Was pt. sent in by a medical professional or institution (, [facility], RESEARCH AND DEVELOPMENT CHEMIST, urgent care, hospital, or custodial...) When possible be specific @ -No Did you speak to anyone other than the patient for history (EMS, parent, family, police, friend...)? What history was obtained from this source @ -Patient's daughter at bedside aiding in HPI and PMHx. Did you review nursing and triage notes (agree or disagree)? Why? @ -I reviewed and agree with nursing and triage notes Were old charts reviewed (outside hosp., previous admission, EMS record, old EKG, old radiological studies, urgent care reports/EKG's, custodial records)? Report findings @ -No old charts were reviewed Differential Diagnosis (chest pain, altered mental status, abdominal pain women, abdominal pain men, vaginal bleeding, weakness, fever, dyspnea, syncope, headache, dizziness, GI bleed, back pain, seizure, CVA, palpatations, mental health, musculoskeletal)? @ -Differential Back Pain: Strain, zoster, cauda equina syndrome, epidural abscess, vertebral osteomyelitis, discitis, fracture, subluxation, disc herniation, DJD, spinal stenosis, dissection, AAA, pancreatitis, peptic ulcer disease, pyelonephritis, kidney stone, this is not meant to be an all-inclusive list. EKG interpreted by me (3pts min.). @ -None done X-rays interpreted by me (1pt min.). @ -CXR interpreted me negative for consolidations, pneumothorax or pleural effusions. CT interpreted by me (1pt min.). @ -CT lumbar spine showing no acute fractures. Moderate L3-L4 spinal canal stenosis. Moderate left and mild right foraminal stenosis at L3-L4 U/S interpreted by me (1pt. min.). @ -None done What testing was considered but not performed or refused? (CT, X-rays, U/S, l abs)? Why? @ -None What meds were considered but not given or refused? Why? @ -None Did you discuss the management of the patient with other professionals (professionals i.e. [facility], RESEARCH AND DEVELOPMENT CHEMIST, lab, RT, psych nurse, clinical social work aide, block paver, teacher, chairman and chief executive officer, hospice case manager)? Give summary @ -Yes [facility] for admission Was smoking cessation discussed for >3mins.? @ -No Was critical care preformed (if so, how long)? @ -No Were there social determinants of health that impacted care today? How? (Homeles sness, low income, unemployed, alcoholism, drug addiction, transportation, low edu. Level, literacy, decrease access to med. care, intermediate, rehab)? @ -No Was there de-escalation of care discussed even if they declined (Discuss DNR or withdrawal of care, Hospice)? DNR status @ -No What co-morbidities impacted this encounter? (DM, HTN, Smoking, COPD, CAD, Cancer, CVA, ARF, Chemo, Hep., AIDS, mental health diagnosis, sleep apnea, morbid obesity)? @ -History of alcoholism last drink 07/02/24 Was patient admitted / discharged? Hospital course, mention meds given and route, prescriptions, significant lab abnormalities, going to OR and other pertinent info. @ -Admitted. 69-year-old female presented to the ER for evaluation of right buttock pain. Upon rooming patient with a temperature of 100.6. Vitals otherwise within acceptable limits. Patient is neurovascularly intact. Patient denies any bowel or bladder incontinence/retention, saddle paresthesias or history of IV drug abuse. There is pain noted to mid right buttock with no overlying skin changes. No weakness of lower extremities. Rectal exam with normal tone. Exam chaperoned by Swapna OLSEN. Given back pain and fever laboratory studies obtained. WBC of 10.2. Lactic 1.0. Hemoglobin 9.1 appears to be around patient's baseline, patient denies any current bleeding. Hyponatremic at 128 for which patient given 1 L IV fluid bolus. BUN 15 , creatinine 1.12 with a GFR 50. Urinalysis unremarkable. Viral swabs negative. Chest x-ray negative. CT lumbar spine showing no acute process. Patient given symptomatic treatment in the emergency department with Toradol, Dilaudid and Tylenol. Patient also given prednisone as right buttock pain believed to be sciatica. Given hyponatremia admission was considered and discussed with EM. Patient agreeable for admission at this time. Patient admitted in stable condit ion. Case discussed with ED attending, Dr. Jaffe. Undiagnosed new problem with uncertain prognosis? @ -No Drug Therapy requiring intensive monitoring for toxicity (Heparin, Nitro, Insuli n, Cardizem)? @ -No Were any procedures done? @ -No Diagnosis/symptom? @ -Hyponatremia Acute, or Chronic, or Acute on Chronic? @ -Acute Uncomplicated (without systemic symptoms) or Complicated (systemic symptoms)? @ -Complicated Side effects of treatment? @ -No Exacerbation, Progression, or Severe Exacerbation? @ -No Poses a threat to life or bodily function? How? (Chest pain, [place], [place], pneumonia, PE, COPD, DKA, ARF, appy, cholecystitis, CVA, Diverticulitis, Homicidal, Suicidal, threat to staff... and all critical care pts) @ -Possibly - Lab Data Result diagrams: 11/18/24 22:31 11/18/24 22:31 Lab Results 11/18/24 11/18/24 11/18/24 Range/Units 22:31 22:31 22:31 WBC 10.2 (3.8-10.6) k/uL RBC 3.47 L (3.80-5.40) m/uL Hgb 9.1 L (11.4-16.0) gm/dL Hct 28.9 L (34.0-46.0) % MCV 83.2 (80.0-100.0) fL MCH 26.1 (25.0-35.0) pg MCHC 31.4 (31.0-37.0) g/dL RDW 16.0 H (11.5-15.5) % Plt Count 267 (150-450) k/uL MPV 8.8 Neutrophils % 74 % Lymphocytes % 15 % Monocytes % 8 % Eosinophils % 1 % Basophils % 0 % Neutrophils # 7.5 (1.3-7.7) k/uL Lymphocytes # 1.6 (1.0-4.8) k/uL Monocytes # 0.8 (0-1.0) k/uL Eosinophils # 0.1 (0-0.7) k/uL Basophils # 0.0 (0-0.2) k/uL Hypochromasia Slight Sodium 128 L (137-145) mmol/L Potassium 4.9 (3.5-5.1) mmol/L Chloride 100 (98-107) mmol/L Carbon Dioxide 21 L (22-30) mmol/L Anion Gap 7 mmol/L BUN 15 (7-17) mg/dL Creatinine 1.12 H (0.52-1.04) mg/dL Est GFR (CKD-EPI)AfAm 58 (>60 ml/min/1.73 sqM) Est GFR (CKD-EPI)NonAf 50 (>60 ml/min/1.73 sqM) Glucose 99 (74-99) mg/dL Plasma Lactic Acid Yash 1.0 (0.7-2.0) mmol/L Calcium 8.4 (8.4-10.2) mg/dL Total Bilirubin 0.4 (0.2-1.3) mg/dL AST 17 (14-36) U/L ALT 10 (4-34) U/L Alkaline Phosphatase 80 (38-126) U/L Total Protein 6.4 (6.3-8.2) g/dL Albumin 3.5 (3.5-5.0) g/dL Urine Color Urine Appearance (Clear) Urine pH (5.0-8.0) Ur Specific Junior (1.001-1.035) Urine Protein (Negative) Urine Glucose (UA) (Negative) Urine Ketones (Negative) Urine Blood (Negative) Urine Nitrite (Negative) Urine Bilirubin (Negative) Urine Urobilinogen (<2.0) mg/dL Ur Leukocyte Esterase (Negative) Influenza Type A (PCR) (Not Detectd) Influenza Type B (PCR) (Not Detectd) RSV (PCR) (Not Detectd) SARS-CoV-2 (PCR) (Not Detectd) 11/18/24 11/19/24 Range/Units 22:31 01:34 WBC (3.8-10.6) k/uL RBC (3.80-5.40) m/uL Hgb (11.4-16.0) gm/dL Hct (34.0-46.0) % MCV (80.0-100.0) fL MCH (25.0-35.0) pg MCHC (31.0-37.0) g/dL RDW (11.5-15.5) % Plt Count (150-450) k/uL MPV Neutrophils % % Lymphocytes % % Monocytes % % Eosinophils % % Basophils % % Neutrophils # (1.3-7.7) k/uL Lymphocytes # (1.0-4.8) k/uL Monocytes # (0-1.0) k/uL Eosinophils # (0-0.7) k/uL Basophils # (0-0.2) k/uL Hypochromasia Sodium (137-145) mmol/L Potassium (3.5-5.1) mmol/L Chloride (98-107) mmol/L Carbon Dioxide (22-30) mmol/L Anion Gap mmol/L BUN (7-17) mg/dL Creatinine (0.52-1.04) mg/dL Est GFR (CKD-EPI)AfAm (>60 ml/min/1.73 sqM) Est GFR (CKD-EPI)NonAf (>60 ml/min/1.73 sqM) Glucose (74-99) mg/dL Plasma Lactic Acid Yash (0.7-2.0) mmol/L Calcium (8.4-10.2) mg/dL Total Bilirubin (0.2-1.3) mg/dL AST (14-36) U/L ALT (4-34) U/L Alkaline Phosphatase (38-126) U/L Total Protein (6.3-8.2) g/dL Albumin (3.5-5.0) g/dL Urine Color Colorless Urine Appearance Clear (Clear) Urine pH 6.0 (5.0-8.0) Ur Specific Junior 1.006 (1.001-1.035) Urine Protein Negative (Negative) Urine Glucose (UA) Negative (Negative) Urine Ketones Negative (Negative) Urine Blood Negative (Negative) Urine Nitrite Negative (Negative) Urine Bilirubin Negative (Negative) Urine Urobilinogen <2.0 (<2.0) mg/dL Ur Leukocyte Esterase Negative (Negative) Influenza Type A (PCR) Not Detected (Not Detectd) Influenza Type B (PCR) Not Detected (Not Detectd) RSV (PCR) Not Detected (Not Detectd) SARS-CoV-2 (PCR) Not Detected (Not Detectd) - Radiology Data Radiology results: report reviewed, image reviewed Disposition Clinical Impression: Hyponatremia, Buttock pain Disposition: ADMITTED IP TO THIS [facility] Condition: Stable Referrals: Julieta Bajwa III, MD [Primary Care Provider] - 1-2 days Time of Disposition: 02:41
[2024-11-18 23:34] LABS: Influenza A Not Detected (Not Detectd); Influenza B Not Detected (Not Detectd); RSV Not Detected (Not Detectd)
[2024-11-19] MEDS: HYDROmorphone 1 MG/ML 1 ML SYRINGE IVP STA (01:33)
[2024-11-19 01:50] LABS: Appearance,Urine Clear (Clear); Bilirubin,Urine Negative (Negative); Blood,Urine Negative (Negative); Color,Urine Colorless; Glucose,Urine (UA) Negative (Negative); Ketones,Urine Negative (Negative); Leukocyte Esterase,Urine Negative (Negative); Nitrite,Urine Negative (Negative); Protein,Urine Negative (Negative); Specific Gravity,Urine 1.006 (1.001-1.035); Urobilinogen,Urine <2.0 mg/dL (<2.0)
--- NOTE | 2024-11-19 02:18 | XR ---
EXAM: XR Chest, 2 Views CLINICAL HISTORY: ITS.REASON XR Reason: fever TECHNIQUE: Frontal and lateral views of the chest. COMPARISON: No relevant prior studies available. FINDINGS: Lungs: No consolidation or mass. Pleural space: No effusion. Heart: cardiomegaly. Bones/joints: No acute findings. IMPRESSION: No acute cardiopulmonary process.
--- NOTE | 2024-11-19 02:27 | CT ---
EXAM: CT Lumbar Spine Without Intravenous Contrast CLINICAL HISTORY: ITS.REASON CT Reason: right buttock pain TECHNIQUE: Axial computed tomography images of the lumbar spine without intravenous contrast. CTDI is 21.3 mGy and DLP is 838.8 mGy-cm. This CT exam was performed using one or more of the following dose reduction techniques: automated exposure control, adjustment of the mA and/or kV according to patient size, and/or use of iterative reconstruction technique. COMPARISON: No relevant prior studies available. FINDINGS: Vertebrae: No acute fracture. Grade 1 anterolisthesis L3 on L4-5 facet arthrosis. Discs/spinal canal/neural foramina: Moderate L3-4 spinal canal stenosis. Moderate left and mild right foraminal stenosis at L3-4 Soft tissues: Colonic diverticulosis. Mildly thickened lateral. IMPRESSION: No acute fracture. Moderate L3-4 spinal canal stenosis. Moderate left and mild right foraminal stenosis at L3-4
[2024-11-19] MEDS: predniSONE 50 MG TAB PO STA (02:42)
[2024-11-19] MEDS ORDERED: NALOXONE 0.4 MG/ML 1 ML VIAL IV PRN (02:42)
[2024-11-19] MEDS ORDERED: IBUPROFEN 400 MG TAB PO PRN (02:42)
[2024-11-19] MEDS: PANTOPRAZOLE 40 MG TABLET PO STA (02:50)
[2024-11-19] MEDS: QUEtiapine 100 MG TAB PO STA (02:50)
[2024-11-19] MEDS: SODIUM CHLORIDE 0.9% 1,000 ML IV SCH (02:52)
[2024-11-19] MEDS: ACETAMINOPHEN TAB 325 MG TAB PO PRN (05:20)
[2024-11-19] MEDS ORDERED: ONDANSETRON ODT 4 MG TAB PO PRN (12:05)
--- NOTE | 2024-11-19 12:13 | P.HPIM ---
History of Present Illness -year-old female came in with complaints of low back pain radiating to the right buttock stabbing pain. Patient denies any trauma is a muscle relaxers, opioids at home. Patient had a lumbar spine CT which showed moderate L3-L4 spinal stenosis moderate left and right foraminal stenosis L3 and L4 and patient states she cannot even walk and is in a lot of pain 10/10. At this time patient also found to be mildly hyponatremic with serum sodium of 128 and patient is on Bactrim at home for urinary tract infection patient has been on this antibiotic for about 2 weeks and still has 2 pills to complete and urinalysis is here is negative and patient does not have any UTI symptoms at this time. REVIEW OF SYSTEMS: All other systems are negative except those mentioned in the HPI PHYSICAL EXAMINATION: GENERAL: The patient is alert and oriented x3, not in any acute distress. Well developed, well nourished. HEENT: Pupils are round and equally reacting to light. EOMI. No scleral icterus. No conjunctival pallor. Normocephalic, atraumatic. No pharyngeal erythema. No thyromegaly. CARDIOVASCULAR: S1 and S2 present. No murmurs, rubs, or gallops. PULMONARY: Chest is clear to auscultation, no wheezing or crackles. ABDOMEN: Soft, nontender, nondistended, normoactive bowel sounds. No palpable organomegaly. MUSCULOSKELETAL: Severe pain and some tenderness in the lumbosacral area EXTREMITIES: No cyanosis, clubbing, or pedal edema. NEUROLOGICAL: Gross neurological examination did not reveal any focal deficits. SKIN: No rashes. Assessment and plan -Sciatica/L3-L4 lumbar stenosis. PT and OT consultation, patient will be started on steroids as an anti-inflammatory medications. Patient's creatinine is mildly high it is a false elevation so NSAIDs can be used and patient is already on Motrin which will be continued. Will continue with muscle relaxers will increase the dose of [place]. -Hyponatremia secondary to Bactrim will be discontinued patient will not need any more antibiotics at this time -Mild creatinine elevation can be false elevation or may have mild acute renal failure from Bactrim. Patient will be continued on IV fluids will repeat electrolytes tomorrow -Gastroesophageal reflux disease -GI bleed -Bipolar disorder for which patient is a regular schedule continued DVT prophylaxis: Low-dose Lovenox Past Medical History Past Medical History: GERD/Reflux, GI Bleed Additional Past Medical History / Comment(s): chronic pain, ETOH, GI bleed. History of Any Multi-Drug Resistant Organisms: None Reported Past Surgical History: Hysterectomy Additional Past Surgical History / Comment(s): CARPAL TUNNEL, BILATERAL TOTAL KNEE REPLACEMENT Past Anesthesia/Blood Transfusion Reactions: No Reported Reaction Past Psychological History: Anxiety, Bipolar Smoking Status: Former smoker Past Alcohol Use History: Abuse, Daily Past Drug Use History: Cocaine, Marijuana, Methamphetamine Medications and Allergies Home Medications Medication Instructions Recorded Confirmed Type Pantoprazole [Protonix] 40 mg PO BID #60 tab 07/12/24 11/19/24 Rx Acetaminophen Tab [Tylenol] 650 mg PO Q6H PRN 10/20/24 11/19/24 History DULoxetine HCL [Cymbalta] 30 mg PO QAM 10/20/24 11/19/24 History Gabapentin 600 mg PO TID 10/20/24 11/19/24 History HYDROcodone/APAP 5-325MG [[place] 1 tab PO Q8H PRN 10/20/24 11/19/24 History 5-325] QUEtiapine [SEROquel] 100 mg PO HS 10/20/24 11/19/24 History Ferrous Sulfate [Feosol] 325 mg PO DAILY 10/21/24 11/19/24 History Ondansetron Odt [Zofran Odt] 4 mg PO TID PRN 11/19/24 11/19/24 History Sulfamethoxazole/Trimethoprim 1 tab PO BID 11/19/24 11/19/24 History [Bactrim DS 800-160 mg] methocarbamoL [Robaxin-750] 750 mg PO QID 11/19/24 11/19/24 History Allergies Allergy/AdvReac Type Severity Reaction Status Date / Time NSAIDS (Non-Steroidal AdvReac Nausea & Verified 11/19/24 09:35 Anti-Inflamma Vomiting & Diarrhea Physical Exam Vitals: Vital Signs Temp Pulse Pulse Resp BP BP Pulse Ox 11/19/24 07:00 98.2 F 75 16 113/67 96 11/19/24 04:21 97.6 F 69 15 109/58 97 11/19/24 03:56 98.3 F 87 18 117/69 98 11/19/24 01:30 98.3 F 84 18 110/63 98 11/19/24 00:15 98.0 F 80 18 120/61 97 11/18/24 22:05 100.6 F H 11/18/24 21:10 99.9 F H 88 18 120/59 98 Intake and Output 11/18/24 11/19/24 11/19/24 22:59 06:59 14:59 Output Total 800 Balance -800 Output: Urine 800 Other: # Voids 2 # Bowel Movements 1 Weight 58.967 kg 58.967 kg Results CBC & Chem 7: 11/18/24 22:31 11/18/24 22:31 Labs: Abnormal Lab Results - Last 24 Hours (Table) 11/18/24 11/18/24 Range/Units 22:31 22:31 RBC 3.47 L (3.80-5.40) m/uL Hgb 9.1 L (11.4-16.0) gm/dL Hct 28.9 L (34.0-46.0) % RDW 16.0 H (11.5-15.5) % Sodium 128 L (137-145) mmol/L Carbon Dioxide 21 L (22-30) mmol/L Creatinine 1.12 H (0.52-1.04) mg/dL Thrombosis Risk Factor Assmnt - Choose All That Apply Each Risk Factor Represents 2 Points: Age 61-74 years Thrombosis Risk Factor Assessment Total Risk Factor Score: 2 Thrombosis Risk Factor Assessment Level: Low Risk
[2024-11-19] MEDS: GABAPENTIN 300 MG CAP PO SCH (12:18)
[2024-11-19] MEDS: HYDROcodone/APAP 10-325MG 1 EACH TAB PO PRN (12:18)
[2024-11-19] MEDS: PANTOPRAZOLE 40 MG TABLET PO SCH (12:18)
[2024-11-19] MEDS: methocarbamoL 750 MG TAB PO SCH (13:45)
[2024-11-19] MEDS: DULoxetine HCL 30 MG CAPSULE.DR PO SCH (13:45)
[2024-11-19] MEDS: QUEtiapine 100 MG TAB PO SCH (20:09)
[2024-11-19] MEDS: predniSONE 20 MG TAB PO SCH (20:10)
[2024-11-20] MEDS: ENOXAPARIN 30 MG/0.3 ML SYRINGE SQ SCH (08:09)
--- NOTE | 2024-11-20 11:26 | P.CNOR ---
History of Present Illness - HPI Consult date: 11/20/24 History of present illness: This is a 69-year-old female who was admitted for lower back pain. Orthopedics is consulted for further evaluation. Patient is seen and evaluated at bedside today. Patient states that she developed pain in the lower back radiating to the right buttock. Patient denies any injury. Patient states that the pain was severe and she was unable to ambulate. Patient presented to the emergency room and was admitted for further management. Patient states that her pain has now improved and she has been able to ambulate. Patient denies any fever/chills, numbness, weakness or tingling. Patient past medical history significant for GERD, history of GI bleed, chronic pain, and drug and alcohol abuse. Review of Systems See HPI. Past Medical History Past Medical History: GERD/Reflux, GI Bleed Additional Past Medical History / Comment(s): chronic pain, ETOH, GI bleed. History of Any Multi-Drug Resistant Organisms: None Reported Past Surgical History: Hysterectomy Additional Past Surgical History / Comment(s): CARPAL TUNNEL, BILATERAL TOTAL KNEE REPLACEMENT Past Anesthesia/Blood Transfusion Reactions: No Reported Reaction Past Psychological History: Anxiety, Bipolar Smoking Status: Former smoker Past Alcohol Use History: Abuse, Daily Past Drug Use History: Cocaine, Marijuana, Methamphetamine Medications and Allergies Home Medications Medication Instructions Recorded Confirmed Type Pantoprazole [Protonix] 40 mg PO BID #60 tab 07/12/24 11/19/24 Rx Acetaminophen Tab [Tylenol] 650 mg PO Q6H PRN 10/20/24 11/19/24 History DULoxetine HCL [Cymbalta] 30 mg PO QAM 10/20/24 11/19/24 History Gabapentin 600 mg PO TID 10/20/24 11/19/24 History HYDROcodone/APAP 5-325MG [[place] 1 tab PO Q8H PRN 10/20/24 11/19/24 History 5-325] QUEtiapine [SEROquel] 100 mg PO HS 10/20/24 11/19/24 History Ferrous Sulfate [Feosol] 325 mg PO DAILY 10/21/24 11/19/24 History Ondansetron Odt [Zofran Odt] 4 mg PO TID PRN 11/19/24 11/19/24 History Sulfamethoxazole/Trimethoprim 1 tab PO BID 11/19/24 11/19/24 History [Bactrim DS 800-160 mg] methocarbamoL [Robaxin-750] 750 mg PO QID 11/19/24 11/19/24 History Allergies Allergy/AdvReac Type Severity Reaction Status Date / Time NSAIDS (Non-Steroidal AdvReac Nausea & Verified 11/19/24 09:35 Anti-Inflamma Vomiting & Diarrhea Physical Examination On exam patient is resting comfortably in bed in no acute distress. Patient is alert and oriented 3. Lower back exam: There is no tenderness to palpation over the lumbar spine. There is no step- off, deformity, swelling or erythema. Patient has some tenderness to palpation over the posterior aspect of the right hip. Patient has full active and passive range of motion of the right hip without pain or difficulty. Bilateral lower extremities are warm and well-perfused. Patient moves bilateral upper and lower extremities freely and without pain. Sensation intact bilaterally. Neurovascular status and circulatory status are intact. Results A CT report of the lumbar spine shows: 1. No acute fracture. Moderate L3-4 spinal canal stenosis. Moderate left and mild right foraminal stenosis at L3-4. - Labs Labs: H & H 11/18/24 Range/Units 22:31 Hgb 9.1 L (11.4-16.0) gm/dL Hct 28.9 L (34.0-46.0) % Result Diagrams: 11/18/24 22:31 11/18/24 22:31 Assessment and Plan (1) Sciatica Current Visit: Yes Status: Acute Code(s): M54.30 - SCIATICA, UNSPECIFIED SIDE SNOMED Code(s): 17180723 Plan: 1. Continue current pain regimen. 2. Physical therapy for mobilization. 3. Patient symptoms are improving and she has been able to ambulate. CT of the lumbar spine is reviewed. There is no surgical indication. Patient would benefit from a prednisone taper upon discharge. Patient may follow-up with [facility] on an outpatient basis.
--- NOTE | 2024-11-20 14:29 | P.PN ---
Subjective -year-old female came in with complaints of low back pain radiating to the right buttock stabbing pain. Patient denies any trauma is a muscle relaxers, opioids at home. Patient had a lumbar spine CT which showed moderate L3-L4 spinal stenosis moderate left and right foraminal stenosis L3 and L4 and patient states she cannot even walk and is in a lot of pain 10/10. At this time patient also found to be mildly hyponatremic with serum sodium of 128 and patient is on Bactrim at home for urinary tract infection patient has been on this antibiotic for about 2 weeks and still has 2 pills to complete and urinalysis is here is negative and patient does not have any UTI symptoms at this time. 11/20 She feels better Has good appetite She still have abdominal cramps, she has little tenderness in the left area close to the umbilicus She has 4 bowel movements this morning Per patient and daughter at bedside pain controlled As per daughter this is the first time of C. difficile, patient was counseled to follow-up with Dr. Baptiste in 1 week after discharge and patient and daughter agreeable Review of systems CONSTITUTIONAL: No fever, no malaise, no fatigue. HEENT: No recent visual problems or hearing problems. Denied any sore throat. CARDIOVASCULAR: No orthopnea, PND, no palpitations, no syncope. PULMONARY: No shortness of breath, no cough, no hemoptysis. NEUROLOGICAL: No headaches, no weakness, no numbness. HEMATOLOGICAL: Denies any bleeding or petechiae. Active Medications Generic Name Dose Route Start Last Admin Trade Name Freq PRN Reason Stop Dose Admin Acetaminophen 650 mg 11/19/24 02:42 11/19/24 05:20 Acetaminophen Tab 325 Mg Tab PO 650 mg Q6HR PRN Administration Mild Pain or Fever > 100.5 Hydrocodone Bitart/Acetaminophen 1 each 11/19/24 12:06 11/20/24 08:10 Hydrocodone/Apap 10-325mg 1 Each Tab PO 1 each Q6HR PRN Administration Moderate Pain (Scale 4 to 6) Duloxetine HCl 30 mg 11/19/24 12:15 11/20/24 08:09 Duloxetine Hcl 30 Mg Capsule. PO 30 mg QAM ONUR Administration Enoxaparin Sodium 30 mg 11/20/24 09:00 11/20/24 08:09 Enoxaparin 30 Mg/0.3 Ml Syringe SQ 30 mg DAILY ONUR Administration Gabapentin 600 mg 11/19/24 12:30 11/20/24 08:09 Gabapentin 300 Mg Cap PO 600 mg TID ONUR Administration Sodium Chloride 1,000 mls @ 50 mls/hr 11/19/24 02:45 11/19/24 21:59 Saline 0.9% IV 50 mls/hr .Q20H ONUR Administration Ibuprofen 400 mg 11/19/24 02:42 Ibuprofen 400 Mg Tab PO Q6HR PRN Mild Pain or Fever > 100.5 Methocarbamol 750 mg 11/19/24 13:00 11/20/24 08:10 Methocarbamol 750 Mg Tab PO 750 mg QID ONUR Administration Naloxone HCl 0.2 mg 11/19/24 02:42 Naloxone 0.4 Mg/Ml 1 Ml Vial IV Q2M PRN Opioid Reversal Ondansetron HCl 4 mg 11/19/24 12:05 Ondansetron Odt 4 Mg Tab PO TID PRN Nausea And Vomiting Pantoprazole Sodium 40 mg 11/19/24 12:15 11/20/24 08:10 Pantoprazole 40 Mg Tablet PO 40 mg BID ONUR Administration Prednisone 20 mg 11/19/24 21:00 11/20/24 08:09 Prednisone 20 Mg Tab PO 20 mg BID ONUR Administration Quetiapine Fumarate 100 mg 11/19/24 21:00 11/19/24 20:09 Quetiapine 100 Mg Tab PO 100 mg HS ONUR Administration Objective - Vital Signs Vital signs: Vital Signs Temp 98.7 F 11/20/24 07:15 Pulse 80 11/20/24 07:15 Resp 17 11/20/24 07:15 BP 133/67 11/20/24 07:15 Pulse Ox 98 11/20/24 07:15 FiO2 Intake & Output 11/19/24 11/20/24 11/20/24 18:59 06:59 18:59 Intake Total 360 360 Output Total 800 Balance -440 360 Intake: Oral 360 360 Output: Urine 800 Other: # Voids 0 4 1 # Bowel Movements 0 1 1 - Exam GENERAL: The patient is alert and oriented x3, not in any acute distress. Well developed, well nourished. HEENT: Pupils are round and equally reacting to light. EOMI. No scleral icterus. No conjunctival pallor. Normocephalic, atraumatic. No pharyngeal erythema. No thyromegaly. CARDIOVASCULAR: S1 and S2 present. No murmurs, rubs, or gallops. PULMONARY: Chest is clear to auscultation, no wheezing , no crackles. -ABDOMEN: Soft, n mild left-sided tenderness, nondistended, normoactive bowel sounds. No palpable organomegaly. MUSCULOSKELETAL: No joint swelling or deformity. EXTREMITIES: No cyanosis, clubbing, or pedal edema. NEUROLOGICAL: Gross neurological examination did not reveal any focal deficits. SKIN: No rashes. no petechiae. - Labs CBC & Chem 7: 11/18/24 22:31 11/18/24 22:31 Assessment and Plan Assessment: Assessment and plan -Sciatica/L3-L4 lumbar stenosis. PT and OT consultation, patient will be started on steroids as an anti-inflammatory medications. Patient's creatinine is mildly high it is a false elevation so NSAIDs can be used and patient is already on Motrin which will be continued. Will continue with muscle relaxers will increase the dose of [place]. -Hyponatremia secondary to Bactrim will be discontinued patient will not need a ny more antibiotics at this time -Mild creatinine elevation can be false elevation or may have mild acute renal failure from Bactrim. Patient will be continued on IV fluids will repeat electrolytes tomorrow -Gastroesophageal reflux disease -GI bleed -Bipolar disorder for which patient is a regular schedule continued DVT prophylaxis: Low-dose Lovenox
[2024-11-20 14:52] VITALS: BP 144/77; PULSE 91; RESP 18; TEMP 98.6
== END 2024-11-20 17:17 | disposition home health service (06) ==
LOC: EC 20:55 → 6NMEDSUR 11-19 02:54
PROVIDERS: ADMIT Hospitalist; ATTEND Hospitalist
DX: M54.30 Sciatica, unspecified side (principal); M48.061 Spinal stenosis, lumbar region without neurogenic claudication; E87.1 Hypo-osmolality and hyponatremia; T36.8X5A Adverse effect of other systemic antibiotics, initial encounter; R79.89 Other specified abnormal findings of blood chemistry; K92.2 Gastrointestinal hemorrhage, unspecified; K21.9 Gastro-esophageal reflux disease without esophagitis; F31.9 Bipolar disorder, unspecified; F41.9 Anxiety disorder, unspecified; Z11.52 Encounter for screening for COVID-19; Z87.891 Personal history of nicotine dependence; Z79.899 Other long term (current) drug therapy; Z88.6 Allergy status to analgesic agent
CPT/HCPCS: 96372; 96376; 96374; 96375; 99284; 36415; 97161; 80053; 83605; 84295; 85025; 81003; 87636; 71046; 72131; G0378 ×2; J1650; J1171 ×2; J1885; J7512 ×3

== ENCOUNTER 2024-12-07 09:48 | Day surgery (SDC) | payer MEDICARE, OTHER ==
[2024-12-07] MEDS: IV FLUID CONTINUATION 1,000 ML IV ONE (10:20)
[2024-12-07] MEDS: LACTATED RINGERS 1,000 ML BAG IV STA (10:27)
[2024-12-07 10:32] VITALS: RESP 18; TEMP 98
[2024-12-07] MEDS ORDERED: LIDOCAINE 1% INJ 10MG/ML (20 ML MDV) ONE (11:08)
[2024-12-07] MEDS ORDERED: PROPOFOL 10 MG/ML 20 ML VIAL IV ONE (11:08)
--- NOTE | 2024-12-07 11:17 | P.PCN ---
Date of Procedure: 12/07/24 Procedure(s) Performed: BRIEF HISTORY: Patient is a 60-year-old, pleasant, white female scheduled for an upper endoscopy as a part of follow-up of large gastric ulcer that was noted in June 2024 when she presented with severe massive upper GI bleed. Upper endoscopy revealed a 2 cm ulcer along the distal angularis. She has since been on Protonix 40 mg daily and has been avoiding NSAIDs. She is asymptomatic.. PROCEDURE PERFORMED: Esophagogastroduodenoscopy. PREOPERATIVE DIAGNOSIS: Follow-up large gastric ulcer noted in June 2024. IV sedation per anesthesia. PROCEDURE: After informed consent was obtained, the patient was brought into the endoscopy unit. IV sedation was administered by Anesthesia under continuous monitoring. Initially the Olympus GIF-140 video endoscope was inserted into the mouth. Esophagus intubated without any difficulty. It was gradually advanced into the stomach and duodenum and carefully examined. The bulb and the second part of the duodenum appeared normal. The scope at this time was withdrawn to the stomach, adequately insufflated with air, and upon careful examination, mucosa of the antrum, and mild gastritis. Previously noted gastric ulcer along the incisura angularis is completely healed. Mucosa of the body, cardia and the fundus appeared normal. The scope was then withdrawn into the esophagus. Small hiatal hernia noted. The GE junction was located at 39 cm from the incisors. The esophagus appeared normal. There were no erosions or ulcerations seen and the patient tolerated the procedure well. IMPRESSION: 1. Completely healed antral ulcer. 2. Mild gastritis 3. Small hiatal hernia. RECOMMENDATIONS: The findings of this examination were discussed with the patient as well as her family. She was advised to continue with Protonix as needed for reflux symptoms. Continue to avoid NSAIDs.
[2024-12-07 11:43] VITALS: BP 113/59; PULSE 67
== END 2024-12-07 12:00 | disposition home or self-care (01) ==
LOC: ORWHC2ENDO 09:48
PROVIDERS: ATTEND Internal Medicine Gastroenterology
DX: Z09 Encounter for follow-up examination after completed treatment for conditions other than malignant neoplasm (principal); K29.70 Gastritis, unspecified, without bleeding; K44.9 Diaphragmatic hernia without obstruction or gangrene; Z87.11 Personal history of peptic ulcer disease; K21.9 Gastro-esophageal reflux disease without esophagitis; F41.9 Anxiety disorder, unspecified; F31.9 Bipolar disorder, unspecified; Z79.899 Other long term (current) drug therapy
CPT/HCPCS: 43235; J2003; J2704